=== PATIENT | female | born 1975 | race Caucasian/White ===

== ENCOUNTER → 2022-06-29 | Outpatient (CLI) | payer OTHER, SELFPAY ==
[2022-06-29 10:18] LABS: Hematocrit 41.8 % (37-47); Hemoglobin 13.8 g/dL (12.0-15.0); Mean Corpuscular Hgb 30.9 pg (27.0-32.0); Mean Corpuscular Volume 93.5 fL (81-99); Mean Platelet Vol. 11.9 fl (6.2-12.0); Platelet Count 288 K/mm3 (150-450); RBC Distribution Width CV 12.7 % (11.6-14.6); RBC Distribution Width SD 43.5 fl (35.1-43.9); Red Blood Count 4.47 M/mm3 (4.2-5.4); White Blood Count 8.5 K/mm3 (4.4-11.0)
[2022-06-29 11:01] LABS: ALB/GLOB Ratio 1.1 RATIO (0.9-2.4); AST(SGOT) 11 U/L (15-37); Alanine Aminotransfer ALT/SGPT 23 U/L (13-56); Albumin, Serum 3.6 g/dL (3.2-5.0); Alkaline Phosphatase 65 U/L (45-117); Anion Gap 3 (5-15); BUN 13 mg/dL (7-18); BUN/Creat Ratio 16.2 RATIO (10-20); Calcium,Total 8.6 mg/dL (8.5-10.1); Chloride 109 mmol/L (98-107); Cholesterol 177 mg/dL (200); EST Glomerular Filtration Rate 82 mL/min (>60); Est Glom Filt Rate - Afr Amer 100 mL/min (>60); Globulin 3.4 g/dL (2.2-4.2); Glucose 99 mg/dL (74-106); High Density Lipoprotein 51 mg/dL; Potassium 3.8 mmol/L (3.5-5.1); Sodium Level 138 mmol/L (136-145); Thyroid Stim Hormone (TSH) 2.24 uIU/mL (0.358-3.74); Triglycerides 78 mg/dL; Very Low Density Lipoprotein 16 mg/dL (5-40)
== END | disposition home or self-care (01) ==
LOC: MTLAB 07:11
PROVIDERS: PCP Nurse Practitioner Primary Care; Referring Provider Nurse Practitioner Primary Care; Visit Provider Nurse Practitioner Primary Care
DX: Z00.00 Encounter for general adult medical examination without abnormal findings (principal)
CPT/HCPCS: 36415; 80053; 80061; 84443; 85027

== ENCOUNTER → 2022-09-24 | Outpatient (CLI) | payer OTHER, SELFPAY ==
--- NOTE | 2022-09-21 | BRBX_PTH ---
PATIENT: RAGINI STAUFFER LOC: [facility] U#:[id number] AGE/SX: 46/F ROOM: RE09/24/[address]: Dr. 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 See comment. AM:jesica 09/27/2022 COMMENT Immunohistochemistry ([id number]) supports the above diagnosis. Case has been reviewed in consultation with Dr. Hooker who concurs with the above diagnosis. IDC:SJ MICROSCOPIC DESCRIPTION Slides are reviewed. GROSS DESCRIPTION Received in fixative is one container labeled with the patient's name and designated left breast tissue. The specimen consists of two cores of light andres tissue each measuring 1.5 cm in length and 0.1 cm in diameter. The specimen is totally submitted in one cassette. / AM 09/24/2022 TC:0 CPT: 23439 ADDENDUM ADDENDUM ADDENDUM ADDENDUM ADDENDUM ADDENDUM ADDENDUM ADDENDUM 11/17/2022 10:00 ADDENDUM 11/17/2022 10:00 ADDENDUM 11/17/2022 10:00 ADDENDUM 11/17/2022 10:00 ADDENDUM 11/17/2022 10:00 An order for Oncotype testing was received from Dr. Jenkins. This necessitated case review, block and slide selection by pathologist at [facility]. Breast Cancer Recurrence Score = 6 Results of the complete Oncotype testing ([employer] report) are viewable in EMR under: Reports - Pathology - Lab Pathology Report, Scanned.
--- NOTE | 2022-09-21 | IMM_PTH ---
PATIENT: RAGINI STUAFFER LOC: [facility] U#:[id number] AGE/SX: 46/F ROOM: RE09/24/[address]: Dr. Elver Byers MD : 1975 BED: DIS: 09/24/2022 SPEC #: [id number] RECD: 09/27/22 13:51 STATUS: ANNA MARIE REQ #: [id number] MARIANA: 09/21/22 00:[address]: Elver Byers DEPT: IMMUNOHISTOCHEMISTRY RECD BY: Alejandra Abdullahi ENTERED: 09/27/22 13:52 SP TYPE: IMMUNO OTHR DR: Jacquie Forrester, MAHI Tissues: Left breast, NOS Procedures: CALPONIN-1 (add) CK5-6 (add) CK8 (add) RENDON-2 (add) E-CAD (add) HER2 TEDDY (add) KI-67 (add) P53 (add) MI (add) P40 (add) ER (initial) PHYSICIAN & [address] [address] SPECIMEN INFORMATION: Tissue Source: Left breast tissue Clinical Info: Left breast biopsy Specimen Number: [id number] CPT code: 84683, 53635 x7, 96945 x3 METHODOLOGY: Deparaffinized sections of prefer/formalin-fixed tissue or PAP/DQ stained slides are incubated with monoclonal/polyclonal antibodies/oligonucleotide probes. Localization is made via biotin free immunoperoxidase method. Appropriate controls are performed and reacted as expected. Results on target cell population are indicated in the following table: RESULTS: ANTIBODY / CLONE RESULT P53 (DO-7) positive, 2% dim Ki-67 (30-9) positive, 5% CK8 (29frhfU36) positive CK5-6 (D5 & 1684) negative Calponin-1 (CW471H) negative P40 (BC28) negative E-Cad (ECH-6) positive RENDON-2 (SP21) positive MORPHOMETRIC ANALYSIS ER (clone 6F11) >95%, strong intensity MI (clone 16/1E2) >95%, strong intensity Her-2Neu (clone CB11) 0 The prognostic test for HER2 is performed on formalin-fixed paraffin embedded tissue. A 3+ (positive) staining pattern is defined as intense, homogeneous, complete, circumferential membranous staining in >10% of contiguous tumor cells. A similar weak (2+) staining pattern is interpreted as equivocal. OK follow-up testing is recommended for all equivocal cases. Positivity/negativity for ER/MI is reported if > or < 1% of the tumor cells are immuno- reactive, respectively. The ASCO/CAP criteria is used for scoring. Reference: Journal of Clinical Oncology, 2013; 31:7309-4709 & 2010; 16:8867-8301. Duration of fixation: 127.5 Hrs; Sample Adequate: Yes. These assays have not been validated on decalcified tissues. Results should be interpreted with caution given the likelihood of false negativity on decalcified specimens. These tests were developed and their performance characteristics determined by [facility]. They may not have been cleared or approved by the U.S. Food and Drug Administration. The FDA has determined that such clearance or approval is not necessary. The above immunohistochemical/dualISH markers are ordered and reviewed by the Pathologist. INTERPRETATION: Left breast, biopsy: Invasive ductal carcinoma, nuclear grade 1/3 Positive for estrogen receptors (favorable prognostic indicator). Positive for progesterone receptors (favorable prognostic indicator). Negative for overexpression of TIJ9qeg. AM:jesica 09/28/2022
--- NOTE | 2022-09-24 10:57 | BI_ITS ---
MAMMOGRAPHY - UNILATERAL DIAGNOSTIC: LEFT BREAST REASON FOR EXAM: Female, 46 years old. Postbiopsy and clip placement. PERTINENT HISTORY: Left breast biopsy. TECHNIQUE: Digital unilateral breast denis (3D mammographic acquisition) in the CC and MLO projections. 2-D mediolateral oblique (MLO) and craniocaudad (CC) views of both breasts were obtained. CAD: Full Field Digital Mammography with Computer Added Detection was performed. COMPARISON: None. FINDINGS: Breast Composition: The breasts are heterogeneously dense, which may obscure small masses. The tissue clip marker is seen in the upper mid medial aspect of the left breast. No other significant abnormalities are identified. BI/DIAG MAMM W/CAD, UNILAT IMPRESSION: Clip is seen within the upper mid medial aspect of the left breast. ASSESSMENT CATEGORY: BIRADS Category 2: Benign. A letter regarding these results will be sent to the patient by the facility within 30 days. Approximately 10% of breast cancers are not detected by mammography. A normal mammogram should not delay biopsy of a clinically suspicious abnormality. Electronically Signed: Reginald Underwood MD at 11:45 EDT ,
== END | disposition home or self-care (01) ==
PROVIDERS: PCP Nurse Practitioner Primary Care; Referring Provider Surgery; Visit Provider Surgery
DX: C50.912 Malignant neoplasm of unspecified site of left female breast (principal); R92.8 Other abnormal and inconclusive findings on diagnostic imaging of breast
CPT/HCPCS: 77065; 88305; 88341; 88342

== ENCOUNTER 2022-10-06 07:32 | Day surgery (SDC) | payer OTHER, SELFPAY ==
--- NOTE | 2022-10-04 09:19 | EKG12_ITS ---
Test Reason : PRE OP Blood Pressure : / mmHG Vent. Rate : 057 BPM Atrial Rate : 057 BPM P-R Int : 132 ms QRS Dur : 084 ms QT Int : 388 ms P-R-T Axes : 069 047 058 degrees QTc Int : 377 ms Sinus bradycardia Otherwise normal ECG Confirmed by PHILLIP HOLBROOK, OLU ([id number]), editor farm journal ROBY NICHOLSON ([id number]) on 10/05/2022 7:10:26 AM Referred By: Elver Byers Confirmed By:OLU FISHER MD
--- NOTE | 2022-10-04 09:25 | RAD_ITS ---
INDICATION: PREOP -- LEFT BREAST CANCER EXAMINATION/TECHNIQUE: X-RAY - XR Chest 2 Views COMPARISON: FINDINGS: LINES/DEVICES: None. LUNGS: No consolidation, edema or effusion. No pneumothorax. MEDIASTINUM AND CARDIOVASCULAR STRUCTURES: Cardiac silhouette not enlarged. Central airways and mediastinal contour are unremarkable. BONES AND SOFT TISSUES: Unremarkable. RAD/Chest PA and Lateral IMPRESSION: No radiographic evidence of acute cardiopulmonary disease. Electronically Signed: Pedro Mack, at 10:41 EDT ,
[2022-10-04 10:10] LABS: Hematocrit 43.7 % (37-47); Hemoglobin 14.4 g/dL (12.0-15.0); Mean Corpuscular Hgb 31.3 pg (27.0-32.0); Mean Platelet Vol. 11.9 fl (6.2-12.0); Platelet Count 252 K/mm3 (150-450); RBC Distribution Width CV 13.2 % (11.6-14.6); RBC Distribution Width SD 45.6 fl (35.1-43.9); White Blood Count 9.6 K/mm3 (4.4-11.0)
[2022-10-04 10:54] LABS: ALB/GLOB Ratio 0.9 RATIO (0.9-2.4); AST(SGOT) 11 U/L (15-37); Alanine Aminotransfer ALT/SGPT 16 U/L (13-56); Albumin, Serum 3.5 g/dL (3.2-5.0); Alkaline Phosphatase 67 U/L (45-117); Anion Gap 3 (5-15); BUN 9 mg/dL (7-18); BUN/Creat Ratio 11.2 RATIO (10-20); Chloride 110 mmol/L (98-107); EST Glomerular Filtration Rate 82 mL/min (>60); Est Glom Filt Rate - Afr Amer 99 mL/min (>60); Globulin 3.7 g/dL (2.2-4.2); Glucose 97 mg/dL (74-106); Protein, Total 7.2 g/dL (6.4-8.2); Sodium Level 139 mmol/L (136-145)
--- NOTE | 2022-10-06 | AXNB_PTH ---
PATIENT: RAGINI STAUFFER LOC: [facility] U#:[id number] AGE/SX: 46/F ROOM: RE10/06/[address]: Dr. Elver Byers MD : 1975 BED: DIS: 10/06/2022 SPEC #: [id number] RECD: 10/06/22 12:00 STATUS: ANNA MARIE VIVIEN #: [id number] MARIANA: 10/06/22 00:[address]: Elver Byers DEPT: SURGICAL PATHOLOGY RECD BY: Alejandra Abdullahi ENTERED: 10/06/22 13:22 SP TYPE: AX NODE BX OTHR DR: Jacquie Forrester NP Tissues: A - Axillary lymph node, NOS B - Left breast, NOS Procedures: Frozen Section (charge) Surgery Specimen Level V HEADER OPERATION: Left breast stereotactic wire loc with blue dye and radiotracer PRE-OP DIAGNOSIS: Abnormal left breast mammogram TISSUE SUBMITTED: A - [place] lymph nodes, frozen section, B - Left breast mass, wire - anterior, short stitch - superior, long stitch - lateral FROZEN SECTION DIAGNOSIS A. [place] lymph node, biopsy: Seven out of seven lymph nodes, negative for metastatic carcinoma. SJ:jesica 10/06/2022 MICROSCOPIC DIAGNOSIS A. Left axillary sentinel lymph nodes, biopsy: Seven out of seven lymph nodes negative for carcinoma. See comment. B. Left breast mass, lumpectomy: Invasive ductal carcinoma. See synoptic report below. AM:jesica 10/11/2022 COMMENT A. Immunohistochemistry ([id number]) supports the above diagnosis. B. INVASIVE BREAST CANCER SUMMARY: Procedure - excision with wire guidance Specimen: Type - partial breast Size - 7.0 x 5.5 x 2.0 cm Laterality - left breast Tumor: Site - not specified Size - 0.5 x 0.5 x 0.5 cm Histologic type - invasive ductal carcinoma. Focality - single focus of carcinoma. Histologic Grade (Fran grade): Glandular/tubular differentiation - score 1 Nuclear pleomorphism - score 2 Mitotic count - score 1 Overall grade - 1 (score of 4) Ductal carcinoma in situ: Present Estimated quantification (% of tumor volume) - 10% Number of blocks - 2 of 10 blocks Architectural pattern - cribriform Nuclear grade - grade 1/3 Necrosis - not present Lobular carcinoma in situ (LCIS) - not present Tumor extension: Skin - no skin present. Nipple - no nipple present. Skeletal muscle - no skeletal muscle present. Margins: Distance of invasive carcinoma from closest margin (anterior margin) - 10.0 mm Lymph nodes: Number of sentinel lymph nodes examined - 7 Total number of lymph nodes examined (sentinel and nonsentinel) - 7 No evidence of macrometastases, micrometastases or isolated tumor cells. Treatment effect - unknown Lymphvascular invasion - not identified Microcalcifications: present in neoplastic and non-neoplastic tissue. Additional pathologic findings - non proliferative fibrocystic change, adenosis, focal intraductal hyperplasia, focal lobular involution and banal microcalcifications. Ancillary studies - previously performed on section of tumor ([id number] / [id number]). ER - positive (>95%, strong intensity) KS - positive (>95%, strong intensity) Her2 sarah - negative (0) PATHOLOGIC STAGE: pT1a N0 Mx The above summary is in compliance with [employer] [place] (CAP) Cancer Protocols Checklist and [place] Joint Committee on Cancer (AJCC), Staging Manual, 8th Ed. Case has been reviewed in consultation with Dr. Hooker who concurs with the above diagnosis. IDC:SJ MICROSCOPIC DESCRIPTION Slides are reviewed. GROSS DESCRIPTION A - Received fresh for frozen section diagnosis labeled with the patient's name is a specimen designated sentinel lymph node. The specimen consists of a piece of adipose tissue containing nodule measuring 5.0 x 4.0 x 1.5 cm. Nodules consistent with lymph nodes measure 0.5 to 3.0 cm in greatest dimension. The lymph nodes are submitted entirely for frozen section diagnosis in seven cassettes as follows: 1??one bisected lymph node, 2 - two lymph nodes, 3 - two lymph nodes, 4 - one bisected lymph node, 5?&?6 - one bisected lymph node (largest lymph node). / SJ:jesica 10/06/2022 B - Received fresh for OR consultation labeled with the patient's name is a specimen designated left breast mass. The specimen consists of a lumpectomy specimen with wire guidance and orientation measuring 7.0 x 5.5 x 2.0 cm and weighing 48 gm. The specimen is differentially inked as follows: anterior - yellow, posterior - black, superior - blue, inferior - green, medial - red and lateral - orange. Serial sections reveal a spiculated white lesion measuring 0.5 cm in diameter and located 1.0 cm from its closest (anterior) margin of resection. The proximity of the lesion from closest margin is conveyed to the surgeon intraoperatively. The uninvolved breast parenchyma is mostly yellow-andres with occasional white streaks. No other mass lesion is identified. [employer] sections are submitted as follows: 1 & 2 - perpendicular margins, 3 & 4 - mass, bisected and totally submitted, 5-10 - c s s representative sections of uninvolved breast parenchyma. Note, sections will be submitted after additional fixation. / AM:jesica 10/07/2022 TC:0 CPT: 17492 x2, 35853, 41781
--- NOTE | 2022-10-06 | IMM_PTH ---
PATIENT: RAGINI STAUFFER LOC: [facility] U#:[id number] AGE/SX: 46/F ROOM: RE10/06/[address]: Dr. Elver Byers MD : 1975 BED: DIS: 10/06/2022 SPEC #: [id number] RECD: 10/11/22 13:29 STATUS: ANNA MARIE REQ #: [id number] MARIANA: 10/06/22 00:[address]: Elver Byers DEPT: IMMUNOHISTOCHEMISTRY RECD BY: Alejandra Abdullahi ENTERED: 10/11/22 13:30 SP TYPE: IMMUNO OTHR DR: Jacquie Forrester NP Tissues: A - Axillary lymph node, NOS Procedures: CK8 (add) Pankeratin (initial) Pankeratin (add) PHYSICIAN & INSTITUTION [place] [id number] SPECIMEN INFORMATION: Tissue Source: A - [place] lymph nodes Clinical Info: Abnormal left breast mammogram Specimen Number: [id number] CPT code: 10484, 45990 x11 METHODOLOGY: Deparaffinized sections of prefer/formalin-fixed tissue or PAP/DQ stained slides are incubated with monoclonal/polyclonal antibodies/oligonucleotide probes. Localization is made via biotin free immunoperoxidase method. Appropriate controls are performed and reacted as expected. Results on target cell population are indicated in the following table: RESULTS: ANTIBODY / CLONE RESULT Block A1 CK8 ([id number]) negative AE1-3 (AE1/AE3/PCK26) negative Block A2 CK8 (05hshtU45) negative AE1-3 (AE1/AE3/PCK26) negative Block A3 CK8 (42kowtB11) negative AE1-3 (AE1/AE3/PCK26) negative Block A4 CK8 (10teepZ12) negative AE1-3 (AE1/AE3/PCK26) negative Block A5 CK8 (21oqtjQ41) negative AE1-3 (AE1/AE3/PCK26) negative Block A6 CK8 (64bywjQ19) negative AE1-3 (AE1/AE3/PCK26) negative These tests were developed and their performance characteristics determined by [facility]. They may not have been cleared or approved by the U.S. Food and Drug Administration. The FDA has determined that such clearance or approval is not necessary. The above immunohistochemical/dualISH markers are ordered and reviewed by the Pathologist. INTERPRETATION: A. Left axillary sentinel lymph nodes, biopsy: Seven out of seven lymph nodes negative for carcinoma. AM:jesica 10/12/2022
--- NOTE | 2022-10-06 07:44 | NM_ITS ---
PROCEDURE: NUCLEAR MEDICINE Injection [place] Node - LEFT breast(s). REASON FOR EXAM: Female, 46 years old. Left breast cancer. TECHNIQUE: Downey node localization using radionuclide methods of the LEFT breast(s) was performed following subcutaneous administration of 1.1 mCi of of sulfur colloid Tc-99m. COMPARISON STUDIES : Comparison is made with prior mammogram dated September 24, 2022. FINDINGS: 1.1 mCi of technetium sulfur colloid was injected subcutaneously in 4 equal aliquots in the periareolar region. NM/Lymph Node Injection Only IMPRESSION: 1.1 mCi of technetium labeled sulfur colloid was injected subcutaneously in 4 equal aliquots in the periareolar region for sentinel node imaging. Electronically Signed: Reginald Underwood MD at 8:55 EDT ,
[2022-10-06 07:56] LABS: Internal QC Validated? YES +Cl - CLEAR BKGD; Pregnancy, Urine Negative Negative
[2022-10-06 08:07] VITALS: BP 117/73; PULSE 66; RESP 16; TEMP 36.7; O2SAT 100; BMI 25.4
[2022-10-06] MEDS: Lactated Ringers 1,000 ML 15 ML IV (08:17)
--- NOTE | 2022-10-06 08:59 | PCM.HP.BLA ---
History and Physical Date of Admission: 10/06/22 Allergies No Known Allergies Allergy (Verified 09/29/22 11:08) Medications No Known/Unobtainable [No Known Home Medications] 03/20/13 [History Confirmed 09/29/22] [facility] Medical History Abnormal mammogram of left breast Social History Smoking Status: Never smoker HPI HPI HPI: 46-year-old female returns status post ultrasound-guided needle core biopsy upper inner left breast that I performed for her on September 21, 2022. She returns now to discuss pathology. 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 I have no clinical evidence of metastatic disease. Based upon preoperative imaging this item is somewhere between 7 and 16 mm in size. She presents with her today for a consultative appointment. Left breast, core biopsy: Invasive ductal carcinoma with the follow characteristics: Nuclear grade ? 1/3 Maximal length ? 6 millimeters Rare microcalcification RESULTS: ANTIBODY / CLONE RESULT P53 (DO-7) positive, 2% dim Ki-67 (30-9) positive, 5% CK8 ([id number]) positive CK5-6 (D5 & 1684) negative Calponin-1 (KF818S) negative P40 (BC28) negative E-Cad (ECH-6) positive RENDON-2 (SP21) positive MORPHOMETRIC ANALYSIS ER (clone 6F11) >95%, strong intensity OR (clone 16/1E2) >95%, strong intensity Her-2Neu (clone CB11) 0 My previous notes reflect the following Visit Reasons: L BREAST BIRADS 4/5 Chief Complaint: FNA Allergies No Known Allergies Allergy (Verified 09/24/22 10:55) Medications No Known/Unobtainable [No Known Home Medications] 03/20/13 [History Confirmed 09/24/22] [facility] Medical History (Updated 09/24/22 @ 11:[address] Elver Byers MD) Abnormal mammogram of left breast Social History Smoking Status: Never smoker HPI HPI HPI: 46-year-old female was referred by Zefeirno Llanes for surgical consultation regarding abnormal left breast imaging and a written compromise surgical consult recommendations will return to him. At [facility] on September 20, 2022 the patient had left breast ultrasonography. This was performed because mammograms suggested architectural distortion left breast 11 o'clock position. On ultrasound a 7 mm irregular spiculated hypoechoic mass left breast 11 o'clock position +5 cm was identified. Left axillary lymph nodes were felt to be normal. BI-RADS Category 4. Biopsy recommended. On the mammogram the area of architectural distortion left breast 11 o'clock position was felt to be approximately 1.6 cm in diameter. I have reviewed the mammogram and ultrasound images and concur. 46-year-old female. G6, P1 85. Medical age 14. First of child born when she was 27. She did breast-feed briefly. No previous breast biopsies. Not on any estrogen replacement therapy. No family history of breast cancer. No nipple discharge or bleeding. On self breast examination she is not able to detect any masses. Only pertinent medical history is asthma but she has not required treatment for years. ROS General General: No weight change, appetite, fatigue, colon cancer, breast cancer or weakness HEENT HEENT: No difficulty swallowing, eye injury, eye surgery, swollen glands or hoarseness Endo Endocrine: No thyroid disease, diabetes mellitus, thyroid cancer, Hair loss, heat intolerance or cold intolerance Skin Skin: No rash or changing moles Breast Breast: No left breast lump, right breast lump, nipple discharge, breast pain, abnormal mammogram, abnormal US or breast enlargement Musc Musculoskeletal: Yes arthritis; No back problems, rheumatoid arthritis, gout or joint pain Cardio Cardiovascular: No murmur, pacemaker, heart disease, atrial fibrillation, high blood pressure, heart attack, heart stent, palpitations, shortness of breat with exertion or chest pain Psych Psychiatric: No depression, anxiety or hearing voices Resp Respiratory: No shortness of breath, No sleep apnea, No cough, No COPD, Yes asthma, No emphysema and No wheezing Gastro Gastrointestinal: No abdominal pain, No nausea or vomiting, No diarrhea, No constipation, No blood in stool, No acid reflux, No hemorrhoids, No ulcers, No gallbladder problem and No black,tarry stools Jordan Hematologic: No blood thinners, No blood disorders, No bleeding, No anemia and No blood clots Neuro Neurologic: No system reviewed and no additional complaints, except as documented, No as per HPI, No abnormal gait, No abnormal hearing, No abnormal movements, No abnormal speech, No behavioral changes, No burning sensations, No confusion, No convulsions, No disequilibrium, No dizziness, No localized weakness, No frequent falls, No headache(s), No lack of coordination, No loss of vision, No memory loss, No numbness, No other visual disturbances, No radicular pain, No restless legs, No sensory deficit, No syncope, No tingling, No tremor(s), No weakness and No other Exam Const General: cooperative, healthy appearing, comfortable and no acute distress [facility] Head: normal to inspection Chest Other: Bilateral breasts: No focal masses. No nipple discharge. No axillary clavicular adenopathy Left breast: Fibrous fullness upper inner left breast but no distinct mass Resp Effort & Inspection: normal respiratory effort Auscultation: clear to auscultation bilaterally Cardio Rate: regular rate Rhythm: regular rhythm Office Procedures Biopsy Provider Documentation Ultrasound-guided needle core biopsy upper inner left breast 11:00 +5 cm Timeout informed consent was obtained. Patient was taken the procedure room her was in attendance. Left breast was prepped with Betadine. Ultrasound was extensively used to identify what I felt matched the preoperative imaging obtained from [facility]. Under ultrasound guidance images were obtained. 1% lidocaine mixed 50-50 with 0.5% Marcaine was used as a local anesthetic. A total of 8 cc was used. A small stab incision was created. A 14-gauge Monopty needle was advanced to prefire depth. Pre and post fire films were obtained. 3 cores were obtained. A marking clip was left in position. Pressure was held for hemostasis. She seemed to tolerate the procedure well. The specimens were immediately transferred to formalin for analysis. Steri-Strip Telfa OpSite dressing applied followed by ice pack. Elver Byers M.D., F.A.C.S. Biopsy Breast Biopsy: [id number] US Guidance Procedure Time Out Time Out Informed consent given: Yes Consent signed: Yes Time out checklist: patient, procedure, site marked/identified, positioning of patient, supplies available, allergies confirmed and team agrees on procedure Time out staff in room: Yes Time out verified: Yes Time out date: 09/24/22 Time out time: 10:40 Assessment and Plan Assessment and Plan (1) Abnormal mammogram of left breast: Status: Acute Orders: Orders DIAG MAMM W/CAD, UNILAT Today R92.8 - Other abnormal and inconclusive findings on diagnostic imaging of breast Plan Imaging concerns upper inner left breast on mammogram suggesting 1.6 cm and on ultrasound a 7 mm item. Ultrasound imaging was challenging however I felt that I had identified the area of concern. The patient tolerated the ultrasound-guided needle core biopsy well. We will obtain post biopsy left unilateral mammograms to confirm clip placement. She has had an opportunity to ask and have questions answered. We will have her return to the office next week to review the biopsy site and pathology. I appreciate the opportunity of assisting with her surgical care. I have personally reviewed the patient's left mammogram postbiopsy images and believe that the marking clip appears to be in the clear location of concern identified on images provided from [facility]. Copy: KAYLAH YapC and Zeferino Llanes NP-C Elver Byers M.D., F.A.C.S. ROS General General: No weight change, appetite, fatigue, colon cancer, breast cancer or weakness HEENT HEENT: No difficulty swallowing, eye injury, eye surgery, swollen glands or hoarseness Endo Endocrine: No thyroid disease, diabetes mellitus, thyroid cancer, Hair loss, heat intolerance or cold intolerance Skin Skin: No rash or changing moles Breast Breast: No left breast lump, right breast lump, nipple discharge, breast pain, abnormal mammogram, abnormal US or breast enlargement Musc Musculoskeletal: Yes arthritis; No back problems, rheumatoid arthritis, gout or joint pain Cardio Cardiovascular: No murmur, pacemaker, heart disease, atrial fibrillation, high blood pressure, heart attack, heart stent, palpitations, shortness of breat with exertion or chest pain Psych Psychiatric: No depression, anxiety or hearing voices Resp Respiratory: No shortness of breath, No sleep apnea, No cough, No COPD, Yes asthma, No emphysema and No wheezing Gastro Gastrointestinal: No abdominal pain, No nausea or vomiting, No diarrhea, No constipation, No blood in stool, No acid reflux, No hemorrhoids, No ulcers, No gallbladder problem and No black,tarry stools Jordan Hematologic: No blood thinners, No blood disorders, No bleeding, No anemia and No blood clots Neuro Neurologic: No system reviewed and no additional complaints, except as documented, No as per HPI, No abnormal gait, No abnormal hearing, No abnormal movements, No abnormal speech, No behavioral changes, No burning sensations, No confusion, No convulsions, No disequilibrium, No dizziness, No localized weakness, No frequent falls, No headache(s), No lack of coordination, No loss of vision, No memory loss, No numbness, No other visual disturbances, No radicular pain, No restless legs, No sensory deficit, No syncope, No tingling, No tremor(s), No weakness and No other Assessment and Plan Assessment and Plan (1) Breast cancer: Status: Acute Qualifiers: Breast location: upper inner quadrant of breast Estrogen receptor status: positive Laterality: left Patient sex: female Qualified Code(s): C50.212 - Malignant neoplasm of upper-inner quadrant of left female breast; Z17.0 - Estrogen receptor positive status [ER+] Plan: Early stage invasive ductal carcinoma upper inner left breast ER/OR positive HER2 negative. I propose for her hematology oncology consultation. Pending that I believe that she would be a good candidate for upper inner quadrant left breast conservation surgery. I have proposed for her stereotactic wire localization with blue dye and nuclear tracer left axillary sentinel lymph node biopsy with subsequent wire localized left breast lumpectomy and follow-up radiotherapy. She is aware of the technique, benefit, risk, alternatives. She has had an opportunity ask and have questions answered. We will tentatively look for an operative date. I certainly appreciate the ongoing consultative assistance. Copy:Jacquie Forrester NP, RESERVATIONS SALES AGENT-C Elver Byers M.D., F.A.C.S The patient has been seen by Dr. John Jenkins hematology oncology and he is reviewed her situation. He concurs with proceeding with breast conservation surgery. Patient's had an opportunity to ask and have questions answered. She presents and we will proceed as noted. Elver Byers M.D., F.A.C.S.
--- NOTE | 2022-10-06 09:43 | BI_ITS ---
SURGICAL BREAST SPECIMEN RADIOGRAPH CLINICAL: Document presence of tissue clip marker in biopsy specimen. FINDINGS: Specimen shows presence of tissue clip marker. Electronically Signed: Reginald Underwood MD at 12:31 EDT , BI/Breast Biopsy Specimen IMPRESSION: undefined
--- NOTE | 2022-10-06 10:24 | OP.PCM_ITS ---
Problems Associated Problem List Diagnoses (1) Breast cancer, left: Report of Operation Date of Procedure: 10/06/22 Pre-Operative Diagnosis: Upper inner quadrant left breast invasive ductal carcinoma Post-Operative Diagnosis: Same Surgery/Procedure Performed:: Stereotactic wire localization upper inner left breast with subsequent blue dye and nuclear tracer left axillary sentinel lymph node biopsy and wire localized upper inner left breast lumpectomy. Description of Surgical Findings:: Timeout and informed consent was obtained. 46-year-old female was taken to the stereotactic room placed prone on the table the left breast was placed in a cranial caudal view the marking clip in question was rapidly identified stereotactic images obtained. Digital information was obtained on a single target site. The breast was prepped with Betadine. 1% lidocaine was used as a local anesthetic. 1 cc was used. The needle was advanced to depth placed 14 mm. The wire was displaced. On fast view demonstrated good localization. Sterile dressings were applied. She was subsequently taken the operating for planned definitive resection. The patient was subsequent taken to the operating room. She was placed upon the table normal general anesthesia. Ancef 2 g were given intravenously. Timeout informed consent obtained. The left arm was placed with soft roll to right angles to the table. Left breast and axilla sterilely prepped and draped. Oblique incision made in the left axilla partially guided by the neoprobe sharp dissection carried down through the left subcutaneous tissues. Hemostasis attained electrocautery and 3-0 Vicryl ligatures and hemoclips the lymphatic fluid tracking was identified in this tract to a moderately large blue lymph node while dissecting this free there were additional small lymph nodes all conglomerate together. The smaller lymph nodes were active on the neoprobe but did not have blue dye. I removed these conglomerate of lymph nodes as a con tinuum. Used the neoprobe there was some more inferior tissue which I dissected free and secured that with 3-0 Vicryl ligature. That tissue upon removal did not appear to have any lymph node tissue and was neoprobe negative. By visualization and palpation I found no additional hot or blue lymph node tissue. A Ray-Sherrell was left in place. Specimens were sent for frozen section. A curvilinear incision was made in the upper inner aspect of the left breast at the site of the wire localization circumferential dissection was performed with electrocautery lumpectomy was performed. Wire exited anteriorly a short suture superiorly and a long suture laterally. 4 small hemoclips were used to mika the biopsy site. The specimen sent for mammography. Pathology reported 7 lymph nodes negative. Pathology reported 1 cm clear anterior margin on the lesion. Both wounds were closed with deep layers of interrupted 3-0 Vicryl and then skin edges proximal and subsequent 4 Monocryl. Both wounds were anesthetized with 0.5% Marcaine. A total of 30 cc used. Sponge and instrument and needle counts were reported to the surgeon to be correct. Steri-Strips Telfa OpSite bulky dry dressings applied. Specimen left upper inner lumpectomy and left axillary sentinel lymph nodes. Drains none. Blood loss 5 cc. The patient was taken to the recovery room in satisfactory addition without apparent complication Synoptic Portion: Element Response Options Operation performed with curative intent. Yes Tracer(s) used to identify sentinel nodes in the upfront surgery (non-neoad juvant) setting (select all that apply). Blue dye and radioactive tracer Tracer(s) used to identify sentinel nodes in the neoadjuvant setting (select all that apply). Not applicable All nodes (colored or non-colored) present at the end of a dye-filled lymphatic channel were removed. Yes All significantly radioactive nodes were removed. Yes All palpably suspicious nodes were removed. Yes Biopsy-proven positive nodes marked with clips prior to chemotherapy were identified and removed. Not applicable Surgeon: Elver Byers Type of Anesthesia: General and Local Anesthesiologist: Eugenia Johnson
--- NOTE | 2022-10-06 10:29 | EX.PCM.DISCH ---
Discharge Instructions Procedure Breast Surgery Diet Discharge Diet: No restrictions Activity Discharge Activity: May Not Drive (for 2-3 days or while taking narcotic pain meds.) May shower in (days): 1 Lifting Restrictions: 10 pounds for 1 week. Dressing / Incision Call your doctor if your incision/area has: Continuous Slow Oozing and Sudden Increased Bleeding Call your doctor if you observe: Fever of 101 or Higher Suture Line Care: Avoid Pulling/Pushing and Avoid Pinching/Bending Remove Dressing in: 1 day Additional Dressing/Incision Instructions:: Remove bulky dressing tomorrow. May leave any opsite dressing for 3-4 days. Keep dressing in place until your follow-up appointment. Follow Up Care Please Follow Up With: Elver Byers MD When: Please contact the office at [phone] for office appointment follow-up on October 13, 2022 Test Results: Test results from this visit will be discussed in further detail at your follow-up appointment, if applicable. Discharge Plan Admission Primary Reason for Your Visit: Upper inner left breast cancer Attending Provider: Elver Byers Primary Care Provider: Jacquie Forrester NP Discharge Orders/Prescriptions Prescriptions: New hydrocodone-acetaminophen 5-325 mg tablet 1 tab PO Q6H PRN (Reason: pain) 2 Days Qty: 6 0RF Referrals / Follow Up: Jacquie Forrester NP, PROPERTY FIELD INSPECTOR-C [Primary Care Provider] - Disposition Disposition (needs filled in before D/C Order can be placed): Home, Self Care
[2022-10-06] MEDS: Cefazolin 2 GM in 0.9% Normal Saline 100 ML IV (10:43)
[2022-10-06] MEDS: Isosulfan Blue 1% 5 ML Vial (11:07)
[2022-10-06] MEDS: Bupivacaine Mpf 0.5% 30 ML VIAL (12:28)
[2022-10-06 12:46] VITALS: BP 114/64; BP 117/73; PULSE 64; RESP 16; TEMP 36.7; O2SAT 99
[2022-10-06 13:00] VITALS: BP 114/77; BP 117/73; PULSE 73; RESP 16; O2SAT 97
[2022-10-06 13:15] VITALS: BP 113/73; BP 117/73; PULSE 66; RESP 16; O2SAT 99
[2022-10-06 13:35] VITALS: BP 112/63; BP 117/73; PULSE 59; RESP 16; TEMP 36.6; O2SAT 98
[2022-10-06] MEDS: HYDROcodone Bitartrate/Apap 5/325 Tablet PO (14:11)
[2022-10-06 14:56] VITALS: BP 117/73; BP 123/68; PULSE 64; RESP 17; TEMP 37.2; O2SAT 99
== END 2022-10-06 15:08 | disposition home or self-care (01) ==
LOC: SDC 07:33 → AC 07:34
PROVIDERS: Anesthesiology; PCP Nurse Practitioner Primary Care; Referring Provider Surgery; Visit Provider Surgery
PROC: (CPT 19301; principal; 2022-10-06 10:45)
DX: C50.212 Malignant neoplasm of upper-inner quadrant of left female breast (principal); Z17.0 Estrogen receptor positive status [ER+]; M19.90 Unspecified osteoarthritis, unspecified site; J45.909 Unspecified asthma, uncomplicated
CPT/HCPCS: 19301; 38525; 19283; 00404; 19281; 36415; 38792; 71046; 76098; 80053; 81025; 85027; 88305; 88307; 88331; 88341; 88342; 93005; A4648; A9541; J7120; J2405; J3490; Q9968

== ENCOUNTER 2022-10-20 08:48 | Outpatient (CLI) | payer OTHER, SELFPAY ==
--- NOTE | 2022-10-20 08:56 | BD_ITS ---
STUDY: DUAL ENERGY X-RAY ABSORPTIOMETRY / DXA REASON FOR EXAM: Female, 46 years old. POSSIBLY STARTING TAMOXIFEN TECHNIQUE: Bone Mineral Density (BMD) measurements of lumbar spine and bilateral hips were obtained. COMPARISON: None. FINDINGS: Lumbar Spine (L1-L4): g/cm2 (1.199) / T-score (1.3) / Z-score (1.8) Findings are suggestive of normal bone density with a low fracture risk. Left Femur Total: g/cm2 (1.002) / T-score (0.5) / Z-score (0.8) Left Femoral Neck: g/cm2 (0.831) / T-score (-0.2) / Z-score (0.3) Right Femur Total: g/cm2 (0.972) / T-score (0.2) / Z-score (0.6) Right Femoral Neck: g/cm2 (0.835) / T-score (-0.1) / Z-score (0.3) BD/Dexa Bone Density Study IMPRESSION: The patient is considered normal as outlined below according to World Justin Organization (WHO) criteria with a low fracture risk. Reference Information: The T-score is the number of standard deviations above or below the standard which is normal for young adults at their peak bone mineral density. The World Health Organization (WHO) interprets the T-scores as follows: Above -1 Normal bone density Between -1 and -2.5 Osteopenia Equal to / or below -2.5 Osteoporosis As a practical clinical guideline, osteopenia may be graded as follows: Mild -1 through -1.5 Moderate -1.6 through -2.0 Severe -2.1 through -2.4 The Z-score is the number of standard deviations above or below age-matched controls. A Z-score of less than -1.5 would be considered abnormal. References: 1. NIH Osteoporosis and Related Bone Diseases www osteo.org 2. International Society for Clinical Densitometry www iscd.org 3. National Osteoporosis Foundation www nof.org Electronically Signed: Reginald Underwood MD at 9:01 EDT ,
== END 2022-10-20 23:59 | disposition home or self-care (01) ==
PROVIDERS: PCP Nurse Practitioner Primary Care; Referring Provider Internal Medicine Medical Oncology; Visit Provider Internal Medicine Medical Oncology
DX: Z13.820 Encounter for screening for osteoporosis (principal); C50.912 Malignant neoplasm of unspecified site of left female breast
CPT/HCPCS: 77080

== ENCOUNTER → 2023-02-25 | Outpatient (CLI) | payer OTHER, SELFPAY ==
[2023-03-04 12:08] LABS: HPV APTIMA, High Risk Negative (Negative)
== END | disposition home or self-care (01) ==
LOC: LABSPEC 16:50
PROVIDERS: PCP Nurse Practitioner Primary Care; Referring Provider Obstetrics & Gynecology; Visit Provider Obstetrics & Gynecology
DX: Z12.4 Encounter for screening for malignant neoplasm of cervix (principal)
CPT/HCPCS: 87624; 88175; G0145

== ENCOUNTER → 2023-02-28 | Outpatient (CLI) | payer OTHER, SELFPAY ==
--- NOTE | 2023-02-28 08:54 | US_ITS ---
STUDY: ULTRASOUND BREAST - RIGHT REASON FOR EXAM: Female, 47 years old. Right breast lump. TECHNIQUE: Axial and longitudinal images of the RIGHT breast were performed with a high resolution ultrasound transducer. # OF IMAGES: 29 COMPARISON: Comparison is made with prior mammogram done earlier in the day. FINDINGS: RIGHT Breast: The upper outer quadrant of the right breast was examined with ultrasound. There is evidence of probable glandular tissue. Mild ductal dilatation. US/Breast Limited Unilateral IMPRESSION: Mildly dilated ducts in the upper outer quadrant of the right breast. ASSESSMENT CATEGORY: BIRADS Category 2: Benign. A letter regarding these results will be sent to the patient by the facility within 30 days. Electronically Signed: Reginald Underwood MD at 10:41 EST ,
--- NOTE | 2023-02-28 08:54 | BI_ITS ---
MAMMOGRAPHY - BILATERAL DIAGNOSTIC REASON FOR EXAM: Female, 47 years old. Palpable lump in the upper-outer aspect of the right breast. PERTINENT HISTORY: Personal history of breast cancer. Prior left lumpectomy with radiation therapy. TECHNIQUE: Digital bilateral breast denis (3D mammographic acquisition) in the CC and MLO projections. 2-D mediolateral oblique (MLO) and craniocaudad (CC) views of both breasts were obtained. CAD: Full Field Digital Mammography with Computer Added Detection was performed. COMPARISON: Comparison is made with prior mammogram dated September 24, 2022 and October 06, 2022. Comparison is also made with prior outside examination is September 06, 2022. FINDINGS: Breast Composition: The breasts are heterogeneously dense, which may obscure small masses. There are no dominant masses or suspicious calcifications. The patient is status post lumpectomy in the deep upper slightly medial aspect of the left breast with resultant postoperative deformity. Surgical clips are seen in the left axillary region. No other significant abnormalities are identified. BI/DIAG MAMM W/CAD, BILAT IMPRESSION: Status post left lumpectomy with postoperative changes at the operative site as described. With the patient''s history of a palpable lump in the upper-outer quadrant of the right breast, targeted ultrasound correlation is recommended. ASSESSMENT CATEGORY: BIRADS Category 0: Incomplete. Need additional imaging evaluation. A letter regarding these results will be sent to the patient by the facility within 30 days. Approximately 10% of breast cancers are not detected by mammography. A normal mammogram should not delay biopsy of a clinically suspicious abnormality. Electronically Signed: Reginald Underwood MD at 10:12 [facility] [[email or web address]] ,
== END | disposition home or self-care (01) ==
LOC: OPBI 08:53
PROVIDERS: PCP Nurse Practitioner Primary Care; Referring Provider Obstetrics & Gynecology; Visit Provider Obstetrics & Gynecology
DX: N63.10 Unspecified lump in the right breast, unspecified quadrant (principal); Z85.3 Personal history of malignant neoplasm of breast
CPT/HCPCS: 76642; 77062; 77066; G0279

== ENCOUNTER 2023-03-06 15:57 | Emergency (ER) | payer OTHER, SELFPAY ==
[2023-03-06 15:59] VITALS: BP 124/77; PULSE 60; RESP 16; TEMP 36.6; O2SAT 98; BMI 23.8
--- NOTE | 2023-03-06 16:05 | EX.ED.GENINJ ---
HPI History of Present Illness Chief Complaint: Laceration PFSH PFS Medical History Abnormal mammogram of left breast Arthritis Asthma Bruises easily Cancer Dietary lactose intolerance Heartburn during Hypertension Migraine Non-smoker Wears glasses Home Medications multivitamin 1 tab PO DAILY 01/25/23 [History Last Taken Unknown] Allergy/AdvReac Type Severity Reaction Status Date / Time nalbuphine [From Nubain] Allergy Severe NUMBNESS Verified 03/06/23 15:59 Family History Mother Colon cancer Surgical History History of lumpectomy (~09/2022) Hx of breast biopsy Hx of colonoscopy Hx of dilation and curettage Social History (Updated 02/25/23 @ 09:19 by Keya Mcelroy) Smoking Status: Never smoker alcohol intake: never substance use type: does not use caffeine: No what type of physical activity do you participate in: none seatbelt use: always do you feel safe at home: Yes additional social history: -Stefan EXAM Physical Exam Const Vital Signs: 03/06/23 15:59 Temperature 97.9 F Temperature Source Temporal Pulse Rate 60 Respiratory Rate 16 Blood Pressure 124/77 H Blood Pressure Mean 92 Pulse Ox 98 Oxygen Delivery Method Room Air [facility] MDM Narrative Medical decision making narrative: HISTORY OF PRESENT ILLNESS: 47-year-old female presents with laceration to right pinky finger. REVIEW OF SYSTEMS: Pertinent positives: Laceration Pertinent negatives: Loss of sensation PHYSICAL EXAM: Nursing triage notes reviewed, Vital signs reviewed Constitutional: please see mdm HENT: MMM Eyes: Pupils equal round and reactive to light, Extraocular muscles intact Neck: No stridor, no JVD, full neck ROM Lungs: Clear to auscultation, No wheezing or rales. No increased work of breathing, no conversational dyspnea, no accessory muscle use, no nasal flaring. No respiratory distress noted Heart: Regular rate and rhythm, No murmurs, No rubs and No gallops, 2+ distal pulses (radial, femoral, posterior tibial) in all extremities Abdomen: Soft, there is no tenderness, rigidity, rebound or guarding, no obvious peritoneal signs, no palpable pulsatile abdominal masses, no auscultated abdominal bruit : No CVAT Extremities: No edema, intact Neuro: intact 5/5 strength with ok sign (median), intact finger abduction (ulnar) intact wrist extension (radial n). Intact sensation in the radial, ulnar, and median nerve distributions. Skin: Small approximately 0.5 cm linear laceration noted to the distal tip of the right fifth digit MEDICAL DECISION MAKING: Chief Complaint: Finger laceration MDM Narrative: The patient was hemodynamically stable, afebrile, nontoxic-appearing. Exam without foreign bodies, no tendon involvement. The patient suffered lacerations to the right distal fifth digit On exam there was no evidence of foreign bodies. There was no evidence of neurovascular injury. Patient had a normal distal vascular exam, and had intact ROM and sensation. There was also no evidence of tendon injury, with normal distal full range of motion, flexion, extension, abduction, abduction. There is no evidence of local joint space involvement at this time. Wound care applied (irrigation and/or local cleansing solution). Laceration repair was then performed please see procedure note. The patient was given signs and symptoms warnings for infection, such as increasing pain, redness, swelling, associated heat, pus or fever. Patient was given instructions for timely follow-up for removal. Patient agreed with the plan of care Procedure: Laceration repair. The procedure was performed by myself. Indication: Wound repair Risks and benefits: risks, benefits and alternatives were discussed Consent: Consent was obtained. Wound Details:0.5 cm linear laceration noted to the distal tip of the Fifth digit on the palmar surface. Foreign bodies noted, no tenderness involvement. Anesthesia: Digital block with 1% lidocaine Wound prep: Patient was prepped and draped in the usual sterile fashion. Tetanus: [Up to date Irrigation Solution: Saline Wound Preparation: Irrigated with tap water at home. Clinical chlorhexidine here. The wound was explored to its base in a bloodless field. Procedure Description: Placed 1, 5-0 Chromic Gut absorbable sutures with close approximation Patient tolerated the procedure well with no immediate complications The patient and/or family, caregivers express understanding. The patient and/or family, caregivers agrees with the plan. Shared decision making: I will have a discussion with the patient and or visitors regarding risk/benefits of further testing or admission. They will be made aware of of the risk/benefits inherent in this decision they will be given the opportunity to voice understanding. Total critical care time today provided was at least 0 minutes. This excludes separately billable procedures. Critical care time (if documented) is secondary to the patient having high probability of clinically significant/life threatening deterioration in the patient's condition which required my urgent intervention. Impression: 1. Finger laceration Dispo: discharge Discharge Plan Triage Chief Complaint: Laceration ED Provider: Rock Sheehan Dx/Rx/DC Orders Prescriptions: No Action multivitamin Tablet 1 tab PO DAILY Primary Care Provider: Jacquie Forrester NP Referrals: Jacquie Forrester NP, [facility] [Primary Care Provider] -
== END 2023-03-06 17:10 | disposition home or self-care (01) ==
LOC: ED 16:52
PROVIDERS: Emergency Provider Emergency Medicine; PCP Nurse Practitioner Primary Care; Visit Provider Emergency Medicine
DX: S61.216A Laceration without foreign body of right little finger without damage to nail, initial encounter (principal); I10 Essential (primary) hypertension; X58.XXXA Exposure to other specified factors, initial encounter
CPT/HCPCS: 12001; 99283

== ENCOUNTER → 2023-04-04 | Outpatient (CLI) | payer OTHER, SELFPAY | END | disposition home or self-care (01) | LOC: LABSPEC 12:26 | PROVIDERS: PCP Nurse Practitioner Primary Care | DX: Z48.817 Encounter for surgical aftercare following surgery on the skin and subcutaneous tissue (principal) | CPT/HCPCS: 87070; 87077; 87186; 87205 ==

== ENCOUNTER → 2023-07-27 | Outpatient (CLI) | payer OTHER, SELFPAY ==
[2023-07-27 17:19] LABS: Cholesterol 195 mg/dL (200); High Density Lipoprotein 63 mg/dL; Triglycerides 209 mg/dL; Very Low Density Lipoprotein 42 mg/dL (5-40)
[2023-08-01 20:09] LABS: Beef <0.10 kU/L (Class 0); Chocolate <0.10 kU/L (Class 0); Codfish <0.10 kU/L (Class 0); Corn <0.10 kU/L (Class 0); Egg, Whole <0.10 kU/L (Class 0); Milk (Cow) <0.10 kU/L (Class 0); Mussels <0.10 kU/L (Class 0); Peanut <0.10 kU/L (Class 0); Pork <0.10 kU/L (Class 0); Salmon <0.10 kU/L (Class 0); Shrimp <0.10 kU/L (Class 0); Soybean <0.10 kU/L (Class 0); Tuna <0.10 kU/L (Class 0); Wheat <0.10 kU/L (Class 0)
== END | disposition home or self-care (01) ==
LOC: BIMLAB 15:31
PROVIDERS: PCP Internal Medicine; Visit Provider Internal Medicine
DX: Z00.00 Encounter for general adult medical examination without abnormal findings (principal); Z13.6 Encounter for screening for cardiovascular disorders; T78.40XA Allergy, unspecified, initial encounter; X58.XXXA Exposure to other specified factors, initial encounter
CPT/HCPCS: 36415; 80061; 86003; 86005

== ENCOUNTER → 2024-03-02 | Outpatient (CLI) | payer OTHER, SELFPAY ==
--- NOTE | 2024-03-02 07:31 | BI_ITS ---
MAMMOGRAPHY - BILATERAL SCREENING REASON FOR EXAM: Female, 48 years old. Routine annual screening examination. PERTINENT HISTORY: Personal history of breast cancer. Prior left lumpectomy with radiation therapy. TECHNIQUE: Digital bilateral breast earnest (3D mammographic acquisition) in the CC and MLO projections. 2-D mediolateral oblique (MLO) and craniocaudad (CC) views of both breasts were obtained. CAD: Full Field Digital Mammography with Computer Added Detection was performed. COMPARISON: Comparison is made with prior study dated February 28, 2023 and October 06, 2022. FINDINGS: Breast Composition: The breasts are heterogeneously dense, which may obscure small masses. There are no dominant masses or suspicious calcifications. Once again, the patient is status post lumpectomy in the deep upper medial aspect of the left breast with resultant postoperative deformity. Surgical clips are also seen in the left axilla. No other significant abnormalities are identified. There has been no significant change since the prior study. BI/SCRN MAMM (CAD)W/EARNEST BILAT IMPRESSION: Stable bilateral screening mammogram. Yearly follow-up mammogram recommended. (A) ASSESSMENT CATEGORY: BIRADS Category 2: Benign. A letter regarding these results will be sent to the patient by the facility within 30 days. Approximately 10% of breast cancers are not detected by mammography. A normal mammogram should not delay biopsy of a clinically suspicious abnormality. [id number] Electronically Signed: Reginald Underwood MD at 8:44 EST ,
== END | disposition home or self-care (01) ==
LOC: OPBI 07:31
PROVIDERS: PCP Internal Medicine; Referring Provider Student in an Organized Health Care Education/Training Program; Visit Provider Student in an Organized Health Care Education/Training Program
DX: Z12.31 Encounter for screening mammogram for malignant neoplasm of breast (principal)
CPT/HCPCS: 77063; 77067

== ENCOUNTER → 2024-08-10 | Outpatient (CLI) | payer OTHER, SELFPAY ==
[2024-08-10 13:08] LABS: Cholesterol 172 mg/dL (<=200); High Density Lipoprotein 60 mg/dL; Low Density Lipoprotein Calc. 98 mg/dL; Triglycerides 69 mg/dL; Very Low Density Lipoprotein 14 mg/dL (5-40); cholesterol:hdl ratio screen 2.88
== END | disposition home or self-care (01) ==
LOC: BIMLAB 07:58
PROVIDERS: PCP Internal Medicine; Referring Provider Internal Medicine; Visit Provider Internal Medicine
DX: E78.2 Mixed hyperlipidemia (principal)
CPT/HCPCS: 36415; 80061

== ENCOUNTER → 2024-11-02 | Outpatient (CLI) | payer OTHER, SELFPAY ==
[2024-11-07 08:09] LABS: HPV APTIMA, High Risk Negative (Negative)
== END | disposition home or self-care (01) ==
LOC: LABSPEC 16:05
PROVIDERS: PCP Internal Medicine; Visit Provider Obstetrics & Gynecology
DX: Z12.4 Encounter for screening for malignant neoplasm of cervix (principal)
CPT/HCPCS: 87624; 88175; G0145

== ENCOUNTER → 2025-03-04 | Outpatient (CLI) | payer OTHER, SELFPAY ==
--- NOTE | 2025-03-04 07:15 | BI_ITS ---
EXAM: SCRN MAMM (CAD)W/EARNEST BILAT DATE: 03/04/2025 CLINICAL HISTORY: F, Age 49 y/o , FOLLOW UP FOR TREATED BREAST CANCER. History of left breast cancer. She has had a lumpectomy with radiation therapy. TECHNIQUE: Procedure Code: [id number] Modality: MG Procedure: SCRN MAMM (CAD)W/EARNEST BILAT COMPARISON: Prior exam(s) dated 03/02/2024, 02/28/2023. FINDINGS: TISSUE DENSITY: The breasts are heterogeneously dense, which may obscure small masses. Bilateral Breast Mammographic Findings: Architectural distortion, increased density and surgical clips are seen in the superior medial aspect of the left breast at the post lumpectomy site. This area appears stable. Surgical clips are seen in the axillary region. There is no mammographic abnormality in the left breast to suggest new or recurrent malignancy. Benign round calcifications are seen in the right breast. Stable nodular masslike densities are seen in the right breast. No suspicious masses, suspicious clustered microcalcifications, architectural distortion or secondary signs of malignancy is identified in the right breast. BI/SCRN MAMM (CAD)W/EARNEST BILAT IMPRESSION: Benign screening mammogram OVERALL FINAL ASSESSMENT BI-RADS 2: BENIGN RECOMMENDATION: Routine annual follow-up in 1 Year Additional Recommendation none A letter with findings and recommendations will be mailed to the patient. Reading Location: [id number]
--- OUTSIDE RECORDS SUMMARY | 2025-03-04 07:20 | XMS RPT_ITS | CCD ---
Author Organization [facility] Care Team Providers Care Commissioning Editor Name Role Phone Kady Munoz Primary Care Provider [phone] KADY MUNOZ Primary Care Unavailable GUANAKITO, PATITO Attending Unavailable KADY MUNOZ Primary Care Unavailable GUANAKITO, PATITO Referring Unavailable KADY MUNOZ Primary Care Unavailable GUANAKITO, PATITO Referring Unavailable KADY MUNOZ Primary Care Unavailable SHERI JIMÉNEZ - BRITNEY, MERISSA Kumar Primary Care Phys ician ASHLEY JIMÉNEZ-HOME HOUSEKEEPER, ANGÉLICA Attending Danilo WADE APRN - BRITNEY, MERISSA Kumar Primary Care U navailable ASHLEY JIMÉNEZ-HOME HOUSEKEEPER, ANGÉLICA Attending Danilo WADE APRN - BRITNEY, MERISSA Kumar Primary Care U navailable SHERI HENDERSONN - HOME HOUSEKEEPER, MERISSA Kumar Attending U navailable SHERI JIMÉNEZ - BRITNEY, MERISSA Kumar Primary Care U navailable Ashley VENEER STACKER, VENEER STACKER-C Angélica Primary Care Provider Ashley VENEER STACKER, VENEER STACKER-C Angélica Referring Provider [phone] Dr. Kady Byers Attending Provider [phone] Dr. Kady Byers Referring Provider Dr. Addison Larson Attending Provider Dr. John Jenkins Attending Provider Dr. Kady Byers Other Provider [phone] Ashley CHAMPAGNE, VENEER STACKER-C Angélica Primary Care Provider Ashley VENEER STACKER, VENEER STACKER-C Angélica Referring Provider [phone] Dr. Raymundo Tan Attending Provider Dr. Kady Byers Attending Provider Dr. John Jenkins Attending Provider Dr. Raymundo Tan Referring Provider Tye VENEER STACKER, VENEER STACKER-C Armida Attending Provider Dr. Julianna Hsu Attending Provider [phone] Fabio HERNADEZ, MARICARMEN Cesar Attending Provider Ashley VENEER STACKER, VENEER STACKER-C Angélica Primary Care Provider Dr. Raymundo Tan Attending Provider Dr. Raymundo Tan Referring Provider Ashley VENEER STACKER, VENEER STACKER-C Angélica Referring Provider [phone] Dr. John Jenkins Attending Provider Dr. Chelsi Elkins MD Primary Care Provider [phone] Brittni HOLBROOK, Dr. Gagnon Referring Provider Dr. Raymundo Tan DO Attending Provider Ezio Gardner Attending Provider Ashley VENEER STACKER-C, Angélica Referring Provider [phone] Chelsi Elkins MD Attending Provider Dr. Chelsi lEkins MD Primary Care Provider [phone] Dr. Chelsi Elkins MD Referring Provider Dr. Raymundo Tan DO Attending Provider Dr. Julianna Hsu DO Attending Provider Dr. Chelsi Elkins MD Primary Care Provider [phone] Dr. Chelsi Elkins MD Attending Provider Dr. Chelsi Elkins MD Referring Provider Angélica Ramirez Referring Unavailable Brittni, Chelsi Primary Care Unavailable Embarrass, Chelsi Attending Unavailable Embarrass, Chelsi Referring Unavailable Embarrass, Chelsi Primary Care Unavailable Ezio Gardner Attending Unavailable Brittni, Chelsi Referring Unavailable Julianna Hsu Attending Unavailabl e Embarrass, Chelsi Primary Care Unavailable Embarrass, Chelsi Primary Care Unavailable Raymundo Tan Attending Unavailable Embarrass, Chelsi Referring Unavailable John Jenkins Attending Unavailable Embarrass, Chelsi Primary Care Unavailable Brittni, Chelsi Referring Unavailable Brittni, Chelsi Primary Care Unavailable Raymundo Tan Attending Unavailable Raymundo Tan Referring Unavailable Embarrass, Chelsi Referring Unavailable Brittni, Chelsi Primary Care Unavailable Brittni, Chelsi Attending Unavailable Angélica Ramirez Primary Care Unavailable John Jenkins Referring Unavailable Raymundo Tan Attending Unavailable Embarrass, Chelsi Primary Care Unavailable Julianna Hsu Attending Unavailabl e Embarrass, Chelsi Primary Care Unavailable Raymundo Tan Attending Unavailable Brittni, Chelsi Referring Unavailable Brittni, Chelsi Primary Care Unavailable Raymundo Tan Attending Unavailable Allergies Allergy Classification Reported Allergen(s) Allergy Type Date of Onset Reaction(s) Facility (3 sources) Seasonal allergy; Translations: [SEASONAL ALLERGIES] Propensity to adverse reactions 3 Intolerance [facility] Work Phone: (12 sources) Nalbuphine; Translations: [nalbuphine] Drug Allergy 3 Paralysis (finding) [facility] Comment on above: PARALYSIS (1 source) Nalbuphine Drug Allergy 5 [facility] Repository Medications Current Medications Medication Drug Class(es) Dates Sig (Normalized) Sig (Original) Ashwagandha Extract 500 mg capsule (2 sources) Start: 11-02-2024 Ashwagandha Extract 500 mg capsule Active mg PO November 02, 2024 12:00am cephalexin 500 mg oral capsule (1 source) Cephalosporin Antibacterial Start: 09-07-2022 End: 09-17-2022 cephalexin 500 mg oral capsule Dose : 500 mg = 1 cap(s), Oral, q12h, X 10 day(s), # 20 cap(s), 0 Refill(s), 09/17/22 8:21:00 EDT, Pharmacy: [facility]/pharmacy #[id number], UTI (urinary tract infection), 179, cm, 09/07/22 7:33:00 EDT, Height, 83.9 Start Date: 09/07/22 Stop Date: 09/17/22 Status: Ordered fluticasone propionate 0.05 mg/actuat metered dose nasal spray (3 sources) Corticosteroid Start: 06-28-2022 Flonase 50 mcg/inh nasal spray qDay, 0 Refill(s) Start Date: 06/28/22 Status: Ordered loratadine 10 mg oral tablet (3 sources) Start: 11-01-2019 loratadine 10 mg oral tablet Dose : 10 mg = 1 tab(s), Oral, qDay, # 30 tab(s), 0 Refill(s) Start Date: 11/01/19 Status: Ordered Multivitamin preparation (7 sources) Start: 01-25-2023 take 1 tablet by mouth once daily Multivitamin Active 1 TABLET PO DAILY January 25, 2023 12:00am Start: 06-28-2022 take 1 tablet by abdirahman th once daily Multivitamin Dose = 1 tab(s), Oral, Daily, 0 Refill(s) Start Date: 06/28/22 Status: Ordered Multivitamin tablet (4 sources) Start: 01-25-2023 Multivitamin t ablet Active 1 {tbl} PO DAILY January 25, 2023 1:00am Probiotic (3 sources) Start: 06-28-2022 Probiotic take s Revly probiotic, 0 Refill(s) Start Date: 06/28/22 Status: Ordered Completed/Discontinued Medications Medication Drug Class(es) Dates Sig (Normalized) Sig (Original) acetaminophen 325 mg / HYDROcodone bitartrate 5 mg oral tablet (9 sources) Opioid Agonist Start: 10-06-2022 End: 01-25-2023 Hydrocodone-Acetami nophen 5-325 mg tablet Discontinued 1 {tbl} PO EVERY 6 HOURS as needed for pain 6 2 0 October 06, 2022 January 25, 2023 4:56pm Malignant neoplasm of left breast Malignant neoplasm of unspecified site of left female breast Start: 10-06-2022 End: 01-25-2023 take 1 tablet by mouth every six hours Hydrocodone-Acetaminophen Discontinued 1 TABLET PO EVERY 6 HOURS 6 2 October 06, 2022 January 25, 2023 3:56pm amoxicillin 875 mg / clavulanate 125 mg oral tablet (4 sources) Penicillin-class Antibacterial Start: 07-06-2024 End: 07-16-2024 Amoxicillin-Pot Clavulanate 875-125 mg tablet Discontinued 1 {tbl} PO Q12H 20 10 July 06, 2024 12:00am July 15, 2024 12:00am July 16, 2024 12:08am Acute sinusitis, unspecified benzonatate 200 mg oral capsule (8 sources) Non-narcotic Antitussive Start: 03-02-2023 End: 03-06-2023 take 1 capsule by mouth three times daily as needed for cough Benzonatate 200 mg capsule Discontinued 200 mg PO THREE TIMES A DAY as needed for cough 14 March 02, 2023 1:00am March 06, 2023 5:12pm betamethasone 0.0005 mg/mg topical ointment (4 sources) Corticosteroid Start: 07-27-2023 End: 06-25-2024 Betamethasone Dipropionate 0.05 % ointment Discontinued 1 NMA TOPICAL TWICE A DAY 15 July 27, 2023 12:00am June 25, 2024 3:33pm dexamethasone 6 mg oral tablet (8 sources) Corticosteroid Start: 03-02-2023 End: 03-06-2023 take 1 tablet by mouth once daily Dexamethasone 6 mg tablet Discontinued 6 mg PO DAILY 5 March 02, 2023 1:00am March 06, 2023 5:12pm Ipratropium [place] 21 mcg (0.03 %) spray,non-aerosol (4 sources) Start: 07-06-2024 End: 11-02-2024 Ipratropium [place] 21 mcg (0.03 %) spray,non-aerosol Discontinued 2 NMA INTRANASAL 2 to 3 times per day as needed for postnasal drainage 30 July 06, 2024 12:00am November 02, 2024 2:42pm administer into each nostril Start: 07-06-2024 Ipratropium [place] 21 mcg (0.03 %) spray,non-aerosol Active 2 NMA INTRANASAL 2 to 3 times per day as needed for postnasal drainage July 06, 2024 12:00am administer into each nostril Start: 07-06-2024 Ipratropium Br [place] 21 mcg (0.03 %) spray,non-aerosol Active 2 NMA INTRANASAL 2 to 3 times per day as needed for postnasal drainage July 06, 2024 12:00am administer into each nostril methylPREDNISolone 4 mg oral tablet (8 sources) Corticosteroid Start: 07-06-2024 End: 07-12-2024 take 1 tablet by mouth once Methylprednisolone (Medrol (Mt)) 4 mg tablets,dose pack Discontinued 4 mg PO per package directions 21 6 July 06, 2024 12:00am July 11, 2024 12:00am July 12, 2024 12:10am Start: 12-06-2023 End: 01-16-2024 take 1 tablet by mouth once Methylprednisolone (Medrol (Mt)) 4 mg tablets,dose pack Discontinued 0 PO per package directions December 06, 2023 12:00am January 16, 2024 5:11pm PO PER PKG DIR valACYclovir 1000 mg oral tablet (4 sources) Herpesvirus Nucleoside Analog DNA Polymerase Inhibitor, Herpes Simplex Virus Nucleoside Analog DNA Polymerase Inhibitor, Herpes Zoster Virus Nucleoside Analog DNA Polymerase Inhibitor Start: 05-10-2023 End: 05-31-2023 Valacyclovir 1 gram tablet Discontinued 2000 mg PO TWICE A DAY 4 May 10, 2023 1:00am May 31, 2023 3:32pm Problems Active Problems Problem Classification Problem Date Documented Date Episodic/Chronic Allergic reactions (4 sources) Allergic disorder of skin; Translations: [Allergic contact dermatitis, unspecified cause] 07-09-2024 Episodic Cancer of breast (20 sources) Malignant tumor of breast ; Translations: [Malignant neoplasm of unspecified site of unspecified female breast] Onset: 01-14-2025 09-29-2022 Chronic Comment on above: L breast invasive du ctal carcinoma, S/P L Lumpectomy and axillary dissection on 10/06/2021.Tumor size 5mm, no axillary lymph nodes. Grade 1.Prognostic stage IA(pT1a pN0 M0). ER/ID positive, Her2 negative.Comes for follow up. Oncotype DX recurrence score 6.Finished adjuvant Radiation.On observation.Comes for follow up.No clinical evidence of disease. Cancer of breast (1 source) Personal history of malignant neoplasm of breast; Translations: [Personal history of malignant neoplasm of breast] Onset: 01-14-2025 Episodic Coagulation and hemorrhagic disorders (20 sources) Factor V Leiden mutation; Translations: [Activated protein C resistance] Onset: 01-14-2025 01-25-2023 Chronic Comment on above: APC positive, Factor V Leiden Positive. Disorders of lipid metabolism (4 sources) Mixed hyperlipidemia; Translations: [Mixed hyperlipidemia] Onset: 08-14-2024 07-09-2024 Chronic Genitourinary symptoms and ill-defined conditions (2 sources) Unspecified symptoms and signs involving the genitourinary system; Translations: [Unspecified symptoms and signs involving the genitourinary system] Onset: 09-07-2022 Episodic Immunizations and screening for infectious disease (3 sources) Immunization due; Translations: [Encounter for immunization] 07-09-2024 Episodic Other screening for suspected conditions (not mental disorders or infectious disease) (17 sources) Mammography abnormal; Translations: [Other abnormal and inconclusive findings on diagnostic imaging of breast] Onset: 05-26-2021 Episodic Other skin disorders (1 source) Disorder of hand; Translations: [Disorder of the skin and subcutaneous tissue, unspecified] Episodic Residual codes; unclassified (1 source) Estrogen receptor positive status [ER+]; Translations: [Estrogen receptor positive status [ER+]] Onset: 01-14-2025 Episodic Screening and history of mental health and substance abuse codes (3 sources) Patient encounter status; Translations: [Encounter for screening for depression] 07-09-2024 Episodic Unclassified (3 sources) Exposure to 2019 novel coronavirus 11-01-2019 Unclassified (3 sources) Patient encounter status 06-28-2022 Urinary tract infections (2 sources) Urinary tract infectious disease 09-07-2022 Episodic Viral infection (7 sources) Verruca plantaris; Translations: [Herpetic alessio] 06-28-2022 Episodic Past or Other Problems Problem Classification Problem Date Documented Da te Episodic/Chronic Other upper respiratory infections (11 sources) Acute sinusitis; Translations: [Acute sinusitis, unspecified] Onset: 07-06-2024 07-09-2024 Episodic Results Test Name Value Interpretation Reference Range Facility CA 15-3on 01-16-2025 CA 15-3 16.6 U/mL Normal 0.0-25.0 [facility] Comment on above: Result Comment: [employer] Electrochemiluminescence Immunoassay (ECLIA) Values obtained with different assay methods or kits cannot be used interchangeably. Results cannot be interpreted as absolute evidence of the presence or absence of malignant disease. Performed at: [address] [id number] [employer] Consultant: Ministerio Steele PhD, Phone: [phone] Performed By: #### L 3100.5030, L3100.5040, L3100.2300, L3100.5000 #### [facility] [address] [place], [place], [id number] (424) CA 27.29on 01-16-2025 CA 27.29 16.5 U/mL Normal 0.0-38.6 [facility] Comment on above: Result Comment: [employer] Immunochemiluminometric Methodology (ICMA) Values obtained with different assay methods or kits cannot be used interchangeably. Results cannot be interpreted as absolute evidence of the presence or absence of malignant disease. Performed By: #### L 3100.5030, L3100.5040, L3100.2300, L3100.5000 #### [facility] [address] [place], [place], [id number] Cancer Antigen 125on 025 CA 125 11.8 U/mL Normal 0.0-38.1 [facility] Comment on above: Result Comment: [employer] Electrochemiluminescence Immunoassay (ECLIA) Values obtained with different assay methods or kits cannot be used interchangeably. Results cannot be interpreted as absolute evidence of the presence or absence of malignant disease. Performed By: #### L 3100.5030, L3100.5040, L3100.2300, L3100.5000 #### [facility] [address] [place], [place], [id number] Carcinoembryonic Antigenon 1 03-18-2024 CEA < 0.6 Normal 0.0-4.7 [facility] Comment on above: Result Comment: Nons mokers <3.9 Smokers <5.6 [employer] Electrochemiluminescence Immunoassay (ECLIA) Values obtained with different assay methods or kits cannot be used interchangeably. Results cannot be interpreted as absolute evidence of the presence or absence of malignant disease. Performed By: #### L 3100.5030, L3100.5040, L3100.2300, L3100.5000 #### [facility] [address] [place], [address] CBC W/Diff, Automatedon 11-0 3-2025 Absolute Lymph 2.31 X10 3/uL Normal 0.83-4.51 [facility] Comment on above: Performed By: #### L 504.2610, L500.4050, L100.0100 #### [facility] [address] [place], [address] Absolute Neut 5.2 X10 3/uL Normal 2.0-7.7 [facility] Comment on above: Performed By: #### L 504.2610, L500.4050, L100.0100 #### [facility] [address] [place], [address] Basophils/100 WBC (Bld) 0.6 % Normal 0-1 [facility] Comment on above: Performed By: #### L 504.2610, L500.4050, L100.0100 #### [facility] [address] [place], [address] Eosinophils/100 WBC (Bld) 2.3 % Normal 0-5 [facility] Comment on above: Performed By: #### L 504.2610, L500.4050, L100.0100 #### [facility] [address] [place], [address] Erythrocyte distribution width (RBC) [Ratio] 12.6 % Normal 11.6-14.6 [facility] Comment on above: Performed By: #### L 504.2610, L500.4050, L100.0100 #### [facility] [address] [place], [address] Hematocrit (Bld) [Volume fraction] 41.9 % Normal 37-47 [facility] Comment on above: Performed By: #### L 504.2610, L500.4050, L100.0100 #### [facility] [address] [place], [address] Hemoglobin (Bld) [Mass/Vol] 14.2 g/dL Normal 12.0-15.0 [facility] Comment on above: Performed By: #### L 504.2610, L500.4050, L100.0100 #### [facility] [address] [place], [address] IG% 0.400 Normal 0.0-0.9 [facility] Comment on above: Result Comment: IG% - Immature Granulocytes (promyelocytes, myelocytes and metamyelocytes) > 1% indicates that a LEFT SHIFT is Present. Performed By: #### L 504.2610, L500.4050, L100.0100 #### [facility] [address] [place], [address] Lymphocytes/100 WBC (Bld) 28.1 % Normal 19-41 [facility] Comment on above: Performed By: #### L 504.2610, L500.4050, L100.0100 #### [facility] [address] [place], [address] MCH (RBC) [Entitic mass] 31.6 pg Normal 27.0-32.0 [facility] Comment on above: Performed By: #### L 504.2610, L500.4050, L100.0100 #### [facility] [address] [place], [address] MCHC (RBC) [Mass/Vol] 33.9 g/dL Normal 32-36 [facility] Comment on above: Performed By: #### L 504.2610, L500.4050, L100.0100 #### [facility] [address] [place], [address] MCV (RBC) [Entitic vol] 93.3 fL Normal 81-99 [facility] Comment on above: Performed By: #### L 504.2610, L500.4050, L100.0100 #### [facility] [address] [place], [address] Monocytes/100 WBC (Bld) 5.7 % Normal 0-10 [facility] Comment on above: Performed By: #### L 504.2610, L500.4050, L100.0100 #### [facility] [address] [place], [address] Neutrophils/100 WBC (Bld) 62.9 % Normal 47-70 [facility] Comment on above: Performed By: #### L 504.2610, L500.4050, L100.0100 #### [facility] [address] [place], [address] Nucleated RBC (Bld) [#/Vol] 0 10*3/uL Normal 0-5 [facility] Comment on above: Performed By: #### L 504.2610, L500.4050, L100.0100 #### [facility] [address] [place], [address] Platelet mean volume (Bld) [Entitic vol] 11.4 fL Normal 6.2-12.0 [facility] Comment on above: Performed By: #### L 504.2610, L500.4050, L100.0100 #### [facility] [address] [place], [address] Platelets (Bld) [#/Vol] 267 10*3/uL Normal 150-450 [facility] Comment on above: Performed By: #### L 504.2610, L500.4050, L100.0100 #### [facility] [address] [place], [address] RBC (Bld) [#/Vol] 4.49 10*6/uL Normal 4.2-5.4 [facility] Comment on above: Performed By: #### L 504.2610, L500.4050, L100.0100 #### [facility] [address] [place], [address] RDW SD 43.7 fl Normal 35.1-43.9 [facility] Comment on above: Performed By: #### L 504.2610, L500.4050, L100.0100 #### [facility] [address] [place], [address] WBC (Bld) [#/Vol] 8.2 10*3/uL Normal 4.4-11.0 [facility] Comment on above: Performed By: #### L 504.2610, L500.4050, L100.0100 #### [facility] [address] [place], [address] Comprehensive Metabolic Prof [facility] 01-14-2025 Albumin [Mass/Vol] 4.3 g/dL Normal 3.5-5.0 [facility] Comment on above: Performed By: #### L 504.2610, L500.4050, L100.0100 ####[facility] [address] [place], [address] Albumin/Globulin [Mass ratio] 1.7 {ratio} Normal 0.9-2.4 [facility] Comment on above: Performed By: #### L 504.2610, L500.4050, L100.0100 ####[facility] [address] [place], [address] ALK PHOS 70 U/L Normal 35-104 [facility] Comment on above: Performed By: #### L 504.2610, L500.4050, L100.0100 ####[facility] [address] [place], [address] ALT [Catalytic activity/Vol] 22 U/L Normal <=34 [facility] Comment on above: Performed By: #### L 504.2610, L500.4050, L100.0100 ####[facility] [address] [place], [address] AST [Catalytic activity/Vol] 21 U/L Normal <=31 [facility] Comment on above: Performed By: #### L 504.2610, L500.4050, L100.0100 ####[facility] [address] [place], [address] Bilirubin [Mass/Vol] 0.35 mg/dL Normal 0.00-1.30 [facility] Comment on above: Performed By: #### L 504.2610, L500.4050, L100.0100 ####[facility] [address] [place], [address] BUN/CRE 13.0 RATIO Normal 10-20 [facility] Comment on above: Performed By: #### L 504.2610, L500.4050, L100.0100 ####[facility] [address] [place], [address] Calcium [Mass/Vol] 9.3 mg/dL Normal 7.6-11.0 [facility] Comment on above: Performed By: #### L 504.2610, L500.4050, L100.0100 ####[facility] [address] [place], [address] Chloride [Moles/Vol] 102 mmol/L Normal 98-108 [facility] Comment on above: Performed By: #### L 504.2610, L500.4050, L100.0100 ####[facility] [address] [place], [address] CO2 [Moles/Vol] 25.7 mmol/L Normal 21.0-32.0 [facility] Comment on above: Performed By: #### L 504.2610, L500.4050, L100.0100 ####[facility] [address] [place], [address] Creatinine [Mass/Vol] 0.76 mg/dL Normal 0.70-1.20 [facility] Comment on above: Performed By: #### L 504.2610, L500.4050, L100.0100 ####[facility] [address] [place], [address] ECRCL 109.50 ml/min Normal 50-250 [facility] Comment on above: Performed By: #### L 504.2610, L500.4050, L100.0100 ####[facility] [address] [place], [address] GAP 9 Normal 5-15 [facility] Comment on above: Performed By: #### L 504.2610, L500.4050, L100.0100 ####[facility] [address] [place], [address] GFR/1.73 sq M.predicted among non-blacks MDRD (S/P/Bld) [Vol rate/Area] 97 mL/min/{1.73_m2} Normal >60 [facility] Comment on above: Result Comment: mL/m in/1.73m2 CKD-EPI Creatinine Equation (2020) Performed By: #### L 504.2610, L500.4050, L100.0100 ####[facility] [address] [place], [address] Globulin (S) [Mass/Vol] 2.5 g/dL Normal 2.2-4.2 [facility] Comment on above: Performed By: #### L 504.2610, L500.4050, L100.0100 ####[facility] [address] [place], [address] Glucose [Mass/Vol] 133 mg/dL High 70-99 [facility] Comment on above: Performed By: #### L 504.2610, L500.4050, L100.0100 ####[facility] [address] [place], [address] Potassium [Moles/Vol] 3.9 mmol/L Normal 3.3-5.1 [facility] Comment on above: Performed By: #### L 504.2610, L500.4050, L100.0100 ####[facility] [address] [place], [address] Sodium [Moles/Vol] 137 mmol/L Normal 133-145 [facility] Comment on above: Performed By: #### L 504.2610, L500.4050, L100.0100 ####[facility] [address] [place], [address] T PROT 6.8 g/dL Normal 5.9-8.4 [facility] Comment on above: Performed By: #### L 504.2610, L500.4050, L100.0100 ####[facility] [address] [place], [address] Urea nitrogen [Mass/Vol] 10 mg/dL Normal 4-19 [facility] Comment on above: Performed By: #### L 504.2610, L500.4050, L100.0100 ####[facility] [address] [place], [address] LDHon 01-14-2025 LDH 135 U/L Normal 84-246 [facility] Comment on above: Order Comment: 1 Performed By: #### L 504.2610, L500.4050, L100.0100 ####[facility] [id number] [place], [address] Oncology Visit Reporton Oncology Visit Report [facility] [address] [place] [address] OFFICE VISIT Date of Service: 01/14/25 1342 MR#: [id number] Acct: [id number] Name: QUETA STAUFFER Rep #: [id number] : 1975 From: John Jenkins MD Age/Sex: 49/F [place] [facility] Status: Signed HPI Subjective Date of Service 01/14/25 Chief Complaint F/u for L breast cancer. History of Present Illness 49y.o.woman had abnormal screening mammogram on 09/20/2022 with 1.6cm L Breast lesion. US on the same day showed 7mm UI quadrant nodule. She has a history of positive Factor V Leiden about 15yrs ago. She was referred to Dr. Byers, had US guided biopsy of the L breast nodule on 09/24/2022. Pathology showed Invasive ductal carcinoma, ER >95%, ID>95%, Her2 negative, Ki67 5%. She met Dr. Byers who has suggested Lumpectomy and sentinel node dissection. She went on to have L lumpectomy and axillary dissection on 10/06/2022. Pathology showed IDC, tumor size 5mm, grade 1, margins negative, LN 7/7 negative. Oncotype DX recurrence score was 6. Factor V Leiden was positive. Completed adjuvant Radiation therapy from 12/06/2022 to 12/27/2022. She is on observation, comes for follow up. Feels well. [facility] Medical History Allergic dermatitis COVID COVID toes Herpetic alessio Wears glasses Cancer Arthritis Bruises easily Migraine Dietary lactose intolerance Heartburn during Asthma Non-smoker Hypertension Abnormal mammogram of left breast Surgical History History of lumpectomy ( 09/2022) Hx of breast biopsy Hx of colonoscopy Hx of dilation and curettage Family History Mother Colon cancer, Onset Age: 70 Afib Heart disease Hypertension Hyperlipidemia Father Lewy body dementia Diabetes Hypertension Social History adopted: No household members: spouse current occupational status: employed 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 pets and animals: Yes Smoking Status: Never smoker Electronic Cigarette Use: not used alcohol intake: current alcohol intake frequency: holidays/special occasions only substance use type: does not use diet: gluten free, lactose free and other caffeine: No what type of physical activity do you participate in: walking frequency: 1-2 times per week seatbelt use: always do you feel safe at home: Yes additional social history: -Stefan Intake Vital Signs 11/02/24 14:38 01/14/25 13:42 01/14/25 13:44 Height 5 ft 11 in 5 ft 11 in 5 ft 11 in Weight: 85.36 kg BMI 26.2 BP 118/84 H Blood Pressure Location Rt brachial Position Sitting Respiration 18 Pulse 66 Pulse Source Monitor Temp 98.4 F Temperature Source Temporal Artery Pulse Oximetry (%) 98 Oxygen Delivery Method room air Intake Accompanied by: Self Is patient in pain?: No Allergies nalbuphine (From Nubain) Allergy (Severe, Verified 01/14/25 13:42) NUMBNESS Medications ???Medication ???Instructions ???Recorded ???Confirmed ???Type multivitamin 1 tab PO DAILY 01/25/23 01/14/25 H istory ashwagandha extract 500 mg capsule mg PO 11/02/24 01/14/25 History Central Venous Access Central Venous Access: No Exam Physical Exam Narrative ECOG 0 Const alert, oriented x3 and no apparent distress Eyes no scleral icterus Neck supple Resp normal respiratory effort and clear to auscultation bilaterally Cardio regular rate, regular rhythm, S1 normal heart sound, S2 normal heart sound and no murmurs Psych mental status grossly normal Attitude: calm and engaged Coding Level of Care Code Off vis,est,level 4 Diagnoses Malignant neoplasm of upper-inner quadrant of left breast in female, estrogen receptor positive C50.212; Z17.0 Breast location: upper inner quadrant of breast Estrogen receptor status: positive Patient sex: female Factor V Leiden mutation D68.51 Assessment and Plan Assessment and Plan (1) Breast cancer, left: Status: Acute Qualifiers: Breast location: upper inner quadrant of breast Estrogen receptor status: positive Patient sex: female Qualified Code(s): C50.212 - Malignant neoplasm of upper-inner quadrant of left female breast; Z17.0 - Estrogen receptor positive status [ER+] Comment: L breast invasive ductal carcinoma, S/P L Lumpectomy and axillary dissection on 10/06/2021. Tumor size 5mm, no axillary lymph nodes. Grade 1. Prognostic stage IA(pT1a pN0 M0). ER/ID positive, Her2 negative. Oncotype DX recurrence score 6. Finished adjuvant Radiation. On observation. Comes for follow up. Labs reviewed, within normal limits. No clinical ulisses (more content not included)... Normal [facility] PAP IG HPV APTIMA 16/18,45on 11-07-2024 ADEQ Comment Normal . [facility] Comment on above: Order Comment: Speci men Comment: [id number] Specimen Comment: No. of containers..01 ThinPrep Vial Result Comment: Sati sfactory for evaluation. No endocervical component is identified. Performed By: #### L 7400.0280 #### [facility] [address] [place], [address] COMM . Normal . [facility] Comment on above: Order Comment: Speci men Comment: [id number] Specimen Comment: No. of containers..01 ThinPrep Vial Performed By: #### L 7400.0280 #### [facility] [address] [place], [place], [id number] COMMENT Comment Normal . [facility] Comment on above: Order Comment: Speci men Comment: [id number] Specimen Comment: No. of containers..01 ThinPrep Vial Result Comment: This liquid based ThinPrep(R) pap test was screened with the use of an image guided system. Performed By: #### L 7400.0280 #### [facility] [address] [place] [id number] DIAG Comment Normal . [facility] Comment on above: Order Comment: Speci men Comment: [id number] Specimen Comment: No. of containers..01 ThinPrep Vial Result Comment: NEGA TIVE FOR INTRAEPITHELIAL LESION OR MALIGNANCY. Performed By: #### L 7400.0280 #### [facility] [address] [place], [place], [id number] HPV APTIMA, HR Negative Normal Negative [facility] Comment on above: Order Comment: Speci men Comment: [id number] Specimen Comment: No. of containers..01 ThinPrep Vial Result Comment: This nucleic acid amplification test detects fourteen high- risk HPV types (16,18,31,33,35,39,45,51,52,56,58,59,66,68) without differentiation. Performed By: #### L 7400.0280 #### [facility] [address] [place], [place], [id number] HPV Lu Rfx Comment Normal . [facility] Comment on above: Order Comment: Speci men Comment: [id number] Specimen Comment: No. of containers..01 ThinPrep Vial Result Comment: Crit erhetal not met, HPV Genotype not performed. Performed at: - [address] [id number] [employer] Consultant: Carmen Glass MD, Phone: [phone] Performed at: = - [facility] [address] [id number] [employer] Consultant: Carmen Glass MD, Phone: [phone] Performed By: #### L 7400.0280 #### [facility] [address] [place], [place], [id number] PAPSMR Comment Normal . [facility] Comment on above: Order Comment: Speci men Comment: [id number] Specimen Comment: No. of containers..01 ThinPrep Vial Result Comment: The Pap smear is a screening test designed to aid in the detection of premalignant and malignant conditions of the uterine cervix. It is not a diagnostic procedure and should not be used as the sole means of detecting cervical cancer. Both false-positive and false-negative reports do occur. Performed By: #### L 7400.0280 #### [facility] [address] [place], [place], [id number] PERFORM Comment Normal . [facility] Comment on above: Order Comment: Speci men Comment: [id number] Specimen Comment: No. of containers..01 ThinPrep Vial Result Comment: Julio Cesar Oleary, Simulation Analyst (ASCP) Performed By: #### L 7400.0280 #### [facility] [address] [place], [place], [id number] Cervical or vaginal specimen microscopic examination by liquid based cytology (reportOrdered By: Julianna Lewis on 11-02-2024 Cytology report Cyto stain.thin prep Doc (Cvx/Vag) Comment . [facility] Comment on above: Criteria not met, HP V Genotype not performed.Performed at: [facility] [address] [id number] Director: Carmen Glass MD, Phone: [phone] at: =[facility] [id number] Director: Carmen Glass MD, Phone: [phone] Cervical or vagninal specime n microscopic examination by cytology stain (reported asOrdered By: Julianna Lewis on 11-02-2024 Cytology report Cyto stain Doc (Cvx/Vag) Comment . [facility] Comment on above: The Pap smear is a s creening test designed to aid in thedetection of premalignant and malignant conditions of theuterine cervix. It is not a diagnostic procedure andshould not be used as the sole means of detecting cervicalcancer. Both false-positive and false-negative reports dooccur. Detection in cervical specim en of any of human papilloma virus (HPV) 16, 18, 31, 33,Ordered By: Julianna Lewis on 11-02-2024 HPV 16+18+31+33+35+39+45+ 51+52+56+58+59+66+68 DNA Probe+sig amp Ql (Cvx) Negative Negative [facility] Comment on above: This nucleic acid am plification test detects fourteen high- risk HPV types (16,18,31,33,35,39,45,51,52,56,58,59,66,68)without differentiation. Laboratory - CytologyOrdered By: Julianna Lewis on 11-02-2024 Simulation Analyst Cyto stain Nom (Cvx/Vag) [ID] Comment . [facility] Comment on above: Olinda Wagoner ologist (ASCP) Laboratory - Miscellaneous t estsOrdered By: Julianna Lewis on 11-02-2024 Service comment (Unsp spec) [Interp] . . [facility] No Panel InformationOrdered By: Julianna Lewis on 11-02-2024 Pap Smear Specimen Adequacy Comment . [facility] Comment on above: Satisfactory for gisel luation. No endocervical component is identified. Fire Safety Manager Office Visit Reporton 11-02-2024 Fire Safety Manager Office Visit Report [facility] [address], [address] [place] [address] OFFICE VISIT Date of Service: 11/02/24 MR#: [id number] Acct: [id number] Name: QUETA STAUFFER Rep #: [id number] : 1975 Provider: Dr. 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) Roll Skinner Required: No Is patient in pain?: No Allergies nalbuphine (From Nubain) Allergy (Severe, Verified 11/02/24 14:38) NUMBNESS Medications ???Medication ???Instructions ???Recorded ???Confirmed ???Type multivitamin 1 tab PO DAILY 01/25/23 11/02/24 H istory abram extract 500 mg capsule mg PO 11/02/24 11/02/24 History Post menopausal: No Patient : No : No [facility] Medical History Allergic dermatitis COVID COVID toes Herpetic alessio Wears glasses Cancer Arthritis Bruises easily Migraine Dietary lactose intolerance Heartburn during Asthma Non-smoker Hypertension Abnormal mammogram of left breast Surgical History History of lumpectomy ( 09/2022) Hx of breast biopsy Hx of colonoscopy Hx of dilation and curettage Family History Mother Colon cancer, Onset Age: 70 Afib Heart disease Hypertension Hyperlipidemia Father Lewy body dementia Diabetes Hypertension Social History (Updated 11/02/24 @ 14:43 by Keya Mcelroy) adopted: No household members: spouse current occupational status: employed 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 pets and animals: Yes Smoking Status: Never smoker Electronic Cigarette Use: not used alcohol intake: current alcohol intake frequency: holidays/special occasions only substance use type: does not use diet: gluten free, lactose free and other caffeine: No what type of physical activity do you participate in: walking frequency: 1-2 times per week seatbelt use: always do you feel safe at home: Yes additional social history: -Stefan History 6 Elective abortions Hx Para 1 Spontaneous abortions Hx # Term Pregnancies Ectopic pregnancies Hx # Pregnancies Multiple births # of living children Past Pregnancies Del. Date Name GA/Weeks Outcome Route Bth Weight Gen Labor Lgth Anesthesia Del Locatn Provider FOB Unknown Jordan (dec at 16) Delivery Date: Last Updated by: Keya Mcelroy was killed in car accident HPI Encounter for routine gynecological examination Details: The patient is a 48-year-old female presenting with a routine gynecological examination and management of perimenopausal symptoms. She reports experiencing perimenopausal symptoms, including hot flashes and irregular menstrual cycles, which have been ongoing for an unspecified duration. The hot flashes are described as starting with dizziness followed by a sudden feeling of heat, and they occur both during the day and at night, affecting her sleep quality. The patient has a history of breast cancer, for which she is not taking tamoxifen due to Factor V Leiden mutation, which increases her risk of blood clots. She has experienced five miscarriages, which led to the diagnosis of Factor V Leiden mutation. The patient reports weight fluctuations over the past year, with a pattern of losing and gaining weight, maintaining a weight loss of approximately 20 pounds from her highest weight. She attributes her weight management to dietary habits, avoiding dairy, sugar, and wheat, and notes a family history of weight gain at her age. A previous Pap smear showed atypical cells, and a repeat Pap smear is planned for today. Her next mammogram is scheduled for February, and she is under regular follow-up with Dr. Tan every six months. her mother in August last year of colon cancer. Attestation: Documentation on this patient encounter was supported using ambient scribe technology/ voice AI technology. The patient consented to recording for the purpose of documenting the encounter. Provider reviewed content of the generated note prior to signature. Last PAP: 2022- ascus History of abnormal PAP: yes, ascus pap last year Last mammogram: february. follows with Dr. Tan q 6 months History of abnormal mammogram: y (more content not included)... Normal [facility] Radiation Oncology Visiton 0 10-29-2024 Radiation Oncology Visit [facility] [address] [place] [address]. [place] [address] OFFICE VISIT Date of Service: 10/29/24830 MR#: [id number] Acct: [id number] Name: QUETA STAUFFER Rep #: [id number] : 1975 From: Raymundo Tan DO Age/Sex: 48/F [place] [facility] Status: Signed Intake Vital Signs 06/25/24 15:31 07/09/24 08:04 10/29/24 08:36 Height 5 ft 11 in 5 ft 11 in 5 ft 11 in Weight: 186 lb 184 lb BMI 25.9 25.7 BP 134/76 H 114/76 Blood Pressure Location Rt brachial Rt brachial Position Sitting Sitting Respiration 18 16 Pulse 83 64 Pulse Source Monitor Monitor Temp 98.2 F 98.5 F Temperature Source Temporal Artery Pulse Oximetry (%) 99 98 Oxygen Delivery Method room air room air Intake Visit Reasons: 4 MONTH BREAST Is patient in pain?: No Allergies nalbuphine (From Nubain) Allergy (Severe, Verified 10/29/24 08:35) NUMBNESS Medications ???Medication ???Instructions ???Recorded ???Confirmed ???Type multivitamin 1 tab PO DAILY 01/25/23 10/29/24 H istory ipratropium bromide 21 mcg (0.03 2 spray intranasal BID-TID PRN 10/29/24 Rx %) nasal spray postnasal drainage #30 mL PFSH PFSH Medical History Allergic dermatitis COVID COVID toes Herpetic alessio Wears glasses Cancer Arthritis Bruises easily Migraine Dietary lactose intolerance Heartburn during Asthma Non-smoker Hypertension Abnormal mammogram of left breast Home Medications ???Medication ???Instructions ???Recorded ???Last Taken ???Type multivitamin 1 tab PO DAILY 01/25/23 Unknown Hi story ipratropium bromide 21 mcg (0.03 2 spray intranasal BID-TID PRN Unknown Rx %) nasal spray postnasal drainage #30 mL Allergy/AdvReac Type Severity Reaction Status Date / Time nalbuphine (From Nubain) Allergy Severe NUMBNESS Verified 10/29/24 08:35 Family History Mother Colon cancer, Onset Age: 70 Afib Heart disease Hypertension Hyperlipidemia Father Lewy body dementia Diabetes Hypertension Surgical History History of lumpectomy ( 09/2022) Hx of breast biopsy Hx of colonoscopy Hx of dilation and curettage Social History adopted: No household members: spouse current occupational status: employed 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 pets and animals: Yes Smoking Status: Never smoker Electronic Cigarette Use: not used alcohol intake: current alcohol intake frequency: holidays/special occasions only substance use type: does not use diet: gluten free, lactose free and other caffeine: No what type of physical activity do you participate in: none frequency: 3-4 times per week seatbelt use: always do you feel safe at home: Yes additional social history: -Stefan Diagnosis: Queta Stauffer is a 48-year-old female diagnosed with pathologic stage IA (pT1a pN0 (sn) Mx) grade 1 invasive ductal carcinoma (ER > 95%, ID > 95%, HER2 0+ IHC) of the left medial breast status post left breast diagnostic mammogram/ultrasound (09/20/2022), left breast biopsy (09/25/2019), left breast lumpectomy and sentinel lymph node biopsy (10/06/2022), and evaluation by medical oncology (11/02/2022). From 12/06/2022 ??? 12/27/2022 she completed adjuvant radiation to the left breast. History of Present Illness: 09/20/2022: Patient completed left breast diagnostic mammogram.??? This demonstrated a 1.6 Demeter architectural distortion in the left breast at the 11 o'clock position middle depth which is confirmed on spot compression and tomosynthesis views, recommend ultrasound.??? BI-RADS Category 0 09/20/2022: Left breast ultrasound and left axillary ultrasound were performed.??? There is a 7 mm irregular spiculated hypoechoic mass in the left breast at the 11 o'clock position middle depth about 5 cm from the nipple which correlates to the mammographic finding.??? No lymph nodes are noted in the left axilla.??? BI-RADS Category 4 09/24/2022: Patient completed biopsy of the left breast lesion.??? Pathology demonstrated grade 1 invasive ductal carcinoma (ER > 95%, ID > 95%, HER2 0+ IHC) 09/24/2022: Patient completed left breast unilateral diagnostic mammogram which demonstrates that the clip is seen within the upper mid medial aspect of the left breast. 10/06/2022: Patient completed upper inner quadrant left breast lumpectomy and sentinel lymph node biopsy.??? Pathology demonstrated grade 1 invasive ductal carcinoma measuring 0.5 x 0.5 x 0.5 cm, there is associated grade 1 DCIS involving 2/10 blocks, margins are negative with the closest margin being 1 cm, lymph-va (more content not included)... Normal [facility] Calculated very low density lipoprotein (VLDL) cholesterol measurementOrdered By: Chelsi Elkins on 08-10-2024 Calculated very low density lipoprotein (VLDL) cholesterol measurement 14 mg/dL 5-40 [facility] LDL calc ser/plasOrdered By: Chelsi Elkins on 08-10-2024 Cholesterol in LDL [Mass/Vol] 98 mg/dL [facility] Comment on above: Wjzibfdreo=965-987 m g/dL & Higher Tprd=189 mg/dL or greater Lipid Profileon 08-10-2024 CHOL:HDL 2.88 Normal [facility] Comment on above: Performed By: #### L 500.4100 #### [facility] [address] [place], [address] (938) Cholesterol [Mass/Vol] 172 mg/dL Normal <=200 [facility] Comment on above: Result Comment: Chol esterol level, Desirable <200 mg/dL Borderline high cholesterol 200-239 mg/dL High cholesterol >=240 mg/dL Recommendations of the NCEP Adult Treatment Panel for the following risk-cutoff thresholds for the [place] population. Performed By: #### L 500.4100 #### [facility] [address] [facility] [place], [address] (172) Cholesterol in HDL [Mass/Vol] 60 mg/dL Normal [facility] Comment on above: Result Comment: Katarina onal Cholesterol Education Program (NCEP) guidelines: <40 mg/dL: Low HDL-cholesterol (major risk factor for CHD) >= 60 mg/dL: High HDL-cholesterol (negative risk factor for CHD) HDL-cholesterol is affected by a number of factors, e.g. smoking, exercise, hormones, sex and age. Performed By: #### L 500.4100 #### [facility] [address] [facility] [place], [address] (205) Cholesterol in LDL [Mass/Vol] 98 mg/dL Normal [facility] Comment on above: Result Comment: Bord nogptz=263-887 mg/dL Higher Zkhh=986 mg/dL or greater Performed By: #### L 500.4100 #### [facility] [address] [place], [place], [id number] Cholesterol in VLDL [Mass/Vol] 14 mg/dL Normal 5-40 [facility] Comment on above: Performed By: #### L 500.4100 #### [facility] [address] [place], [place], [id number] Triglyceride [Mass/Vol] 69 mg/dL Normal [facility] Comment on above: Result Comment: The drugs N-Acetylcysteine and Metamizole may falsely depress this assay. Normal range: <150 mg/dL Borderline High: 150-199 mg/dL High: 200-499 mg/dL Very High: >500 mg/dL Performed By: #### L 500.4100 #### [facility] [address] [place], [place], [id number] Screening total cholesterol/ high density lipoprotein (HDL) cholesterol ratioOrdered By: Chelsi Elkins on 08-10-2024 Cholesterol.total/Cho lesterol in HDL [Mass ratio] 2.88 {ratio} [facility] Serum or plasma cholesterol in HDL measurement (mass/volume)Ordered By: Chelsi Elkins on 08-10-2024 Cholesterol in HDL [Mass/Vol] 60 mg/dL >40 [facility] Comment on above: National Cholesterol Education Program (NCEP) guidelines:<40 mg/dL: Low HDL-cholesterol (major risk factor for CHD)>= 60 mg/dL: High HDL-cholesterol (negative risk factor for CHD)HDL-cholesterol is affected by a number of factors, e.g. smoking, exercise, hormones, sex and age. Serum or plasma cholesterol measurement (mass/volume)Ordered By: Chelsi Elkins on 08-10-2024 Cholesterol [Mass/Vol] 172 mg/dL <201 [facility] Comment on above: Cholesterol level, D esirable <200 mg/dLBorderline high cholesterol 200-239 mg/dLHigh cholesterol >=240 mg/dLRecommendations of the NCEP Adult Treatment Panel for the following risk-cutoff thresholds for the [place] population. Triglycerides measurementOrd ered By: Chelsi Elkins on 08-10-2024 Triglyceride [Mass/Vol] 69 mg/dL <199 [facility] Comment on above: The drugs N-Acetylcy steine and Metamizole may falsely depress this assay. Normal range: <150 mg/dLBorderline High: 150-199 mg/dLHigh: 200-499 mg/dLVery High: >500 mg/dL Urgent Care Visit Reporton 0 07-06-2024 Urgent Care Visit Report [facility] [address], [address] [place] [address] OFFICE VISIT Date of Service: 07/06/24 MR#: [id number] Acct: [id number] Name: QUETA STAUFFER Rep #: [id number] : 1975 Provider: MARICARMEN Basurto Age/Sex: 48/F [place] [facility] Status: Signed Intake Vital Signs 06/25/24 15:31 07/06/24 16:17 Height 5 ft 11 in Weight: 185 lb 2 oz BMI 25.8 BP 131/85 H 112/70 Blood Pressure Location Rt brachial Rt brachial Position Sitting Sitting Respiration 16 14 Pulse 68 71 Pulse Source Monitor NIBP Temp 97.5 F L 98.3 F Temp Source Oral Pulse Oximetry (%) 98 96 Oxygen Delivery Method room air room air Intake Visit Reasons: COUGH, CONGESTION Chief Complaint: cough, congestion Roll Skinner Required: No Allergies nalbuphine (From Nubain) Allergy (Severe, Verified 07/06/24 16:17) NUMBNESS Is last menstrual period known: No Post menopausal: No Patient : No Have you fallen in the past year?: No Nurse's Note: cough, congestion x 5 days. hx allergies but meds not working. denies all other s/s. states I feel great other than this [facility] Medical History Allergic dermatitis COVID COVID toes Herpetic alessio Wears glasses Cancer Arthritis Bruises easily Migraine Dietary lactose intolerance Heartburn during Asthma Non-smoker Hypertension Abnormal mammogram of left breast Surgical History History of lumpectomy ( 09/2022) Hx of breast biopsy Hx of colonoscopy Hx of dilation and curettage Family History Mother Colon cancer, Onset Age: 70 Afib Heart disease Hypertension Hyperlipidemia Father Lewy body dementia Diabetes Hypertension Social History adopted: No household members: spouse current occupational status: employed 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 pets and animals: Yes Smoking Status: Never smoker Electronic Cigarette Use: not used alcohol intake: current alcohol intake frequency: holidays/special occasions only substance use type: does not use diet: gluten free, lactose free and other caffeine: No what type of physical activity do you participate in: none frequency: 3-4 times per week seatbelt use: always do you feel safe at home: Yes additional social history: -Stefan HPI HPI Chief Complaint: cough, congestion Details: QUETA STAUFFER, is a 48 F who presents to the office today for complaint of cough, congestion and sinus pressure worsening over the past 4 to 5 days. Patient does state that she is concerned for possible sinus infection and is concerned as she is flying out of the state next week. She denies fever, chills, sweats. No cough, shortness of breath or difficulty breathing. No loss of taste or smell. No other associated symptoms or alleviating/aggravating factors. ROS Const Constitutional: No other (As above) Exam Const General: cooperative and healthy appearing [facility] Head: normal to inspection Ears: hearing grossly normal bilaterally, TM's normal bilaterally and EAC's normal Nose: nasal discharge purulent Face and sinus: sinus tenderness frontal and maxillary Mouth: oral mucosae normal Throat: abnormal tonsil bilaterally erythema and hypertrophy 1+ and postnasal drainage Resp Effort Inspection: normal respiratory effort Auscultation: Bilateral: Clear to Auscultation Cardio Palpation: normal PMI Rate: regular rate Rhythm: regular rhythm Neuro General: patient alert and CN's II-XI intact bilaterally Psych Appearance: grossly normal Mental Status: mental status grossly normal Coding Level of Care Code Off vis,new,level 3 Diagnoses Acute sinusitis J01.90 Assessment and Plan Assessment and Plan (1) Acute sinusitis: Status: Acute Medications: New amoxicillin-pot clavulanate 875-125 mg 1 TAB PO Q12H 20 tabs 0RF 10 days J01.90 - Acute sinusitis, unspecified methylprednisolone (Medrol (Mt)) 4 mg PO PER PKG DIR 21 tabs 0RF 6 days ipratropium bromide administer into each nostril 2 sprays intranasal BID-TID PRN 30 mL 0RF postnasal drainage Plan Augmentin, Medrol Dosepak and Atrovent as prescribed today. Encouraged to get plenty of rest, drink lots of clear liquids, and use Tylenol or Ibuprofen (unless contraindicated) for fever and comfort. Patient also educated on other symptomatic management techniques. To be seen in 7-10 days if no improvement; sooner if worsening of symptoms. Patient advised of potential red flags and when appropriate to report to the ED. Patient verbalized understanding and agreement with all the above. Clinical Quality Rosa (more content not included)... Normal [facility] Internal Medicine Office Vis iton 07-05-2024 Internal Medicine Office Visit [facility] [place], [place] [address] OFFICE VISIT Date of Service: 07/09/24 MR#: [id number] Acct: [id number] Name: QUETA STAUFFER Rep #: [id number] : 1975 Provider: Dr. Chelsi field MD Age/Sex: 48/F [place] [facility] Status: Signed Intake Vital Signs 07/05/23 07:55 06/25/24 15:31 07/09/24 08:04 Height 5 ft 11 in 5 ft 11 in 5 ft 11 in Weight: 186 lb BMI 25.9 BP 134/76 H Blood Pressure Location Rt brachial Position Sitting Respiration 18 Pulse 83 Pulse Source Monitor Temp 98.2 F Temp Source Temporal Pulse Oximetry (%) 99 Oxygen Delivery Method room air Intake Visit Reasons: 1 Y FU Chief Complaint: 1 Y FU Is patient in pain?: No Allergies nalbuphine (From Nubain) Allergy (Severe, Verified 07/09/24 08:05) NUMBNESS Medications ???Medication ???Instructions ???Recorded ???Confirmed ???Type multivitamin 1 tab PO DAILY 01/25/23 07/09/24 H istory amoxicillin 875 mg-potassium 1 tab PO Q12H 10 days #20 tabs 07/09/24 Rx clavulanate 125 mg tablet ipratropium bromide 21 mcg (0.03 2 spray intranasal BID-TID PRN 07/09/24 Rx %) nasal spray postnasal drainage #30 mL methylprednisolone 4 mg tablets in 4 mg PO PER PKG DIR 6 days #21 t abs 07/06/24 07/09/24 Rx a dose pack (Medrol (Mt)) Have you fallen in the past year?: No Nurse's Note: pt reports she [facility] last week for allergies that turned into an infection states that she is currently on antibiotics and steroids. states that she is feeling improved from last week. [facility] Medical History (Updated 07/09/24 @ 09:[address] Chelsi Elkins MD) Allergic dermatitis COVID COVID toes Herpetic alessio Wears glasses Cancer Arthritis Bruises easily Migraine Dietary lactose intolerance Heartburn during Asthma Non-smoker Hypertension Abnormal mammogram of left breast Surgical History History of lumpectomy ( 09/2022) Hx of breast biopsy Hx of colonoscopy Hx of dilation and curettage Family History Mother Colon cancer, Onset Age: 70 Afib Heart disease Hypertension Hyperlipidemia Father Lewy body dementia Diabetes Hypertension Social History (Updated 07/09/24 @ 08:[address] 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 1. Little interest or pleasure in doing things: not at all 2. Feeling down, depressed, or hopeless: several days 3. Trouble falling or staying asleep, or sleeping too much: not at all 4. Feeling tired or having little energy: not at all 5. Poor appetite or overeating: several days 6. Feeling bad about yourself - or that you are a failure or have let yourself and your family down: not at all 7. Trouble concentrating on things, such as reading the newspaper or watching television: not at all 8. Moving or speaking so slowly that other people could have noticed? - Or the opposite - being so fidgety or restless that you have been moving around a lot more than usual: several days 9. Thoughts that you would be better off or of hurting yourself in some way: not at all Total score: 3 If you checked off any problems, how difficult have these problems made it for you to do your work, take care of things at home, or get along with other people?: not difficult at all Source: Developed by Drs. Kady Schneider, Awa Randle, Chaparro Calvo and colleagues, with an educational miguel from [employer]. HPI HPI Chief Complaint: 1 Y FU Details: QUETA STAUFFER, is a 48 F who presents to the office today for an annual visit. She is due for some routine blood work and is up to date on her screening. She is due for a pneumonia vaccine. She doesn't smoke and doesn't take any prescription medications. She reports she is eating healthy and staying active. The patient has a history of left sided breast cancer s/p lumpectomy (September 2022) and radiation. She was diagnosed last summer. She follows closely with radiation oncology and oncology. She reports that every (more content not included)... Normal [facility] Radiation Oncology Visiton 0 06-25-2024 Radiation Oncology Visit [facility] [place] [address] [place] [address] OFFICE VISIT Date of Service: 06/25/24 1529 MR#: [id number] Acct: [id number] Name: QUETA STAUFFER Rep #: [id number] : 1975 From: Raymundo Tan DO Age/Sex: 48/F [place] [facility] Status: Signed Intake Vital Signs 01/23/24 15:36 06/25/24 15:31 Height 5 ft 11 in 5 ft 11 in Weight: 185 lb 2 oz BMI 25.8 BP 131/85 H Blood Pressure Location Rt brachial Position Sitting Respiration 16 Pulse 68 Pulse Source Monitor Temp 97.5 F L Temperature Source Temporal Artery Pulse Oximetry (%) 98 Oxygen Delivery Method room air Intake Visit Reasons: 6 month follow up breast Is patient in pain?: No Allergies nalbuphine (From Nubain) Allergy (Severe, Verified 06/25/24 15:32) NUMBNESS Medications ???Medication ???Instructions ???Recorded ???Confirmed ???Type multivitamin 1 tab PO DAILY 01/25/23 06/25/24 H istory PFSH PFSH Medical History Allergic dermatitis COVID COVID toes Herpetic alessio Wears glasses Cancer Arthritis Bruises easily Migraine Dietary lactose intolerance Heartburn during Asthma Non-smoker Hypertension Abnormal mammogram of left breast Home Medications ???Medication ???Instructions ???Recorded ???Last Taken ???Type multivitamin 1 tab PO DAILY 01/25/23 Unknown Hi story Allergy/AdvReac Type Severity Reaction Status Date / Time nalbuphine (From Nubain) Allergy Severe NUMBNESS Verified 06/25/24 15:32 Family History Mother Colon cancer, Onset Age: 70 Afib Heart disease Hypertension Hyperlipidemia Father Lewy body dementia Diabetes Hypertension Surgical History History of lumpectomy ( 09/2022) Hx of breast biopsy Hx of colonoscopy Hx of dilation and curettage Social History adopted: No household members: spouse current occupational status: employed 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 pets and animals: Yes Smoking Status: Never smoker Electronic Cigarette Use: not used alcohol intake: current alcohol intake frequency: holidays/special occasions only substance use type: does not use diet: gluten free, lactose free and other caffeine: No what type of physical activity do you participate in: none frequency: 3-4 times per week seatbelt use: always do you feel safe at home: Yes additional social history: -Stefan Diagnosis: Queta Stauffer is a 48-year-old female diagnosed with pathologic stage IA (pT1a pN0 (sn) Mx) grade 1 invasive ductal carcinoma (ER > 95%, ID > 95%, HER2 0+ IHC) of the left medial breast status post left breast diagnostic mammogram/ultrasound (09/20/2022), left breast biopsy (09/25/2019), left breast lumpectomy and sentinel lymph node biopsy (10/06/2022), and evaluation by medical oncology (11/02/2022). From 12/06/2022 ??? 12/27/2022 she completed adjuvant radiation to the left breast. History of Present Illness: 09/20/2022: Patient completed left breast diagnostic mammogram.??? This demonstrated a 1.6 Demeter architectural distortion in the left breast at the 11 o'clock position middle depth which is confirmed on spot compression and tomosynthesis views, recommend ultrasound.??? BI-RADS Category 0 09/20/2022: Left breast ultrasound and left axillary ultrasound were performed.??? There is a 7 mm irregular spiculated hypoechoic mass in the left breast at the 11 o'clock position middle depth about 5 cm from the nipple which correlates to the mammographic finding.??? No lymph nodes are noted in the left axilla.??? BI-RADS Category 4 09/24/2022: Patient completed biopsy of the left breast lesion.??? Pathology demonstrated grade 1 invasive ductal carcinoma (ER > 95%, ID > 95%, HER2 0+ IHC) 09/24/2022: Patient completed left breast unilateral diagnostic mammogram which demonstrates that the clip is seen within the upper mid medial aspect of the left breast. 10/06/2022: Patient completed upper inner quadrant left breast lumpectomy and sentinel lymph node biopsy.??? Pathology demonstrated grade 1 invasive ductal carcinoma measuring 0.5 x 0.5 x 0.5 cm, there is associated grade 1 DCIS involving 2/10 blocks, margins are negative with the closest margin being 1 cm, lymph-vascular invasion is not identified, 7 lymph nodes were obtained and none contained metastatic disease. 11/02/2022: Patient was evaluated by medical oncology.??? Oncotype DX score was ordered and found to be 6. From 12/06/2022 ??? 12/27/2022: received adjuvant radiation therapy consisting of 4000 cGy delivered to the left whole breast with a simultaneous boost (more content not included)... Normal [facility] SCRN MAMM (CAD)W/EARNEST BILATo n 03-02-2024 SCRN MAMM (CAD)W/EARNEST BILAT [facility] Imaging Services [address] [place] [address] SCRN MAMM (CAD)W/EARNEST BILAT MR#: [id number] Acct: [id number] Name: QUETA STAUFFER Rep #: [id number] : 1975 F 48 From: Reginald sy MD PCP: Dr. Chelsi Elkins MD Status: [facility] Study: SCRN MAMM (CAD)W/EARNEST BILAT Date of Exam: 02/12 Exam# [id number] Ordering Dr: Raymundo Tan DO [id number] MAMMOGRAPHY - BILATERAL SCREENING REASON FOR EXAM: Female, 48 years old. Routine annual screening examination. PERTINENT HISTORY: Personal history of breast cancer. Prior left lumpectomy with radiation therapy. TECHNIQUE: Digital bilateral breast earnest (3D mammographic acquisition) in the CC and MLO projections. 2-D mediolateral oblique (MLO) and craniocaudad (CC) views of both breasts were obtained. CAD: Full Field Digital Mammography with Computer Added Detection was performed. COMPARISON: Comparison is made with prior study dated February 28, 2023 and October 06, 2022. FINDINGS: Breast Composition: The breasts are heterogeneously dense, which may obscure small masses. There are no dominant masses or suspicious calcifications. Once again, the patient is status post lumpectomy in the deep upper medial aspect of the left breast with resultant postoperative deformity. Surgical clips are also seen in the left axilla. No other significant abnormalities are identified. There has been no significant change since the prior study. BI/SCRN MAMM (CAD)W/EARNEST BILAT IMPRESSION: Stable bilateral screening mammogram. Yearly follow-up mammogram recommended. (A) ASSESSMENT CATEGORY: BIRADS Category 2: Benign. A letter regarding these results will be sent to the patient by the facility within 30 days. Approximately 10% of breast cancers are not detected by mammography. A normal mammogram should not delay biopsy of a clinically suspicious abnormality. [id number] Electronically Signed: Reginald Underwood MD at 8:44 EST Reading Location ID and State: [address] [place] [address] , Service support , CC: Dr. Chelsi Elkins MD; Dr. Raymundo Tan DO Obiee Report Developer: Signed Normal [facility] Radiation Oncology Visiton 1 03-24-2023 Radiation Oncology Visit [facility] [address] [place] [address] OFFICE VISIT Date of Service: 01/23/24 1528 MR#: [id number] Acct: [id number] Name: QUETA STAUFFER DIOR Rep #: [id number] : 1975 From: Raymundo Tan DO Age/Sex: 48/F Location: [facility] Status: Signed Intake Vital Signs 05/31/23 15:34 01/16/24 16:07 01/23/24 15:31 01/23/24 15:36 Height 5 ft 11 in 5 ft 11 in 5 ft 11 in 5 ft 11 in Weight: 176 lb BMI 24.5 BP 122/78 H Blood Pressure Location Rt brachial Position Sitting Respiration 18 Pulse 75 Pulse Source Monitor Temp 97.3 F L Temperature Source Temporal Artery Pulse Oximetry (%) 100 Oxygen Delivery Method room air Intake Visit Reasons: 8 MONTH F/U BREAST Chief Complaint: F/u for L breast cancer. Is patient in pain?: No Allergies nalbuphine (From Nubain) Allergy (Severe, Verified 01/23/24 15:31) NUMBNESS Medications ???Medication ???Instructions ???Recorded ???Confirmed ???Type multivitamin 1 tab PO DAILY 01/25/23 01/23/24 History betamethasone dipropionate 0.05 % 1 applic topical BID #15 grams 07/27/23 01/23/24 Rx topical ointment PFSH PFSH Medical History Allergic dermatitis COVID COVID toes Herpetic alessio Wears glasses Cancer Arthritis Bruises easily Migraine Dietary lactose intolerance Heartburn during Asthma Non-smoker Hypertension Abnormal mammogram of left breast Home Medications ???Medication ???Instructions ???Recorded ???Last Taken ???Type multivitamin 1 tab PO DAILY 01/25/23 Unknown History betamethasone dipropionate 0.05 % 1 applic topical BID #15 grams 07/27/23 Unknown Rx topical ointment Allergy/AdvReac Type Severity Reaction Status Date / Time nalbuphine (From Nubain) Allergy Severe NUMBNESS Verified 01/23/24 15:31 Family History Mother Colon cancer, Onset Age: 70 Afib Heart disease Hypertension Hyperlipidemia Father Lewy body dementia Diabetes Hypertension Surgical History History of lumpectomy ( 09/2022) Hx of breast biopsy Hx of colonoscopy Hx of dilation and curettage Social History adopted: No household members: spouse current occupational status: employed 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 pets and animals: Yes Smoking Status: Never smoker Electronic Cigarette Use: not used alcohol intake: current alcohol intake frequency: holidays/special occasions only substance use type: does not use diet: gluten free, lactose free and other caffeine: No what type of physical activity do you participate in: none frequency: 3-4 times per week seatbelt use: always do you feel safe at home: Yes additional social history: -Stefan Diagnosis: Queta Stauffer is a 48-year-old female diagnosed with pathologic stage IA (pT1a pN0 (sn) Mx) grade 1 invasive ductal carcinoma (ER > 95%, ID > 95%, HER2 0+ IHC) of the left medial breast status post left breast diagnostic mammogram/ultrasound (09/20/2022), left breast biopsy (09/25/2019), left breast lumpectomy and sentinel lymph node biopsy (10/06/2022), and evaluation by medical oncology (11/02/2022). From 12/06/2022 ??? 12/27/2022 she completed adjuvant radiation to the left breast. History of Present Illness: 09/20/2022: Patient completed left breast diagnostic mammogram.??? This demonstrated a 1.6 Demeter architectural distortion in the left breast at the 11 o'clock position middle depth which is confirmed on spot compression and tomosynthesis views, recommend ultrasound.??? BI-RADS Category 0 09/20/2022: Left breast ultrasound and left axillary ultrasound were performed.??? There is a 7 mm irregular spiculated hypoechoic mass in the left breast at the 11 o'clock position middle depth about 5 cm from the nipple which correlates to the mammographic finding.??? No lymph nodes are noted in the left axilla.??? BI-RADS Category 4 09/24/2022: Patient completed biopsy of the left breast lesion.??? Pathology demonstrated grade 1 invasive ductal carcinoma (ER > 95%, ID > 95%, HER2 0+ IHC) 09/24/2022: Patient completed left breast unilateral diagnostic mammogram which demonstrates that the clip is seen within the upper mid medial aspect of the left breast. 10/06/2022: Patient completed upper inner quadrant left breast lumpectomy and sentinel lymph node biopsy.??? Pathology demonstrated grade 1 invasive ductal carcinoma measuring 0.5 x 0.5 x 0.5 cm, there is associated grade 1 DCIS involving 2/10 blocks, margins are negative with the closest margin being 1 cm, lymph-vascular invasion is not identified, 7 lymph nodes we (more content not included)... Normal [facility] Bacteria identified Cx Nom ( Wound)on 04-04-2023 Wound Culture Klebsiella aerogenes W [facility] Gram stain for investigation of transfusion reactionon 04-04-2023 Microscopic observation Gram stain Nom (Unsp spec) [facility] Laboratory - Microbiology an d Antimicrobial susceptibilityon 03-02-2023 SARS-CoV-2 (COVID-19) RNA CONI+probe Ql (Unsp spec) Detected [facility] No Panel Informationon 03-02 Influenza Types A,B Rapid (Clinic) Not detected [facility] Cervical or vagninal specime n microscopic examination by cytology stain (reported asOrdered By: Julianna Lewis on 02-25-2023 Cytology report Cyto stain Doc (Cvx/Vag) Comment . [facility] Comment on above: The Pap smear is a s creening test designed to aid in thedetection of premalignant and malignant conditions of theuterine cervix. It is not a diagnostic procedure andshould not be used as the sole means of detecting cervicalcancer. Both false-positive and false-negative reports dooccur. Detection in cervical specim en of any of human papilloma virus (HPV) 16, 18, 31, 33,Ordered By: Julianna Lewis on 02-25-2023 HPV 16+18+31+33+35+39+45+ 51+52+56+58+59+66+68 DNA Probe+sig amp Ql (Cvx) Negative Negative [facility] Comment on above: This nucleic acid am plification test detects fourteen high- risk HPV types (16,18,31,33,35,39,45,51,52,56,58,59,66,68)without differentiation. Laboratory - CytologyOrdered By: Julianna Lewis on 02-25-2023 Simulation Analyst Cyto stain Nom (Cvx/Vag) [ID] Comment . [facility] Comment on above: Olinda Harrison otechnologist (ASCP) Pathologist Cyto stain Nom (Cvx/Vag) [ID] Comment . [facility] Comment on above: Rio Betancourt MD, Pa thologist Recommended follow-up Cyto stain Nom (Cvx/Vag) Comment . [facility] Comment on above: Suggest follow up as clinically appropriate. Laboratory - Miscellaneous t estsOrdered By: Julianna Lewis on 02-25-2023 Service comment (Unsp spec) [Interp] Comment . [facility] Comment on above: This liquid based Th inPrep(R) pap test was screened withthe use of an image guided system. Service comment (Unsp spec) [Interp] . . [facility] Liquid-based cerv Pap + CT/G C by CONI w reflex to high-risk HPV for ASCUSOrdered By: Julianna Lewis on 02-25-2023 Cytology report Cyto stain.thin prep Doc (Cvx/Vag) Comment . [facility] Comment on above: Criteria not met, HP V Genotype not performed.Performed at: [facility] [id number] Director: Carmen Glass MD, Phone: [phone] at: [facility] [id number] [place], [place] [id number] Director: Tan García MD, Phone: [phone] at: =[facility] - [facility] [id number] Director: Carmen Glass MD, Phone: [phone] No Panel InformationOrdered By: Julianna Lewis on 02-25-2023 Pathology report final diagnosis Narrative Comment . [facility] Comment on above: EPITHELIAL CELL ABNO RMALITY.ATYPICAL SQUAMOUS CELLS OF UNDETERMINED SIGNIFICANCE (ASC-US).ENDOMETRIAL CELLS ARE PRESENT IN A WOMAN >= 45 YEARS OF AGE. THE SHEDDINGOF ENDOMETRIAL CELLS IN LIBORIO-POST MENOPAUSAL WOMEN MAY REPRESENT BENIGNENDOMETRIAL LESIONS, HORMONAL ALTERATIONS OR UNCOMMONLY, ENDOMETRIALABNORMALITIES. R87.610 No Panel InformationOrdered By: Raymundo Tan on 02-01-2023 Miscellaneous Test Comment MAILED SPECIMEN [facility] Absolute lymphocyte countOrd ered By: John Jenkins on 11-01-2022 Lymphocytes Auto (Unsp spec) [#/Vol] 2.02 10*3/uL 0.83-4.51 [facility] Basophil percentageOrdered B y: John Jenkins on 11-01-2022 Basophils/100 WBC (Bld) 0.5 % 0-1 [facility] Bilirubin [Mass/Vol] 0.60 mg/dL 0.20-1.00 [facility] Comment on above: For patients on eltr ombopag therapy, use of Dimension [place] TBIL is not recommended. Chloride [Moles/Vol] 111 mmol/L 98-107 [facility] Eosinophils/100 WBC (Bld) 1.6 % 0-5 [facility] Glucose [Mass/Vol] 98 mg/dL 74-106 [facility] [facility] [Catalytic activity/Vol] 147 U/L 84-246 [facility] Neutrophils (Bld) [#/Vol] 5.1 10*3/uL 2.0-7.7 [facility] Neutrophils/100 WBC (Bld) 64.5 % 47-70 [facility] Potassium [Moles/Vol] 3.7 mmol/L 3.5-5.1 [facility] Protein [Mass/Vol] 7.1 g/dL 6.4-8.2 [facility] Sodium [Moles/Vol] 139 mmol/L 136-145 [facility] WBC (Bld) [#/Vol] 8.0 10*3/uL 4.4-11.0 [facility] Blood erythrocytes count (nu mber/volume)Ordered By: John Jenkins on 11-01-2022 RBC (Bld) [#/Vol] 4.41 10*6/uL 4.2-5.4 [facility] Blood hemoglobin measurement (mass/volume)Ordered By: John Jenkins on 11-01-2022 Hemoglobin (Bld) [Mass/Vol] 13.7 g/dL 12.0-15.0 [facility] Blood lymphocytes/100 leukoc ytesOrdered By: John Jenkins on 11-01-2022 Lymphocytes/100 WBC (Bld) 25.3 % 19-41 [facility] Blood monocytes/100 leukocyt esOrdered By: John Jenkins on 11-01-2022 Monocytes/100 WBC (Bld) 7.7 % 0-10 [facility] Blood platelet mean volumeOr dered By: John Jenkins on 11-01-2022 Platelet mean volume (Bld) [Entitic vol] 11.7 fL 6.2-12.0 [facility] Determination of erythrocyte mean corpuscular volume (MCV)Ordered By: John Jenkins on 11-01-2022 MCV (RBC) [Entitic vol] 94.8 fL 81-99 [facility] Hematocrit Auto (Bld) [Volum e fraction]Ordered By: John Jenkins on 11-01-2022 Hematocrit (Bld) [Volume fraction] 41.8 % 37-47 [facility] INR in Blood by Coagulation assayOrdered By: John Jenkins on 11-01-2022 INR Coag (Bld) [Relative time] 1.0 {INR} [facility] Laboratory - Chemistry and C hemistry - challengeOrdered By: John Jenkins on 11-01-2022 ALP [Catalytic activity/Vol] 65 U/L 45-117 [facility] ALT [Catalytic activity/Vol] 19 U/L 13-56 [facility] CO2 [Moles/Vol] 25.0 mmol/L 21.0-32.0 [facility] Globulin (S) [Mass/Vol] 3.4 g/dL 2.2-4.2 [facility] Urea nitrogen/Creatinine [Mass ratio] 17.0 mg/mg 10-20 [facility] Laboratory - CoagulationOrde red By: John Jenkins on 11-01-2022 aPTT Coag (Bld) [Time] 32.1 s 24.1-36.2 [facility] PT Coag (PPP) [Time] 12.9 s 11.7-14.9 [facility] Laboratory - Hematology and Cell countsOrdered By: John Jenkins on 11-01-2022 Erythrocyte distribution width (RBC) [Entitic vol] 45.3 fL 35.1-43.9 [facility] Erythrocyte distribution width (RBC) [Ratio] 13.1 % 11.6-14.6 [facility] Immature granulocytes/100 WBC (Bld) 0.400 % 0.0-0.9 [facility] Comment on above: IG% - Immature Granu locytes (promyelocytes, myelocytes and metamyelocytes) > 1% indicates that a LEFT SHIFT is Present. MCH (RBC) [Entitic mass] 31.1 pg 27.0-32.0 [facility] Nucleated RBC/100 WBC (Bld) [Ratio] 0 % 0-5 [facility] MCHC Auto (RBC) [Mass/Vol]Or dered By: John Jenkins on 11-01-2022 MCHC (RBC) [Mass/Vol] 32.8 g/dL 32-36 [facility] No Panel InformationOrdered By: John Jenkins on 11-01-2022 Activated Protein C Resistance 1.9 ratio 2.2-3.5 [facility] Comment on above: A low activated prot ein C resistance (APCR) is a riskfactor for venous thrombosis and is a screen for the FactorV Leiden mutation. Consider molecular analysis for thismutation. Other causes for abnormal APCR are uncommon andinclude other rare mutations in the Factor V molecule, and certain drug therapies, including thalidomidetherapy, presence of a lupus anticoagulant, increasedFactor VIII levels, and autoantibodies against activatedprotein C.More than 95% of cases of activated protein C resistance(APCR result less than 2.0) are due to the factor V Leidenmutation. However, genetic testing for the factor V Leidenmutation analysis is required to confirm the diagnosis.Performed at: [facility] [id number] Director: Akira Gonzalez MD, Phone: [phone] Miscellaneous Test See comment [facility] Comment on above: TEST RESULTS LIMITST hrombotic Risk Profile IHomocyst(e)ine 8.0 umol/L 0.0-14.5Plasminogen 109 % 70-150Antithrombin Activity 122 % 75-135Direct Xa inhibitor anticoagulants such as rivaroxaban, apixaban and edoxaban will lead to spuriously elevated antithrombin activity levels possibly masking a deficiency.Protein C-Functional 107 % 73-180Protein S, Free 89 % 61-136Consider molecular analysis for this mutation. Other causes forabnormal APCR are uncommon and include other rare mutations in the Factor V molecule, and certain drug therapies, including thalidomide therapy, presence of a lupus anticoagulant, increased Factor VIII levels, and autoantibodies against activated protein C.Factor V Leiden AbnormalResult: c.1601G>A (p.[id number]) - Detected, HeterozygousThis result is associated with a 6- to 8-fold increased risk forvenous thromboembolism. See Additional Clinical Information andComments.Comment Additional Clinical Information:Venous thromboembolism is a multifactorial disease influenced bygenetic, environmental, and circumstantial risk factors. The c.1601G>A (p. [id number]) variant in the F5 gene, commonly referred to as Factor V Leiden, is a genetic risk factor for venous thromboembolism.Heterozygous carriers of this variant have a 6- to 8-fold increased risk for venous thromboembolism. Individuals homozygous for this variant (ie, with a copy of the variant on each chromosome) have an approximately 80-fold increased risk for venous thromboembolism.Individuals who carry both a c.*97G>A variant in the F2 gene andFactor V Leiden have an approximately 20-fold increased risk forvenous thromboembolism. Risks are likely to be even higher in more complex genotype combinations involving the F2 c.*97G>A variant and Factor V Leiden (PMID: 47683567). Additional risk factors include but are not limited to: deficiency of protein C, protein S, or antithrombin III, age, male sex, personal or family history of deep vein thromboembolism, smoking, surgery, prolonged immobilization, malignant neoplasm, tamoxifen treatment, raloxifene treatment, oral contraceptive use, hormone replacement therapy, and .Management of thrombotic risk and thrombotic events should follow established guidelines and fit the clinical circumstance. This result cannot predict the occurrence or recurrence of a thrombotic event.Comment:Genetic counseling is recommended to discuss the potential clinical implications of positive results, as well as recommendations for testing family members.Genetic Coordinators are available for health care providers todiscuss results at [phone]).Test Details:Variant Analyzed: c.1601G>A (p. Fai092Sca), referred to as Factor V LeidenMethods/Limitations:DNA analysis of the F5 gene (NM_000130.5) was performed by PCRamplification followed by restriction enzyme analysis. The diagnostic sensitivity is >99%. Results must be combined with clinical information for the most accurate interpretation. Molecular-based testing is highly accurate, but as in any laboratory test, diagnostic errors may occur. False positive or false negative results may occur for reasons that include genetic variants, blood transfusions, bone marrow transplantation, somatic or tissue-specific mosaicism,mislabeled samples, or erroneous representation of familyrelationships.This test was developed and its performance characteristicsdetermined by [employer]. It has not been cleared or approved by the Food and Drug Administration.References:Elisha S, Yarelis AK, Chencho R, Minda WW, Milind KNIGHT; [facility] Professional Practice and Guidelines Committee. Addendum: [employer] consensus statement on factor V Leiden mutation testing. [employer]. 2020May 16. doi: 10.1038/f81867-168-04643-b. PMID: 51210868.Amber HENSON. Factor V Leiden Thrombophilia. 1998July 25(Updated 2017Mar 17). In: Heber MP, Vida HH, Cinthya RA, et al., editors. Joyce(Dejuan) (Internet). [place] ([place]): [facility]; 3568-7508. Available from:https://www.ncbi.nlm.nih.gov/books/TMT8680/ Loy S, Yarelis AK, Oleg X, Mian B, Kyler EB, Leeanne P, Courtney CS;[facility] Laboratory Parking Meter Servicer Committee. Venous thromboembolism laboratory testing (factor V Leiden and factor II c.*97G>A), 2018 update: a technical standard of the [employer] and [employer] ([facility]). [employer]. 2018 Feb;20(12):8379-6996.doi: 10.1038/q97690-946-2341-k. Epub 2017Dec 16. PMID: 70605935. Reviewed by: 03 Rohini Renae,PhDLupus Anticoagulant Reflex PTT-LA 38.7 sec 0.0-43.5dRVVT 36.4 sec 0.0-47.0Lupus Reflex Interpretation Comment:No lupus anticoagulant was detected.Dilute ProthrombinTime(dPT) 41.4 sec 0.0-47.6dPT Confirm Ratio 1.12 Ratio 0.00-1.34Anticardiolipin Ab,IgG,Qn <9 GPL U/mL 0-14 Negative: <15 Indeterminate: 15 - 20 Low-Med Positive: >20 - 80 High Positive: >80Anticardiolipin Ab,IgM,Qn <9 MPL U/mL 0-12 Negative: <13 Indeterminate: 13 - 20 Low-Med Positive: >20 - 80 High Positive: >80Beta-2 Glycoprotein I Ab, IgG <9 GPI IgG units 0-20Pleas (more content not included)... Estimated GFR (MDRD) Amer 96 mL/min >60 [facility] Comment on above: GFR Calc Estimated GFR (MDRD) Non-Af Amer 80 mL/min >60 [facility] Comment on above: Non- GFR Calc Platelets bldOrdered By: Jimmy Jenkins on 11-01-2022 Platelets (Bld) [#/Vol] 216 10*3/uL 150-450 [facility] Serum or plasma albumin rosa urement (mass/volume)Ordered By: John Jenkins on 11-01-2022 Albumin [Mass/Vol] 3.7 g/dL 3.2-5.0 [facility] Serum or plasma albumin/glob ulin mass ratioOrdered By: John Jenkins on 11-01-2022 Albumin/Globulin [Mass ratio] 1.1 {ratio} 0.9-2.4 [facility] Serum or plasma calcium rosa urement (mass/volume)Ordered By: John Jenkins on 11-01-2022 Calcium [Mass/Vol] 8.9 mg/dL 8.5-10.1 [facility] Serum or plasma creatinine m easurement (mass/volume)Ordered By: John Jenkins on 11-01-2022 Creatinine [Mass/Vol] 0.82 mg/dL 0.55-1.02 [facility] Comment on above: The validity of the calculated GFR & GFRAA in patients over 70 years has not been determined. Clinical correlation is essential. Serum or plasma urea nitroge n measurement (mass/volume)Ordered By: John Jenkins on 11-01-2022 Urea nitrogen [Mass/Vol] 14 mg/dL 7-18 [facility] Thin prep Papanicolaou smear with manual screeningOrdered By: John Jenkins on 11-01-2022 Thin prep Papanicolaou smear with manual screening 9 U/L 15-37 [facility] Thin prep Papanicolaou smear with manual screening 3 5-15 [facility] Laboratory - Chemistry and C hemistry - challengeOrdered By: Octavio Giles on 10-06-2022 HCG ( test) Ql (U) Negative [facility] Comment on above: Very dilute urine sp ecimens, as indicated by a low specificgravity, may not contain patient portal representative levels of hCG. If is still suspected, a first morning urinespecimen should be collected 48 hours later and tested. Basophil percentageOrdered B y: Kady Byers on 10-04-2022 Bilirubin [Mass/Vol] 0.40 mg/dL 0.20-1.00 [facility] Comment on above: For patients on eltr ombopag therapy, use of Dimension [place] TBIL is not recommended. Chloride [Moles/Vol] 110 mmol/L 98-107 [facility] Glucose [Mass/Vol] 97 mg/dL 74-106 [facility] Potassium [Moles/Vol] 4.0 mmol/L 3.5-5.1 [facility] Protein [Mass/Vol] 7.2 g/dL 6.4-8.2 [facility] Sodium [Moles/Vol] 139 mmol/L 136-145 [facility] WBC (Bld) [#/Vol] 9.6 10*3/uL 4.4-11.0 [facility] Blood erythrocytes count (nu mber/volume)Ordered By: Kady Byers on 10-04-2022 RBC (Bld) [#/Vol] 4.60 10*6/uL 4.2-5.4 [facility] Blood hemoglobin measurement (mass/volume)Ordered By: Kady Byers on 10-04-2022 Hemoglobin (Bld) [Mass/Vol] 14.4 g/dL 12.0-15.0 [facility] Blood platelet mean volumeOr dered By: Kady Byers on 10-04-2022 Platelet mean volume (Bld) [Entitic vol] 11.9 fL 6.2-12.0 [facility] Determination of erythrocyte mean corpuscular volume (MCV)Ordered By: Kady Byers on 10-04-2022 MCV (RBC) [Entitic vol] 95.0 fL 81-99 [facility] Hematocrit Auto (Bld) [Volum e fraction]Ordered By: Kady Byers on 10-04-2022 Hematocrit (Bld) [Volume fraction] 43.7 % 37-47 [facility] Laboratory - Chemistry and C hemistry - challengeOrdered By: Kady Byers on 10-04-2022 ALP [Catalytic activity/Vol] 67 U/L 45-117 [facility] ALT [Catalytic activity/Vol] 16 U/L 13-56 [facility] CO2 [Moles/Vol] 26.0 mmol/L 21.0-32.0 [facility] Globulin (S) [Mass/Vol] 3.7 g/dL 2.2-4.2 [facility] Urea nitrogen/Creatinine [Mass ratio] 11.2 mg/mg 10-20 [facility] Laboratory - Hematology and Cell countsOrdered By: Kady Byers on 10-04-2022 Erythrocyte distribution width (RBC) [Entitic vol] 45.6 fL 35.1-43.9 [facility] Erythrocyte distribution width (RBC) [Ratio] 13.2 % 11.6-14.6 [facility] MCH (RBC) [Entitic mass] 31.3 pg 27.0-32.0 [facility] MCHC Auto (RBC) [Mass/Vol]Or dered By: Kady Byers on 10-04-2022 MCHC (RBC) [Mass/Vol] 33.0 g/dL 32-36 [facility] No Panel InformationOrdered By: Kady Byers on 10-04-2022 Estimated GFR (MDRD) Amer 99 mL/min >60 [facility] Comment on above: GFR Calc Estimated GFR (MDRD) Non-Af Amer 82 mL/min >60 [facility] Comment on above: Non- GFR Calc Platelets bldOrdered By: Konstantin Byers on 10-04-2022 Platelets (Bld) [#/Vol] 252 10*3/uL 150-450 [facility] Serum or plasma albumin rosa urement (mass/volume)Ordered By: Kady Byers on 10-04-2022 Albumin [Mass/Vol] 3.5 g/dL 3.2-5.0 [facility] Serum or plasma albumin/glob ulin mass ratioOrdered By: Kady Byers on 10-04-2022 Albumin/Globulin [Mass ratio] 0.9 {ratio} 0.9-2.4 [facility] Serum or plasma calcium rosa urement (mass/volume)Ordered By: Kady Byers on 10-04-2022 Calcium [Mass/Vol] 9.0 mg/dL 8.5-10.1 [facility] Serum or plasma creatinine m easurement (mass/volume)Ordered By: Kady Byers on 10-04-2022 Creatinine [Mass/Vol] 0.80 mg/dL 0.55-1.02 [facility] Comment on above: The validity of the calculated GFR & GFRAA in patients over 70 years has not been determined. Clinical correlation is essential. Serum or plasma urea nitroge n measurement (mass/volume)Ordered By: Kady Byers on 10-04-2022 Urea nitrogen [Mass/Vol] 9 mg/dL 7-18 [facility] Thin prep Papanicolaou smear with manual screeningOrdered By: Kady Byers on 10-04-2022 Thin prep Papanicolaou smear with manual screening 11 U/L 15-37 [facility] Thin prep Papanicolaou smear with manual screening 3 5-15 [facility] MA MAMMOGRAM DIAGNOSTIC LEFT W/TOMOon 09-20-2022 [place] MAMMOGRAM DIAGNOSTIC LEFT W/EARNEST ORIGINAL FROM: ANDREW [address] [address] PROCEDURE FOR: QUETA STAUFFER [address] [place] [address] [place] [address] Home: PID#: [id number] Exam#: [id number] : 1975 Age: 46 TO: ANGÉLICARyan RAMIREZ APRN [facility] [address] [address] Fax: NO FAX EXAMINATION: DIAGNOSTIC DIGITAL LEFT BREAST MAMMOGRAM WITH TOMOSYNTHESIS, 09/20/2022 9:14 am TECHNIQUE: Diagnostic mammography of the left breast was performed with tomosynthesis. 2D standard and 3D tomosynthesis combination imaging performed through the left breast. Computer aided detection was utilized in the interpretation of this exam. Current study was also evaluated with a Computer Aided Detection (CAD) system. COMPARISON: 09/06/2022, 09/09/2021, 05/26/2021, 06/20/2017 HISTORY: ORDERING SYSTEM PROVIDED HISTORY: Reason for Exam: Abnormal mammogram Architectural distortion left breast 11 o'clock FINDINGS: BREAST DENSITY: Heterogeneously dense There is a 1.6 cm architectural distortion in the left breast at 11 o'clock middle depth. This is confirmed on additional spot compression tomosynthesis views. No other significant masses, calcifications, or other findings. IMPRESSION: The 1.6 cm architectural distortion in the left breast at 11 o'clock appears indeterminate. A left breast ultrasound will be performed today and reported separately. BIRADS: MAMMOGRAM BI-RADS: 0: Needs addl evaluation RECALL: immediate RECALL TYPE: Left US LETTER SENT: Abnormal-Needs additional work up BI-RADS 0 Interpreted by: Juan Luis Block MD Preliminary Report By: Juan Luis Block MD Electronically signed By Juan Luis Block MD Dictated Date: 09/20/2022 9:57:31 AM Prelim Date: 09/20/2022 10:03:01 AM Sign Date: 09/20/2022 10:03:01 AM Ordering Provider: MERISSA WADE CLINICAL: ARCHITECTURAL DISTORTION LEFT BREAST. Traffic Chief: MAYNOR LEBLANC RT,RDMS,RVT,RDCS letter sent: Biopsy Recommended BI-RADS 4 and 5 Ultrasound BI-RADS: 4 Suspicious for malignancy Normal [facility] ([place]) US BREAST LEFT LIMITEDon US BREAST LEFT LIMITED ORIGINAL FROM: [place] [address] PROCEDURE FOR: QUETA STAUFFER [address] [place] [address] [place] [address] Home: PID#: [id number] Exam#: [id number] : 1975 Age: 46 TO: ANGÉLICA RAMIREZ APRN [facility] [address] [facility] [address] [place] [address] Fax: NO FAX EXAMINATION: ULTRASOUND OF THE LEFT BREAST AND AXILLA 09/20/2022 10:04 am TECHNIQUE: Color flow and real-time targeted ultrasound of the left breast 11 o'clock and left axilla were performed. COMPARISON: 09/20/2022, 09/06/2022, 09/09/2021, 05/26/2021, 06/20/2017 HISTORY: ORDERING SYSTEM PROVIDED HISTORY: Reason for Exam: abnormal mammo Architectural distortion left breast 11 o'clock FINDINGS: There is a 7 mm irregular spiculated hypoechoic mass in the left breast at 11 o'clock middle depth 5 cm from the nipple. This correlates with the mammographic finding. There is no vascularity present. Normal lymph nodes are seen in the left axilla. IMPRESSION: The 7 mm irregular mass in the left breast at 11 o'clock appears suspicious for malignancy. An ultrasound guided biopsy is recommended. BIRADS: MAMMOGRAM BI-RADS: 4: Suspicious abnormality RECALL: immediate RECALL TYPE: Biopsy followup LETTER SENT: Biopsy Recommended BI-RADS 4 and 5 Interpreted by: Juan Luis Block MD Preliminary Report By: Juan Luis Block MD Electronically signed By Juan Luis Block MD Dictated Date: 09/20/2022 10:23:17 AM Prelim Date: 09/20/2022 11:29:44 AM Sign Date: 09/20/2022 11:29:44 AM Ordering Provider: ANGÉLICA RAMIREZ CLINICAL: ARCHITECTURAL DISTORTION LEFT BREAST. Traffic Chief: MAYNOR LEBLANC RT,RDMS,RVT,RDCS letter sent: Biopsy Recommended BI-RADS 4 and 5 Ultrasound BI-RADS: 4 Suspicious for malignancy Normal [facility] ([place]) [place] MAMMOGRAM SCREENING BILAT ERAL W/TOMOon 09-15-2022 [place] MAMMOGRAM SCREENING BILATERAL W/EARNEST ORIGINAL FROM: [address] [address] PROCEDURE FOR: QUETA STAUFFER [address] [place] [address] [place] [address] Home: PID#: [id number] Exam#: [id number] : 1975 Age: 46 TO: ANGÉLICA RAMIREZ APRN [facility] [address] [place] [id number] Fax: NO FAX EXAMINATION: SCREENING DIGITAL BILATERAL MAMMOGRAM WITH TOMOSYNTHESIS, 09/06/2022 7:56 am TECHNIQUE: Screening mammography of the bilateral breasts was performed with tomosynthesis. 2D standard and 3D tomosynthesis combination imaging performed through both breasts in the MLO and CC projection. Computer aided detection was utilized in the interpretation of this exam. COMPARISON: September 09, 2021, June 26, 2021, June 20, 2017 HISTORY: Breast cancer screening. FINDINGS: BREAST DENSITY: Heterogeneously dense In the left breast at 11 o'clock middle depth, there is a 1 cm area of architectural distortion. There are no other significant masses, calcifications, or other findings. IMPRESSION: Architectural distortion in the left breast at 1 o'clock middle depth. Additional views with spot compression tomosynthesis views in the MLO and CC projections along with a regular ML are recommended. If a mass is confirmed, an ultrasound will be recommended. We will contact the patient to arrange for the exam. BIRADS: MAMMOGRAM BI-RADS: 0: Needs addl evaluation RECALL: immediate RECALL TYPE: Left mammo + US LETTER SENT: Abnormal-Needs additional work up BI-RADS 0 Interpreted by: Carolyn David Preliminary Report By: Carolyn David Electronically signed By Carolyn David Dictated Date: 09/15/2022 1:20:43 PM Prelim Date: 09/15/2022 1:22:28 PM Sign Date: 09/15/2022 1:22:28 PM Ordering Provider: ANGÉLICA RAMIREZ Traffic Chief: GRACE CA RT(R)(M)(CT) [employer] letter sent: Abnormal-Needs additional work up BI-RADS 0 Mammogram BI-RADS: 0 Indeterminate Normal [facility] ([place]) No Panel Informationon 09-07 Culture Urine 50,000 - 100,000 cfu /ml Multiple bacterial morphotypes present. Probable Contamination. Suggest recollection if clinically indicated. [facility] Work Phone: Basophil percentageOrdered B y: MAHI Ramirez on 06-29-2022 Bilirubin [Mass/Vol] 0.50 mg/dL 0.20-1.00 [facility] Comment on above: For patients on eltr ombopag therapy, use of Dimension [place] TBIL is not recommended. Chloride [Moles/Vol] 109 mmol/L 98-107 [facility] Cholesterol [Mass/Vol] 177 mg/dL <200 [facility] Comment on above: <200 mg/dL Desirable 200-240 mg/dL Borderline >240 mg/dL High Risk Glucose [Mass/Vol] 99 mg/dL 74-106 [facility] Potassium [Moles/Vol] 3.8 mmol/L 3.5-5.1 [facility] Protein [Mass/Vol] 7.0 g/dL 6.4-8.2 [facility] Sodium [Moles/Vol] 138 mmol/L 136-145 [facility] Triglyceride [Mass/Vol] 78 mg/dL <199 [facility] Comment on above: The drugs N-Acetylcy steine and Metamizole may falsely depress this assay.Serum Triglycerides Reference Interval Normal <150 mg/dL Borderline high 150 - 199 mg/dL High 200 - 499 mg/dL Very High > or = 500 mg/dL WBC (Bld) [#/Vol] 8.5 10*3/uL 4.4-11.0 [facility] Blood erythrocytes count (nu mber/volume)Ordered By: MAHI Ramirez on 06-29-2022 RBC (Bld) [#/Vol] 4.47 10*6/uL 4.2-5.4 [facility] Blood hemoglobin measurement (mass/volume)Ordered By: MAHI Ramirez on 06-29-2022 Hemoglobin (Bld) [Mass/Vol] 13.8 g/dL 12.0-15.0 [facility] Blood platelet mean volumeOr dered By: MAHI Ramirez on 06-29-2022 Platelet mean volume (Bld) [Entitic vol] 11.9 fL 6.2-12.0 [facility] Determination of erythrocyte mean corpuscular volume (MCV)Ordered By: MAHI Ramirez on 06-29-2022 MCV (RBC) [Entitic vol] 93.5 fL 81-99 [facility] Hematocrit Auto (Bld) [Volum e fraction]Ordered By: MAHI Ramirez on 06-29-2022 Hematocrit (Bld) [Volume fraction] 41.8 % 37-47 [facility] Laboratory - Chemistry and C hemistry - challengeOrdered By: MAHI Ramirez on 06-29-2022 ALP [Catalytic activity/Vol] 65 U/L 45-117 [facility] ALT [Catalytic activity/Vol] 23 U/L 13-56 [facility] CO2 [Moles/Vol] 26.0 mmol/L 21.0-32.0 [facility] Globulin (S) [Mass/Vol] 3.4 g/dL 2.2-4.2 [facility] Urea nitrogen/Creatinine [Mass ratio] 16.2 mg/mg 10-20 [facility] - Hematology and Cell countsOrdered By: MAHI Ramirez on 06-29-2022 Erythrocyte distribution width (RBC) [Entitic vol] 43.5 fL 35.1-43.9 [facility] Erythrocyte distribution width (RBC) [Ratio] 12.7 % 11.6-14.6 [facility] MCH (RBC) [Entitic mass] 30.9 pg 27.0-32.0 [facility] MCHC Auto (RBC) [Mass/Vol]Or dered By: MAHI Ramirez on 06-29-2022 MCHC (RBC) [Mass/Vol] 33.0 g/dL 32-36 [facility] No Panel InformationOrdered By: MAHI Ramirez on 06-29-2022 Estimated GFR (MDRD) Amer 100 mL/min >60 [facility] Comment on above: GFR Calc Estimated GFR (MDRD) Non-Af Amer 82 mL/min >60 [facility] Comment on above: Non- GFR Calc Thyroid Stimulating Hormone (TSH) 2.24 uIU/mL 0.358-3.74 [facility] Platelets bldOrdered By: MAHI Ramirez on 06-29-2022 Platelets (Bld) [#/Vol] 288 10*3/uL 150-450 [facility] Serum or plasma albumin rosa urement (mass/volume)Ordered By: MAHI Ramirez on 06-29-2022 Albumin [Mass/Vol] 3.6 g/dL 3.2-5.0 [facility] Serum or plasma albumin/glob ulin mass ratioOrdered By: MAHI Ramirez on 06-29-2022 Albumin/Globulin [Mass ratio] 1.1 {ratio} 0.9-2.4 [facility] Serum or plasma calcium rosa urement (mass/volume)Ordered By: MAHI Ramirez on 06-29-2022 Calcium [Mass/Vol] 8.6 mg/dL 8.5-10.1 [facility] Serum or plasma cholesterol in HDL measurement (mass/volume)Ordered By: MAHI Ramirez on 06-29-2022 Cholesterol in HDL [Mass/Vol] 51 mg/dL >40 [facility] Comment on above: The drugs N-Acetylcy steine and Metamizole may falsely depress this assay. Reference Range HDL <40 mg/dL Low HDL Cholesterol HDL >or= 60 mg/dL High HDL Cholesterol Serum or plasma cholesterol in VLDL measurement (mass/volume)Ordered By: MAHI Ramirez on 06-29-2022 Cholesterol in VLDL [Mass/Vol] 16 mg/dL 5-40 [facility] Serum or plasma creatinine m easurement (mass/volume)Ordered By: MAHI Ramirez on 06-29-2022 Creatinine [Mass/Vol] 0.80 mg/dL 0.55-1.02 [facility] Comment on above: The validity of the calculated GFR & GFRAA in patients over 70 years has not been determined. Clinical correlation is essential. Serum or plasma low density lipoprotein (LDL) cholesterol measurement (mass/volume)Ordered By: MAHI Ramirez on 06-29-2022 Cholesterol in LDL [Mass/Vol] 110 mg/dL 0-130 [facility] Serum or plasma urea nitroge n measurement (mass/volume)Ordered By: MAHI Ramirez on 06-29-2022 Urea nitrogen [Mass/Vol] 13 mg/dL 7-18 [facility] Thin prep Papanicolaou smear with manual screeningOrdered By: MAHI Ramirez on 06-29-2022 Thin prep Papanicolaou smear with manual screening 11 U/L 15-37 [facility] Thin prep Papanicolaou smear with manual screening 3 5-15 [facility] CNOVon 04-14-2022 CNOV Office Visit ([facility] ) -- QUETA STAUFFER ([id number]) 1975 F Date Time Provider Department 04/14/22 11:45 AM LEONID CH [facility] During your visit today, we recorded the following information about you: Temperature Pulse Respiration Blood pressure 97.8 degrees 73/minute 16/minute 132/82 Weight 92.1 kg Leonid hC MD 04/14/2022 12:32 PM Signed Patient presents with: left index finger pain: X 2 months HPI: Skin Lesion: Location: left index finger pad Duration: noticed while after getting cactus needles in the finger about 2 months ago Pruritis/Pain: tender, sharp pain with pressure Change: NO Drainage/blister/pustule/u lceration: red with callus, no drainage, no fevers/chills/malaise Treatment: epsom soak, peroxide, antibiotic ointment, picked at. Not much treatment recently. MEDICATIONS: No prescriptions on file. ALLERGIES: ALLERGIES Allergen Reactions Seasonal Allergies Intolerance VITALS: BP 132/82 Pulse 73 Temp 36.6 ?C (97.8 ?F) (Tympanic) Resp 16 Wt 92.1 kg (203 lb) LMP 05/10/2021 SpO2 99% BMI 28.31 kg/m? PE: Pleasant, in no acute distress. Left hand dominant. Finger: left index. 2 keratotic calluses (2 and 3mm) distal pad. ASSESSMENT/PLAN: 1. Skin lesion of hand - ICD9: 709.9, ICD10: L98.9 The keratotic surface was paired down using a #15 scalpel revealing slightly translucence spherical cores below. Suspect verruca vulgaris. [place] needle foreign body is still in her differential. No current signs of infection. - CONSULT TO DERMATOLOGY. She may also consider OTC salicylic acid treatment. Leonid Ch MD Allergies As of Date: 04/14/2022 Noted Allergy Reaction SEASONAL ALLERGIES 03/05/2013 5 - Intolerance Date Reviewed: 04/14/2022 Reviewed by: Dariana Jones LPN - Fully Assessed Reason for Visit: left index finger pain [Other] Cmt: X 2 months Primary Visit Diagnosis:Skin lesion of hand [L98.9] Order(s):CONSULT TO DERMATOLOGY [9006] Order #: [id number]: 1 FUTURE Problem List As Of Date: 04/14/2022 (None) Encounter Status:Closed by LEONID CH on 04/14/22 [facility] LAM HUNGon 2021 LAM Bedolla EARNEST ABHILASH * * *Final Report* * * DATE OF EXAM: Sep 09 2021 9:09AM WRW 0627 - LAM Bedolla EARNEST ABHILASH / PROCEDURE REASON: Abnormal mammogram * * * * Physician Interpretation * * * * RESULT: #[id number] - LAM Bedolla EARNEST ABHILASH BILATERAL DIGITAL DIAGNOSTIC MAMMOGRAM TOMOSYNTHESIS WITH CAD: 09/09/2021 HISTORY: Abnormal Mammogram / Bilateral Diagnostic Mammogram;Call Back/Abnormal Mammogram. RESULT: TECHNIQUE: The study was acquired using full field digital technology and interpreted from soft copy. Digital Breast Tomosynthesis (DBT) images were obtained and used to assist in the interpretation of this examination. Current study was also evaluated with a Computer Aided Detection (CAD). Comparison is made to exams dated: 05/26/2021 mammogram - [facility] and 06/20/2017 mammogram - [facility]. The tissue of both breasts is heterogeneously dense. This may lower the sensitivity of mammography. Additional imaging was obtained. Focal area in question in both breasts in prior mammography is not reproduced and presumably represents superimposed breast tissue. No significant masses, calcifications, or other findings are seen in either breast. IMPRESSION: BENIGN FINDING There is no mammographic evidence of malignancy. Return to annual mammogram screening schedule is recommended. Pedro garcia/inder:09/09/2021 09:16:45 Traffic Chief(s): RT Lily(R)(M), [facility] Mammogram BI-RADS: 2 Benign finding Multiple national specialty organizations have released breast cancer screening guidelines for women at average risk for developing breast cancer - guidelines that are based on both evidence and opinion, yet differ on when to start and how often to screen for breast cancer. With representation from Breast Imaging, Internal Medicine, Women's Health, Family Medicine, and Medical/Surgical Oncology, the [facility] has carefully reviewed the data and reached the following consensus: 1) All women should engage in shared decision-making with their providers to decide when to start and how often to screen; 2) All women should have the opportunity to start screening mammography at age 40; 3) For women ages 45-55, we recommend annual screening mammograms; 4) For women ages 55 and over, we support both the transition from an annual to a biennial interval if this aligns more with patient's values and preferences, or continuation with annual screening; 5) All women should discuss with their providers when to stop screening mammograms. Obiee Report Developer: Inder Transcribe Date/Time: Sep 09 2021 8:59A Dictated by: PEDRO PAYNE MD This examination was interpreted and the report reviewed and electronically signed by: PEDRO PAYNE MD on Sep 09 2021 9:16AM EST [id number] [facility] LAM DIAG W EARNEST Martino - [facility] 06-23-2021 CNCO Letter Text Normal [facility] 05-27-2021 CNCO HNO ID: [id number] Author: Mammography Coordinator Service: ? Author Type: Physician Type: Letter Filed: 05/28/2021 11:36 PM Note Text: May 27, 2021 PID: [id number] Queta Stauffer [address] [place] [address] Dr Jodie Dongek, [facility] Dear Ms. Stauffer, Your recent breast imaging exam on 05/26/2021 showed a possible finding that requires additional imaging studies for a complete evaluation. Most such findings are probably benign (not cancer). Your mammogram demonstrates that you have dense breast tissue, which could hide abnormalities. Dense breast tissue, in and of itself, is a relatively common condition. Therefore, this information is not provided to cause undue concern; rather, it is to raise your awareness and promote discussion with your health care provider regarding the presence of dense breast tissue in addition to other risk factors. If you have a healthcare provider who ordered/prescribed your screening mammogram: Please call [phone] or [phone]: [phone] to schedule an appointment for your additional imaging (if you have not already done so). If you DO NOT have a healthcare provider (ie you did not have an order/prescription for your screening mammogram): Please call to schedule an appointment for your additional imaging (if you have not already done so). You must have an order/prescription from your physician when calling to schedule your appointment. If your order/prescription is not electronic, you must bring the hard copy with you on the day of your exam to avoid delays. Your imaging studies and reports are kept on file at [facility] as part of your permanent medical record, and are available for your continuing care. Thank you for allowing us to help in meeting your health care needs. Sincerely, Dr. Cleveland Interpreting Radiologist [place] [facility] (Additional imaging) [facility] 05-27-2021 CNPN Telephone (OBGYWM) -- QUETA STAUFFER ([id number]) 1975 F Date Time Provider Department 05/27/21 PATITO CALABRESE OBGYWM During your visit today, we recorded the following information about you: Allergies As of Date: 05/27/2021 Noted Allergy Reaction SEASONAL ALLERGIES 03/05/2013 5 - Intolerance Date Reviewed: 05/19/2021 Reviewed by: Patito Calabrese APRN.HOME HOUSEKEEPER - Fully Assessed Reason for Visit: Orders [681] Primary Visit Diagnosis:Abnormal mammogram [R92.8] Order(s):[facility] DIAGNOSTIC BILAT [[id number]] Order #: [id number] FUTURE US BREAST LTD RT [[id number]] Order #: [id number] FUTURE US BREAST LTD LT [[id number]] Order #: [id number] FUTURE Problem List As Of Date: 05/27/2021 (None) Encounter Status:Closed by PATITO CALABRESE on 05/27/21 [facility] SCREENINGon 05-26-2021 LAM SCREENING * * *Final Report* * * DATE OF EXAM: May 26 2021 4:36PM JN 0581 - [facility] SCREENING / PROCEDURE REASON: Encounter for screening mammogram for breast cancer * * * * Physician Interpretation * * * * RESULT: #[id number] - LAM SCREENING BILATERAL DIGITAL SCREENING MAMMOGRAM WITH CAD: 05/26/2021 HISTORY: Encounter For Screening Mammogram For Breast Cancer / Screening Mammogram-Patient reports NO symptoms. RESULT: TECHNIQUE: The study was acquired using full field digital technology and interpreted from soft copy. Current study was also evaluated with a Computer Aided Detection (CAD). Comparison is made to exam dated: 06/20/2017 mammogram - [facility]. The tissue of both breasts is heterogeneously dense. This may lower the sensitivity of mammography. There is a possible asymmetry in the right breast upper region seen on the mediolateral oblique view only. There is a possible asymmetry in the left breast upper region seen on the mediolateral oblique view only. No other significant masses or calcifications are seen in either breast. IMPRESSION: INCOMPLETE: NEEDS ADDITIONAL IMAGING EVALUATION The possible asymmetry in the right breast upper region seen on the mediolateral oblique view only is indeterminate. Additional views are recommended. The possible asymmetry in the left breast upper region seen on the mediolateral oblique view only is indeterminate. Additional views are recommended. Lakeshia Cleveland M.D., ch/inder:05/27/2021 14:00:07 Traffic Chief(s): RT Lily(R)(M), [facility] letter sent: Additional Imaging Needed Mammogram BI-RADS: 0 Incomplete: needs additional imaging evaluation If this report indicates you need additional imaging, and it has NOT yet been performed, please call , to schedule. We sincerely thank you for choosing the [facility] for your breast imaging needs. Multiple national specialty organizations have released breast cancer screening guidelines for women at average risk for developing breast cancer - guidelines that are based on both evidence and opinion, yet differ on when to start and how often to screen for breast cancer. With representation from Breast Imaging, Internal Medicine, Women's Health, Family Medicine, and Medical/Surgical Oncology, the [facility] has carefully reviewed the data and reached the following consensus: 1) All women should engage in shared decision-making with their providers to decide when to start and how often to screen; 2) All women should have the opportunity to start screening mammography at age 40; 3) For women ages 45-55, we recommend annual screening mammograms; 4) For women ages 55 and over, we support both the transition from an annual to a biennial interval if this aligns more with patient's values and preferences, or continuation with annual screening; 5) All women should discuss with their providers when to stop screening mammograms. Obiee Report Developer: Inder Transcribe Date/Time: May 26 2021 4:13P Dictated by: LAKESHIA CLEVELAND MD This examination was interpreted and the report reviewed and electronically signed by: LAKESHIA CLEVELAND MD on May 27 2021 2:00PM EST [id number] [facility] CNOVon 05-19-2021 CNOV Office Visit (OBGYWM ) -- QUETA STAUFFER ([id number]) 1975 F Date Time Provider Department 05/19/21 3:30 PM PATITO CALABRESE During your visit today, we recorded the following information about you: Blood pressure Weight Height Last Period 118/78 89.9 kg 1.803 m 05/10/21 Patito Calabrese APRN.HOME HOUSEKEEPER 05/19/2021 3:49 PM Signed Queta is a 45 year old who presents for an annual gynecologic exam without complaints. Menses: cycles every 25-30 days and 5 days of flow. 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 PAST SURGICAL HISTORY Procedure Laterality Date - COLONOSCOPY 2014 - DANDC, DIAG AND/OR THERAPEUTIC 2007 FAMILY HISTORY Problem Relation Age of Onset - Colon Cancer Mother - Hypertension Mother - Hyperlipidemia Mother - other (Other) Mother Mother had a growth removed from breast, was not cancerous. - Hypertension Father - Hyperlipidemia Father - other (Dementia) Father Lewy Body - Hyperlipidemia Brother - Hypertension Brother - Heart Maternal Grandmother Quadruple bipass surgery - Heart Maternal Grandfather - Arthritis Paternal Grandmother SOCIAL HISTORY Social History Tobacco Use - Smoking status: Never Smoker - Smokeless tobacco: Never Used Vaping Use - Vaping Use: Never used Substance Use Topics - Alcohol use: Yes Comment: very rare- 4 glasses of wine a year - Drug use: No REVIEW OF SYSTEMS Abdomen: No abdominal pain, nausea, vomiting, diarrhea, or constipation. No bloating, early satiety, indigestion, or increased flatulence. Bladder: No dysuria, gross hematuria, urinary frequency, urinary urgency, or incontinence. Breast: No breast lumps, nipple d/c, overlying skin changes, redness or skin retraction. Allergies and current medication updated:Yes EXAM: BP 118/78 Ht 5' 11 (1.80m) Wt 198 lb 3.2 oz (89.9kg) LMP 05/10/2021 BMI 27.66 kg/(m2). GENERAL: pleasant, female in no apparent distress HEENT: Normocephalic, atraumatic, mucus membranes moist and no lesions NECK: Supple, full range of motion, no adenopathy and thyroid normal DERMATOLOGY: Normal, without lesions, non-icteric and non-hirsute BREAST: soft, non-tender, symmetric, no dominant mass, normal nipple-areolar complex, no lymphadenopathy and no nipple discharge CHEST: Normal inspiratory effort ABDOMEN: soft, non-tender and no masses PELVIC: external genitalia normal, normal Bartholin's glands, urethra, [place]'s glands, no vulvar lesions, good vaginal support, physiologic discharge present, normal appearing perineal body and perianal region, +multiple red spot on left side of cervix BIMANUAL: uterus normal size, shape and consistency, no adnexal masses, non-tender and no cervical motion tenderness RECTOVAGINAL: deferred. NEURO: alert and oriented x3,exam grossly non-focal EXTREMITIES: normal ASSESSMENT/PLAN: 1) Health maintenance: Pap done with HPV. Mammogram ordered. Nutrition, exercise and routine health maintenance exams reviewed. Calcium/Vitamin D supplementation information provided. 2) Contraception: none. Contraceptive options reviewed and information provided. 3) STD screening: Declined STD check. 4) Follow up one year or sooner as needed KEYANA Rockwell 05/27/2021 8:48 AM Signed Normal pap letter sent Referring Provider: SELF [200] Allergies As of Date: 05/19/2021 Noted Allergy Reaction SEASONAL ALLERGIES 03/05/2013 5 - Intolerance Date Reviewed: 05/19/2021 Reviewed by: Patito Calabrese APRN.CNP - Fully Assessed Reason for Visit: Well Woman [1463] Primary Visit Diagnosis:Encounter for gynecological examination (general) (routine) without abnormal findings [Z01.419] Other Visit Diagnoses:Encounter for screening mammogram for breast cancer [Z12.31] Screening for malignant neoplasm of cervix [Z12.4] Encounter for screening for human papillomavirus (HPV) [Z11.51] Order(s):LAM SCREENING [[id number]] Order #: [id number] FUTURE PAP FLUID CERVICAL SCREENING [[id number]] Order #: [id number]. #:[id number] HPV W/GENOTYPE THIN PREP [[id number]] Reflex Order#: [id number] (Ord#:[id number])Spec. #:[id number] Problem List As Of Date: 05/19/2021 (None) Disposition: Return in 1 year (on 05/19/2022) for Annual Exam. Follow- (more content not included)... [facility] PAP FLUID CERVICAL SCREENING on 05-19-2021 CASE REPORT [facility] Comment on above: Order Comment: Speci men Type: FLUID SAMPLE Ordering Facility: [facility] Address: [address] [place] [address] Result Comment: Gyne cologic Cytology Report Case: [id number] Authorizing Provider: Patito Calabrese APRN.CNP Collected: 05/19/2021 03:51 PM Ordering Location: OB/Gynecology Received: 05/19/2021 05:22 PM First Screen: PABLO Gipson, ASCP Specimen: PAP COCOA BEAN CLEANER SCREENING, CERVICAL SCREENING FLUID Performed By: #### L [id number] #### [facility] CLIA [id number] [address] [place], [place] [address] [place] CLINICAL HISTORY ROUTINE EXAM [facility] Comment on above: Order Comment: Speci men Type: FLUID SAMPLE Ordering Facility: [facility] Address: [address] [place] [address] Performed By: #### L [id number] #### [facility] CLIA [id number] [address] [place] [address] CYTOLOGY INTERPRETATION PAP [facility] Comment on above: Order Comment: Speci men Type: FLUID SAMPLE Ordering Facility: [facility] Address: [address] [place], [place] [id number] Result Comment: Nega tive for Intraepithelial lesion or malignancy. Performed By: #### L [id number] #### [facility] CLIA [id number] [address] [place] [address] FINAL DIAGNOSIS [facility] Comment on above: Order Comment: Speci men Type: FLUID SAMPLE Ordering Facility: [facility] Address: [address] [place], [place] [id number] Result Comment: A - CERVICAL SCREENING FLUID Satisfactory for interpretation Negative for Intraepithelial lesion or malignancy. Performed By: #### L [id number] #### [facility] CLIA [id number] [address] [place], [place] [address] [place] [facility] FINAL PERFORMING LAB [facility] Comment on above: Order Comment: Speci men Type: FLUID SAMPLE Ordering Facility: [facility] Address: [address] [place], [place] [address] Result Comment: Tech nical component, road contractor screening performed at [facility], [address] [place], [place] [id number] CLIA# [id number] Diagnostic interpretation performed at [facility], [address] [place], [place] [id number] CLIA# [id number] Architectural Engineering Teacher: Brandt Felix M.D. Performed By: #### L [id number] #### [facility] CLIA [id number] [address] [place] [address] [place] HPV REQUESTED? Yes, automatic HPV patients over 30 [facility] Comment on above: Order Comment: Speci men Type: FLUID SAMPLE Ordering Facility: [facility] Address: [address] [place] [address] Performed By: #### L [id number] #### [facility] CLIA [id number] [address] [place] [address] [place] LMP 05/10/2021 [facility] Comment on above: Order Comment: Speci men Type: FLUID SAMPLE Ordering Facility: [facility] Address: [address] [place] [address] Performed By: #### L [id number] #### [facility] CLIA [id number] [address] [place] [address] [place] PAP DISCLAIMER COMMENT The Pap Smear is a screening test for cervical cancer. False negative results occur with all screening tests, emphasizing the need for rescreening at recommended intervals, and clinical correlation. [facility] Comment on above: Order Comment: Speci men Type: FLUID SAMPLE Ordering Facility: [facility] Address: [address] [place], [place] [address] Performed By: #### L [id number] #### [facility] CLIA [id number] [address] [place] [address] [place] PAP COCOA BEAN CLEANER COMMENT This specimen has be en analyzed by the ThinPrep Imaging System, an automated imaging and review system, which assists the laboratory in evaluating cells on ThinPrep Pap tests. Following automated imaging, selected cash from every slide are reviewed by a road contractor. [facility] Comment on above: Order Comment: Speci men Type: FLUID SAMPLE Ordering Facility: [facility] Address: [address] [place], [place] [id number] Performed By: #### L [id number] #### [facility] CLIA [id number] [address] [place] [address] [place] [address] [place] Vital Signs Date Time Vital Sign Value Performing Clinician Facility 11-02-2024 14:38-0400 Body height 180.[address] Chelsi Elkins MD Work Phone: [facility] 10-29-2024 08:36-0400 Body height 180.[address] Chelsi Elkins MD Work Phone: [facility] 10-29-2024 08:36-0400 Body mass index (BMI) [Ratio] 25.7 kg/m2 Dr. Chelsi Elkins MD Work Phone: [facility] 10-29-2024 08:36-0400 Body temperature 98.5 [degF] Dr. Chelsi Elkins MD Work Phone: [facility] 10-29-2024 08:36-0400 Body weight 83.[address] Chelsi Elkins MD Work Phone: [facility] 10-29-2024 08:36-0400 Diastolic blood pressure 76 mm[Hg] Dr. Chelsi Elkins MD Work Phone: [facility] 10-29-2024 08:36-0400 Heart rate 64 /min Dr. Chelsi Elkins MD Work Phone: [facility] 10-29-2024 08:36-0400 Respiratory rate 16 /min Dr. Chelsi Elkins MD Work Phone: [facility] 10-29-2024 08:36-0400 SaO2% (BldA) [Mass fraction] 98 % Dr. Chelsi Elkins MD Work Phone: [facility] 10-29-2024 08:36-0400 Systolic blood pressure 114 mm[Hg] Dr. Chelsi Elkins MD Work Phone: [facility] 07-09-2024 08:04-0400 Body height 180.[address] Chelsi Elkins MD Work Phone: [facility] 07-09-2024 08:04-0400 Body mass index (BMI) [Ratio] 25.9 kg/m2 Dr. Chelsi Elkins MD Work Phone: [facility] 07-09-2024 08:04-0400 Body temperature 98.2 [degF] Dr. Chelsi Elkins MD Work Phone: [facility] 07-09-2024 08:04-0400 Body weight 84.[address] Chelsi Elkins MD Work Phone: [facility] 07-09-2024 08:04-0400 Diastolic blood pressure 76 mm[Hg] Dr. Chelsi Elkins MD Work Phone: [facility] 07-09-2024 08:04-0400 Heart rate 83 /min Dr. Chelsi Elkins MD Work Phone: [facility] 07-09-2024 08:04-0400 Respiratory rate 18 /min Dr. Chelsi Elkins MD Work Phone: [facility] 07-09-2024 08:04-0400 SaO2% (BldA) [Mass fraction] 99 % Dr. Chelsi Elkins MD Work Phone: [facility] 07-09-2024 08:04-0400 Systolic blood pressure 134 mm[Hg] Dr. Chelsi Elkins MD Work Phone: [facility] 07-06-2024 16:17-0400 Body temperature 98.3 [degF] Dr. Chelsi Elkins MD Work Phone: [facility] 07-06-2024 16:17-0400 Diastolic blood pressure 70 mm[Hg] Dr. Chelsi Eklins MD Work Phone: [facility] 07-06-2024 16:17-0400 Heart rate 71 /min Dr. Chelsi Elkins MD Work Phone: [facility] 07-06-2024 16:17-0400 Respiratory rate 14 /min Dr. Chelsi Elkins MD Work Phone: [facility] 07-06-2024 16:17-0400 SaO2% (BldA) [Mass fraction] 96 % Dr. Chelsi Elkins MD Work Phone: [facility] 07-06-2024 16:17-0400 Systolic blood pressure 112 mm[Hg] Dr. Chelsi Elkins MD Work Phone: [facility] 06-25-2024 15:31-0400 Body mass index (BMI) [Ratio] 25.8 kg/m2 Dr. Chelsi Elkins MD Work Phone: [facility] 06-25-2024 15:31-0400 Body temperature 97.5 [degF] Dr. Chelsi Elkins MD Work Phone: [facility] 06-25-2024 15:31-0400 Body weight 83.[address] Chelsi Elkins MD Work Phone: [facility] 06-25-2024 15:31-0400 Diastolic blood pressure 85 mm[Hg] Dr. Chelsi Elkins MD Work Phone: [facility] 06-25-2024 15:31-0400 Heart rate 68 /min Dr. Chelsi Elkins MD Work Phone: [facility] 06-25-2024 15:31-0400 Respiratory rate 16 /min Dr. Chelsi Elkins MD Work Phone: [facility] 06-25-2024 15:31-0400 SaO2% (BldA) [Mass fraction] 98 % Dr. Chelsi Elkins MD Work Phone: [facility] 06-25-2024 15:31-0400 Systolic blood pressure 131 mm[Hg] Dr. Chelsi Elkins MD Work Phone: [facility] 03-06-2023 15:59-0500 Body height 180.34 cm [employer] Angélica Seffens [employer] Work Phone: [facility] 03-06-2023 15:59-0500 Body mass index (BMI) [Ratio] 23.8 kg/m2 [employer] Angélica Seffens [employer] Work Phone: [facility] 03-06-2023 15:59-0500 Body temperature 97.9 [degF] [employer] Angélica Seffens [employer] Work Phone: [facility] 03-06-2023 15:59-0500 Body weight 77.56 kg [employer] Angélica Seffens [employer] Work Phone: [facility] 03-06-2023 15:59-0500 Diastolic blood pressure 77 mm[Hg] [employer] Angélica Seffens [employer] Work Phone: [facility] 03-06-2023 15:59-0500 Heart rate 60 /min [employer] Angélica Seffens [employer] Work Phone: [facility] 03-06-2023 15:59-0500 Respiratory rate 16 /min [employer] Angélica Seffens [employer] Work Phone: [facility] 03-06-2023 15:59-0500 SaO2% (BldA) [Mass fraction] 98 % [employer] Angélica Seffens [employer] Work Phone: [facility] 03-06-2023 15:59-0500 Systolic blood pressure 124 mm[Hg] [employer] Angélica Seffens [employer] Work Phone: [facility] 03-02-2023 07:51-0500 Body height 180.34 cm [employer] Angélica Seffens [employer] Work Phone: [facility] 03-02-2023 07:51-0500 Body mass index (BMI) [Ratio] 23.7 kg/m2 [employer] Angélica Seffens [employer] Work Phone: [facility] 03-02-2023 07:51-0500 Body temperature 98.9 [degF] [employer] Angélica Seffens [employer] Work Phone: [facility] 03-02-2023 07:51-0500 Body weight 77.28 kg [employer] Angélica Seffens [employer] Work Phone: [facility] 03-02-2023 07:51-0500 Diastolic blood pressure 88 mm[Hg] [employer] Angélica Seffens [employer] Work Phone: [facility] 03-02-2023 07:51-0500 Heart rate 80 /min [employer] Angélica Seffens [employer] Work Phone: [facility] 03-02-2023 07:51-0500 Respiratory rate 15 /min [employer] Angélica Seffens [employer] Work Phone: [facility] 03-02-2023 07:51-0500 SaO2% (BldA) [Mass fraction] 98 % [employer] Angélica Seffens [employer] Work Phone: [facility] 03-02-2023 07:51-0500 Systolic blood pressure 132 mm[Hg] [employer] Angélica Seffens [employer] Work Phone: [facility] 02-25-2023 09:20-0500 Body mass index (BMI) [Ratio] 23.8 kg/m2 [employer] Angélica Seffens [employer] Work Phone: [facility] 02-25-2023 09:20-0500 Body weight 77.73 kg [employer] Angélica Seffens [employer] Work Phone: [facility] 02-25-2023 09:20-0500 Diastolic blood pressure 85 mm[Hg] [employer] Angélica Seffens [employer] Work Phone: [facility] 02-25-2023 09:20-0500 Systolic blood pressure 130 mm[Hg] [employer] Angélica Seffens [employer] Work Phone: [facility] 01-27-2023 15:20-0500 Body mass index (BMI) [Ratio] 24.1 kg/m2 [employer] Angélica Seffens [employer] Work Phone: [facility] 01-27-2023 15:20-0500 Body temperature 98.5 [degF] [employer] Angélica Seffens [employer] Work Phone: [facility] 01-27-2023 15:20-0500 Body weight 78.58 kg [employer] Angélica Seffens [employer] Work Phone: [facility] 01-27-2023 15:20-0500 Diastolic blood pressure 79 mm[Hg] [employer] Angélica Seffens [employer] Work Phone: [facility] 01-27-2023 15:20-0500 Heart rate 58 /min [employer] Angélica Seffens [employer] Work Phone: [facility] 01-27-2023 15:20-0500 Respiratory rate 16 /min [employer] Angélica Seffens [employer] Work Phone: [facility] 01-27-2023 15:20-0500 SaO2% (BldA) [Mass fraction] 97 % [employer] Angélica Seffens [employer] Work Phone: [facility] 01-27-2023 15:20-0500 Systolic blood pressure 120 mm[Hg] [employer] Angélica Seffens [employer] Work Phone: [facility] 01-27-2023 15:01-0500 Body mass index (BMI) [Ratio] 24.1 kg/m2 [employer] Angélica Seffens [employer] Work Phone: [facility] 01-27-2023 15:01-0500 Body temperature 98.5 [degF] [employer] Angélica Seffens [employer] Work Phone: [facility] 01-27-2023 15:01-0500 Body weight 78.58 kg [employer] Angélica Seffens [employer] Work Phone: [facility] 01-27-2023 15:01-0500 Diastolic blood pressure 79 mm[Hg] [employer] Angélica Seffens [employer] Work Phone: [facility] 01-27-2023 15:01-0500 Heart rate 58 /min [employer] Angélica Seffens [employer] Work Phone: [facility] 01-27-2023 15:01-0500 Respiratory rate 16 /min [employer] Angélica Seffens [employer] Work Phone: [facility] 01-27-2023 15:01-0500 SaO2% (BldA) [Mass fraction] 97 % [employer] Angélica Seffens [employer] Work Phone: [facility] 01-27-2023 15:01-0500 Systolic blood pressure 120 mm[Hg] [employer] Angélica Seffens [employer] Work Phone: [facility] 01-25-2023 15:53-0500 Body mass index (BMI) [Ratio] 23.7 kg/m2 [employer] Angélica Seffens [employer] Work Phone: [facility] 01-25-2023 15:53-0500 Body temperature 98.6 [degF] [employer] Angélica Seffens [employer] Work Phone: [facility] 01-25-2023 15:53-0500 Body weight 77.11 kg [employer] Angélica Seffens [employer] Work Phone: [facility] 01-25-2023 15:53-0500 Diastolic blood pressure 85 mm[Hg] [employer] Angélica Seffens [employer] Work Phone: [facility] 01-25-2023 15:53-0500 Heart rate 58 /min [employer] Angélica Seffens [employer] Work Phone: [facility] 01-25-2023 15:53-0500 Respiratory rate 14 /min [employer] Angélica Seffens [employer] Work Phone: [facility] 01-25-2023 15:53-0500 SaO2% (BldA) [Mass fraction] 100 % [employer] Angélica Seffens [employer] Work Phone: [facility] 01-25-2023 15:53-0500 Systolic blood pressure 127 mm[Hg] [employer] Angélica Seffens [employer] Work Phone: [facility] 12-27-2022 14:49-0400 Body mass index (BMI) [Ratio] 24.3 kg/m2 [employer] Angélica Seffens [employer] Work Phone: [facility] 12-27-2022 14:49-0400 Body temperature 98.3 [degF] [employer] Angélica Seffens [employer] Work Phone: [facility] 12-27-2022 14:49-0400 Body weight 79.06 kg [employer] Angélica Seffens [employer] Work Phone: [facility] 12-27-2022 14:49-0400 Diastolic blood pressure 82 mm[Hg] [employer] Angélica Seffens [employer] Work Phone: [facility] 12-27-2022 14:49-0400 Heart rate 65 /min [employer] Angélica Seffens [employer] Work Phone: [facility] 12-27-2022 14:49-0400 Respiratory rate 16 /min [employer] Angélica Seffens [employer]ER Work Phone: [facility] 12-27-2022 14:49-0400 SaO2% (BldA) [Mass fraction] 97 % [employer] Angélica Seffens [employer]ER Work Phone: [facility] 12-27-2022 14:49-0400 Systolic blood pressure 123 mm[Hg] [employer] Angélica Seffens [employer]ER Work Phone: [facility] 12-21-2022 14:58-0400 Body mass index (BMI) [Ratio] 24 kg/m2 [employer] Angélica Seffens [employer]ER Work Phone: [facility] 12-21-2022 14:58-0400 Body temperature 98.7 [degF] [employer] Angélica Seffens [employer] Work Phone: [facility] 12-21-2022 14:58-0400 Body weight 78.27 kg [employer] Angélica Seffens [employer]ER Work Phone: [facility] 12-21-2022 14:58-0400 Diastolic blood pressure 78 mm[Hg] [employer] Angélica Seffens [employer]ER Work Phone: [facility] 12-21-2022 14:58-0400 Heart rate 62 /min [employer] Angélica Seffens [employer] Work Phone: [facility] 12-21-2022 14:58-0400 Respiratory rate 18 /min [employer] Angélica Seffens [employer]ER Work Phone: [facility] 12-21-2022 14:58-0400 SaO2% (BldA) [Mass fraction] 93 % [employer] Angélica Seffens [employer]ER Work Phone: [facility] 12-21-2022 14:58-0400 Systolic blood pressure 117 mm[Hg] [employer] Angélica Seffens [employer]ER Work Phone: [facility] 12-14-2022 14:48-0400 Body mass index (BMI) [Ratio] 24 kg/m2 [employer] Angélica Seffens [employer]ER Work Phone: [facility] 12-14-2022 14:48-0400 Body temperature 98.2 [degF] [employer] Angélica Seffens [employer]ER Work Phone: [facility] 12-14-2022 14:48-0400 Body weight 78.27 kg [employer] Angélica Seffens [employer]ER Work Phone: [facility] 12-14-2022 14:48-0400 Diastolic blood pressure 81 mm[Hg] [employer] Angélica Seffens [employer]ER Work Phone: [facility] 12-14-2022 14:48-0400 Heart rate 57 /min [employer] Angélica Seffens [employer]ER Work Phone: [facility] 12-14-2022 14:48-0400 Respiratory rate 16 /min [employer] Angélica Seffens [employer] Work Phone: [facility] 12-14-2022 14:48-0400 SaO2% (BldA) [Mass fraction] 99 % [employer] Angélica Seffens [employer]ER Work Phone: [facility] 12-14-2022 14:48-0400 Systolic blood pressure 121 mm[Hg] [employer] Angélica Seffens [employer]ER Work Phone: [facility] 12-07-2022 14:59-0400 Body mass index (BMI) [Ratio] 23.9 kg/m2 [employer] Angélica Seffens [employer] Work Phone: [facility] 12-07-2022 14:59-0400 Body temperature 97.8 [degF] [employer] Angélica Seffens [employer] Work Phone: [facility] 12-07-2022 14:59-0400 Body weight 77.79 kg [employer] Angélica Seffens [employer]ER Work Phone: [facility] 12-07-2022 14:59-0400 Diastolic blood pressure 84 mm[Hg] [employer] Angélica Seffens [employer]ER Work Phone: [facility] 12-07-2022 14:59-0400 Heart rate 55 /min [employer] Angélica Seffens [employer]ER Work Phone: [facility] 12-07-2022 14:59-0400 Respiratory rate 18 /min [employer] Angélica Seffens [employer]ER Work Phone: [facility] 12-07-2022 14:59-0400 SaO2% (BldA) [Mass fraction] 97 % [employer] Angélica Seffens [employer]ER Work Phone: [facility] 12-07-2022 14:59-0400 Systolic blood pressure 127 mm[Hg] [employer] Angélica Seffens [employer]ER Work Phone: [facility] 11-23-2022 16:08-0400 Body mass index (BMI) [Ratio] 24.5 kg/m2 [employer] Angélica Seffens [employer]ER Work Phone: [facility] 11-23-2022 16:08-0400 Body temperature 99 [degF] [employer] Angélica Seffens [employer]ER Work Phone: [facility] 11-23-2022 16:08-0400 Body weight 79.86 kg [employer] Angélica Seffens [employer]ER Work Phone: [facility] 11-23-2022 16:08-0400 Diastolic blood pressure 79 mm[Hg] [employer] Angélica Seffens [employer]ER Work Phone: [facility] 11-23-2022 16:08-0400 Heart rate 59 /min [employer] Angélica Seffens [employer]ER Work Phone: [facility] 11-23-2022 16:08-0400 Respiratory rate 16 /min [employer] Angélica Seffens [employer]ER Work Phone: [facility] 11-23-2022 16:08-0400 SaO2% (BldA) [Mass fraction] 100 % [employer] Angélica Seffens [employer]ER Work Phone: [facility] 11-23-2022 16:08-0400 Systolic blood pressure 121 mm[Hg] [employer] Angélica Seffens [employer]ER Work Phone: [facility] 11-18-2022 09:05-0400 Body mass index (BMI) [Ratio] 24.4 kg/m2 [employer] Angélica Seffens [employer]ER Work Phone: [facility] 11-18-2022 09:05-0400 Body temperature 98.4 [degF] [employer] Angélica Seffens [employer]ER Work Phone: [facility] 11-18-2022 09:05-0400 Body weight 79.37 kg [employer] Angélica Seffens [employer]ER Work Phone: [facility] 11-18-2022 09:05-0400 Diastolic blood pressure 89 mm[Hg] [employer] Angélica Seffens [employer]ER Work Phone: [facility] 11-18-2022 09:05-0400 Heart rate 69 /min [employer] Angélica Seffens [employer]ER Work Phone: [facility] 11-18-2022 09:05-0400 Respiratory rate 16 /min [employer] Angélica Seffens [employer]ER Work Phone: [facility] 11-18-2022 09:05-0400 SaO2% (BldA) [Mass fraction] 99 % [employer] Angélica Seffens [employer]ER Work Phone: [facility] 11-18-2022 09:05-0400 Systolic blood pressure 129 mm[Hg] [employer] Angélica Seffens [employer]ER Work Phone: [facility] 11-01-2022 09:24-0400 Body weight 79.83 kg [employer] Angélica Seffens [employer]ER Work Phone: [facility] 10-06-2022 14:56-0400 Body temperature 98.9 [degF] [employer] Angélica Seffens [employer]ER Work Phone: [facility] 10-06-2022 14:56-0400 Diastolic blood pressure 68 mm[Hg] [employer] Angélica Seffens [employer]ER Work Phone: [facility] 10-06-2022 14:56-0400 Heart rate 64 /min [employer] Angélica Seffens [employer]ER Work Phone: [facility] 10-06-2022 14:56-0400 Respiratory rate 17 /min [employer] Angélica Seffens [employer]ER Work Phone: [facility] 10-06-2022 14:56-0400 SaO2% (BldA) [Mass fraction] 99 % [employer] Angélica Seffens [employer]ER Work Phone: [facility] 10-06-2022 14:56-0400 Systolic blood pressure 123 mm[Hg] [employer] Angélica Seffens [employer]ER Work Phone: [facility] 10-06-2022 08:07-0400 Body height 180.34 cm [employer] Angélica Seffens [employer]ER Work Phone: [facility] 10-06-2022 08:07-0400 Body mass index (BMI) [Ratio] 25.4 kg/m2 [employer] Angélica Seffens [employer]ER Work Phone: [facility] 10-06-2022 08:07-0400 Body weight 83 kg [employer] Angélica Seffens [employer]ER Work Phone: [facility] 10-04-2022 16:02-0400 Body mass index (BMI) [Ratio] 25.7 kg/m2 [employer] Angélica Seffens [employer]ER Work Phone: [facility] 10-04-2022 16:02-0400 Body temperature 98.9 [degF] [employer] Angélica Seffens [employer]ER Work Phone: [facility] 10-04-2022 16:02-0400 Body weight 83.46 kg [employer] Angélica Seffens [employer]ER Work Phone: [facility] 10-04-2022 16:02-0400 Diastolic blood pressure 80 mm[Hg] [employer] Angélica Seffens [employer]ER Work Phone: [facility] 10-04-2022 16:02-0400 Heart rate 67 /min [employer] Angélica Seffens [employer]ER Work Phone: [facility] 10-04-2022 16:02-0400 Respiratory rate 18 /min [employer] Angélica Seffens [employer]ER Work Phone: [facility] 10-04-2022 16:02-0400 SaO2% (BldA) [Mass fraction] 98 % [employer] Anéglica Seffens [employer]ER Work Phone: [facility] 10-04-2022 16:02-0400 Systolic blood pressure 124 mm[Hg] [employer] Angélica Seffens [employer]ER Work Phone: [facility] 09-24-2022 10:53-0400 Body height 180.34 cm [employer] Angélica Seffens [employer]ER Work Phone: [facility] 09-24-2022 10:53-0400 Body mass index (BMI) [Ratio] 25.7 kg/m2 [employer] Angélica Seffens [employer]ER Work Phone: [facility] 09-24-2022 10:53-0400 Body temperature 97.4 [degF] [employer] Angélica Seffens [employer]ER Work Phone: [facility] 09-24-2022 10:53-0400 Body weight 83.51 kg [employer] Angélica Seffens [employer]ER Work Phone: [facility] 09-24-2022 10:53-0400 Diastolic blood pressure 82 mm[Hg] [employer] Angélica Seffens [employer]ER Work Phone: [facility] 09-24-2022 10:53-0400 Heart rate 64 /min [employer] Angélica Seffens [employer]ER Work Phone: [facility] 09-24-2022 10:53-0400 Respiratory rate 17 /min [employer] Angélica Seffens [employer] Work Phone: [facility] 09-24-2022 10:53-0400 Systolic blood pressure 124 mm[Hg] [employer] Angélica Ramirez NP Work Phone: [facility] 04-14-2022 11:38-0500 Body temperature 97.81 [degF] Leondi Ch MD Work Phone: [facility] 04-14-2022 11:38-0500 Body weight 92.08 kg Leonid Ch MD Work Phone: [facility] 04-14-2022 11:38-0500 Diastolic blood pressure 82 mm[Hg] Leonid Ch MD Work Phone: [facility] 04-14-2022 11:38-0500 Heart rate 73 /min Leonid Ch MD Work Phone: [facility] 04-14-2022 11:38-0500 Respiratory rate 16 /min Leonid Ch MD Work Phone: [facility] 04-14-2022 11:38-0500 SaO2% (BldA) [Mass fraction] 99 % Leonid Ch MD Work Phone: [facility] 04-14-2022 11:38-0500 Systolic blood pressure 132 mm[Hg] Leonid Ch MD Work Phone: [facility] Encounters Encounter Date Encounter Type Care Provider Facility Start: 01-14-2025 End: 01-14-2025 ambulatory [facility] Start: 11-02-2024 End: 11-02-[address] Chelsi Elkins MD Work Phone: -Laboratory Specimen Start: 11-02-2024 End: 11-02-[address] Julianna Hsu DO -Laboratory Specimen Work Phone: Start: 11-02-2024 Encounter for gynecological examination (general) (routine) without abnormal findings Julianna Hsu [facility] Start: 11-02-2024 End: 11-02-[address] Julianna [facility]ande Velde [facility] Work Phone: Start: 11-02-2024 End: 11-02-[address] Julianna Hsu [facility] Start: 11-02-2024 End: 11-02-[address] Chelsi Elkins MD Work Phone: [facility] Start: 11-02-2024 End: 11-02-[facility] Start: 10-29-2024 End: 10-29-[address] Raymundo Tan [facility] Work Phone: Start: 10-29-2024 End: 10-29-[address] Chelsi Elkins MD Work Phone: [facility] Start: 08-10-2024 End: 08-10-[address] Chelsi Elkins MD Work Phone: [facility] Work Phone: Start: 08-10-2024 End: 08-10-[address] Chelsi Elkins MD -Laboratory [facility] Start: 08-10-2024 End: 08-10-2024 ambulatory Chelsi Denglay [facility] Start: 07-09-2024 End: 07-09-[address] Chelsi Elkins MD -[facility] Work Phone: Start: 07-09-2024 End: 07-09-2024 ambulatory Angélica Ramirez Facility:[facility] Start: 07-06-2024 End: 07-06-2024 Patient encounter procedure Ezio HERNADEZ -[facility] Work Phone: Start: 07-06-2024 End: 07-06-2024 ambulatory Chelsi Elkins [facility] Start: 06-25-2024 End: 06-25-[address] Raymundo Tan [facility] Work Phone: Start: 06-25-2024 End: 06-25-2024 ambulatory Chelsi Brittni [facility] Start: 03-02-2024 End: 03-02-2024 ambulatory Chelsi Embarrass Facility:[facility] Start: 01-23-2024 End: 01-23-2024 ambulatory Chelsi Embarrass Facility:[facility] Start: 05-31-[address] Chelsi Elkins MD Work Phone: [facility] Start: 04-04-2023 End: 04-04-2023 ambulatory [employer] Angélica Nathalyns [employer] Work Phone: [facility] Work Phone: Start: 04-04-2023 End: 04-04-2023 Patient encounter procedure [employer] Angélica Ashley [employer] Work Phone: [facility]-Laboratory, Specimen Work Phone: Start: 03-06-2023 End: 03-06-2023 Emergency department patient visit [employer] Angélica Ashley [employer] Work Phone: [facility]Emergency Department Work Phone: Start: 03-02-2023 End: 03-02-2023 Patient encounter procedure [employer] Angélica Nathalyns [employer]ER Work Phone: [facility] Work Phone: Start: 02-28-2023 End: 02-28-2023 ambulatory [employer] Angélica Nathalyns [employer] Work Phone: [facility] Work Phone: Start: 02-28-2023 End: 02-28-2023 Patient encounter procedure [employer] Angélica Nathalyns [employer]ER Work Phone: [facility]Out[facility] Work Phone: Start: 02-25-2023 End: 02-25-2023 ambulatory [employer] Angélica Nathalyns [employer] Work Phone: [facility] Work Phone: Start: 02-25-2023 End: 02-25-2023 Patient encounter procedure [employer] Angélica Ramirez [employer] Work Phone: [facility]-Laboratory, Specimen Work Phone: Start: 02-25-2023 End: 02-25-2023 Patient encounter procedure [employer] Angélica Ramirez [employer] Work Phone: [facility] Work Phone: Start: 02-01-2023 Registered Recurring [employer] Gracia marshall Sepietro VENEER STACKER Work Phone: [facility] Start: 01-27-2023 End: 01-27-2023 Patient encounter procedure VENEER STACKER-C Angélica Ramirez VENEER STACKER Work Phone: [facility] Work Phone: Start: 01-25-2023 End: 01-25-2023 Patient encounter procedure VENEER STACKER-C Angélica Ramirez VENEER STACKER Work Phone: [facility] Work Phone: Start: 12-27-2022 End: 12-27-2022 Patient encounter procedure VENEER STACKER-C Angélica Ramirez VENEER STACKER Work Phone: [facility] Work Phone: Start: 12-27-2022 Non-patient / Non-visit VENEER STACKER-C Ricci otilialambert Plascenciapietro VENEER STACKER [facility] Work Phone: Start: 12-21-2022 End: 12-21-2022 Patient encounter procedure VENEER STACKER-C Angélica Andersenns VENEER STACKER [facility] Work Phone: Start: 12-14-2022 End: 12-14-2022 Patient encounter procedure VENEER STACKER-C Angélica Plascencialetins VENEER STACKER Work Phone: [facility] Work Phone: Start: 12-07-2022 End: 12-07-2022 Patient encounter procedure VENEER STACKER-C Angélica Andersenns VENEER STACKER Work Phone: [facility] Work Phone: Start: 12-06-2022 Non-patient / Non-visit VENEER STACKER-C C lena Andersenns VENEER STACKER Work Phone: [facility] Start: 12-03-2022 Non-patient / Non-visit VENEER STACKER-C C lena Andersenns VENEER STACKER Work Phone: [facility] Start: 12-02-2022 Non-patient / Non-visit VENEER STACKER-C C lena Andersenns VENEER STACKER Work Phone: [facility] Start: 11-24-2022 Non-patient / Non-visit VENEER STACKER-C C lena Andersenns VENEER STACKER Work Phone: [facility] Start: 11-23-2022 End: 11-23-2022 Patient encounter procedure VENEER STACKER-C Angélica Ramirez VENEER STACKER [facility] Phone[facility] Work Phone: Start: 11-22-2022 End: 11-22-2022 Patient encounter procedure VENEER STACKER-C Angélica Nathalyns VENEER STACKER Work Phone: [facility] Work Phone: Start: 11-18-2022 End: 11-18-2022 Patient encounter procedure VENEER STACKER-C Angélica Seletins VENEER STACKER Work Phone: [facility] Work Phone: Start: 10-20-2022 End: 10-20-2022 ambulatory VENEER STACKER-C Angélica Nathalyns VENEER STACKER Work Phone: [facility] Work Phone: Start: 10-20-2022 End: 10-20-2022 Patient encounter procedure VENEER STACKER-C Angélicajoanna Ramirez VENEER STACKER Work Phone: [facility] Work Phone: Start: 10-13-2022 End: 10-13-2022 Patient encounter procedure VENEER STACKER-C Angélica Ramirez VENEER STACKER Work Phone: [facility] Work Phone: Start: 10-06-2022 Non-patient / Non-visit VENEER STACKER-C Ricci Ramirez VENEER STACKER Work Phone: [facility] Start: 10-06-2022 End: 10-06-2022 Admission to same day surgery center VENEER STACKER-C Angélica Ramirez VENEER STACKER Work Phone: [facility] Start: 10-04-2022 End: 10-04-2022 Patient encounter procedure VENEER STACKER-C Angélica Ramirez VENEER STACKER Work Phone: [facility] Work Phone: Start: 10-04-2022 End: 10-04-2022 Non-patient / Non-visit VENEER STACKER-C Angélica Ramirez VENEER STACKER Work Phone: [facility] Work Phone: Start: 09-29-2022 End: 09-29-2022 Patient encounter procedure VENEER STACKER-C Angélica Ramirez VENEER STACKER Work Phone: [facility] Work Phone: Start: 09-24-2022 End: 09-24-2022 ambulatory VENEER STACKER-C Angélica Ramirez VENEER STACKER Work Phone: [facility] Work Phone: Start: 09-24-2022 End: 09-24-2022 Patient encounter procedure VENEER STACKER-C Angélica Ramirez VENEER STACKER Work Phone: [facility] Work Phone: Start: 09-24-2022 End: 09-24-2022 Patient encounter procedure VENEER STACKER-C Angélica Ramirez VENEER STACKER Work Phone: [facility] Work Phone: Start: 09-20-2022 End: 09-21-2022 ambulatory MERISSA WADE GAUGER DELIVERY - HOME HOUSEKEEPER Facility:[facility] Start: 09-20-2022 End: 09-20-2022 Patient encounter procedure MERISSA WADE GAUGER DELIVERY - HOME HOUSEKEEPER [facility] Start: 09-07-2022 End: 09-12-2022 ambulatory ANGÉLICA SEFFENS GAUGER DELIVERY-HOME HOUSEKEEPER Facility:[facility] Start: 09-07-2022 End: 09-11-2022 Outreach Lab ANGÉLICA SELETINS GAUGER DELIVERY-HOME HOUSEKEEPER [facility] Start: 09-06-2022 End: 09-07-2022 ambulatory ANGÉLICA SEFFENS GAUGER DELIVERY-HOME HOUSEKEEPER Facility:[facility] Start: 09-06-2022 End: 09-06-2022 Patient encounter procedure ANGÉLICA PLASCENCIAFFENS GAUGER DELIVERY-HOME HOUSEKEEPER [facility] Start: 06-29-2022 End: 06-29-2022 ambulatory [facility] Work Phone: Start: 06-29-2022 End: 06-29-[address] [facility] Start: 04-14-2022 End: 04-14-2022 ambulatory KADY MUNOZ Facility:[facility] Start: 04-14-2022 End: 04-14-2022 Patient encounter procedure Leonid Ch MD Work Phone: [facility] Comment on above: Skin lesion of hand (Primary Dx) Start: 09-09-2021 End: 09-09-2021 ambulatory PATITO CALABRESE Facility:[facility] Start: 09-09-2021 End: 09-09-2021 Subsequent hospital visit by physician Diagnostic Mammo [facility] Comment on above: Abnormal mammogram [ R92.8] Start: 05-26-2021 End: 05-26-2021 ambulatory [facility] Facility:[facility] Start: 05-19-2021 End: 05-19-2021 [facility] Facility:[facility] Procedures Date Procedure Procedure Detail Performing Clinician Start: 11-02-2024 Liquid based cervica l cytology screening Dr. Chelsi Elkins MD Work Phone: Comment on above: NEGATIVE FOR INTRAEP ITHELIAL LESION OR MALIGNANCY. This liquid based Th inPrep(R) pap test was screened withthe use of an image guided system. Start: 04-04-2023 Investigation of tra nsfusion reaction VENEER STACKER-C Angélica Plascenciapietro VENEER STACKER Work Phone: Start: 04-04-2023 Microbial culture, routine VENEER STACKER-C Angélica Plascenciapietro VENEER STACKER Work Phone: Start: 02-28-2023 Bilateral mammography N P-C Angélica Plascenciapietro VENEER STACKER Work Phone: Start: 02-28-2023 Ultrasonography of breast VENEER STACKER-C Angélica Plascenciapietro VENEER STACKER Work Phone: Start: 10-20-2022 Dual energy X-ray absorptiometry VENEER STACKER-C Angélica Adnersenkimberlee VENEER STACKER Work Phone: Start: 10-06-2022 Specimen mammography VENEER STACKER -C Angélica Plascenciapietro VENEER STACKER Work Phone: Start: 10-06-2022 Breast procedure VENEER STACKER-C Ricci paredes Sepietro VENEER STACKER Work Phone: Start: 10-06-2022 Radionuclide sentine l lymph node study VENEER STACKER-Ricci Dhillon Sepietro VENEER STACKER Work Phone: Start: 10-04-2022 Plain chest X-ray VENEER STACKER-C Angélica Plascenciapietro VENEER STACKER Work Phone: Start: 09-24-2022 Mammography VENEER STACKER-C Mariann verdin Ashley VENEER STACKER Work Phone: Start: 09-09-2021 End: 09-09-2021 Digital breast tomosynthesis bilateral Patito Calabrese GAUGER DELIVERY.HOME HOUSEKEEPER Work Phone: Start: 03-14-2007 Dilation and curettage ANGÉLICA RAMIREZ GAUGER DELIVERY-HOME HOUSEKEEPER Plan of Treatment Date Care Activity Detail Author Start: 05-19-2026 HPV TESTING HPV TESTING [facility] Start: 05-19-2026 PAP TESTING PAP TESTING [facility] Start: 03-06-2023 [facility] Start: 03-06-2023 Simple repair scalp/neck/ax/genit/trunk 2.5cm/< RPR S/N/AX/GEN/TRNK 2.5CM/< [facility] Start: 02-25-2023 Liquid based cervical cytology screening [facility] Start: 01-27-2023 Patient referral [facility] Work Phone: Start: 10-06-2022 Anesthesia radical/modified radical breast ANESTH SURGERY OF BREAST [facility] Start: 10-06-2022 Bx/exc lymph node open deep axillary node BIOPSY/REMOVAL LYMPH NODES [facility] Start: 10-06-2022 Mastectomy partial PARTIAL MASTECTOMY [facility] Start: 10-06-2022 Perq breast loc device placemt [facility]st [facility] PERQ DEV BREAST 1ST [facility] Start: 10-06-2022 Patient discharge [facility] Start: 09-29-2022 Patient referral [facility] Work Phone: Start: 09-09-2022 Mammography MAMMOGRAM [facility] Start: 03-14-2022 DEPRESSION ASSESSMENT DEPRESSION ASSESSMENT [facility] Start: 2021 COLOGUARD (FIT-DNA) COLOGUARD (FIT-DNA) [facility] Start: 2021 Colonoscopy COLONOSCOPY [facility] Start: 2021 COLORECTAL CANCER SCREENING COLORECTAL CANCER SCREENING [facility] Start: [address] COLONOGRAPHY [facility] Start: 2021 DIABETES SCREEN DIABETES SCREEN [facility] Start: 2021 FECAL OCCULT BLOOD FECAL OCCULT BLOOD [facility] Start: 2021 LIPID SCREEN LIPID SCREEN [facility] Start: 2021 SIGMOIDOSCOPY SIGMOIDOSCOPY [facility] Start: 11-12-2021 Influenza vaccination [facility] Start: 09-25-2020 COVID-19 VACCINE (2 - Booster for Juanita series) COVID-19 VACCINE (2 - Booster for Juanita series) [facility] Start: 12-29-1995 Urine microalbumin profile DTAP,TDAP,TD (1 - Tdap) [facility] Start: 1994 HEPATITIS C SCREENING HEPATITIS C SCREENING [facility] Start: 1994 HIV SCREENING HIV SCREENING [facility] Start: 1988 Adult depression screening assessment DEPRESSION SCREENING [facility] Start: 1976 HEPATITIS B (1 of 3 - 3-dose series) HEPATITIS B (1 of 3 - 3-dose series) [facility] CBC W Auto Different ial panel - Blood [facility] CBC W Auto Different ial panel - Blood [facility] Estradiol (E2) [Mass/volume] in Serum or Plasma [facility] Lactate dehydrogenas e measurement [facility] Lactate dehydrogenas e measurement [facility] MG Breast - bilatera l Screening [facility] Path report.final Dx Spec [facility] Patient Education ED Laceration Extremity [facility] Work Phone: Patient referral [facility] Work Phone: [facility] Immunizations Immunization Date Immunization Notes Care Provider Fa cility 07-12-2022 tetanus toxoid, redu jl diphtheria toxoid, and acellular pertussis vaccine, adsorbed; Translations: [Boostrix (Tdap)] ANGÉLICA RAMIREZ GAUGER DELIVERY-HOME HOUSEKEEPER [facility] [place] 07-31-2020 SARS-CoV-2 (COVID-19 ) Ad26 vaccine, recombinant ANGÉLICA RAMIREZ GAUGER DELIVERY-HOME HOUSEKEEPER [facility] Comment on above: Result Comment: 2022: [id number] 03-14-2011 tetanus and diphther ia toxoids, adsorbed, preservative free, for adult use (2 Lf of tetanus toxoid and 2 Lf of diphtheria toxoid) Dr. Chelsi Elkins MD Work Phone: [facility] 03-14-2011 tetanus and diphther ia toxoids, adsorbed, preservative free, for adult use (5 Lf of tetanus toxoid and 2 Lf of diphtheria toxoid) ANGÉLICA RAMIREZ GAUGER DELIVERY-HOME HOUSEKEEPER [facility] [place] 02-09-1999 TD(adult) unspecifie d formulation Dr. Chelsi Elkins MD Work Phone: [facility] Payers Date Payer Category Payer Self-pay 2022 Private Health Insurance [id number] 2021 Private Health Insurance BETTYE HANDLEY OAP [id number] 2021-Present [phone] [facility] [id number] [place] [address] Open Access [id number] 2021 Private Health Insurance [id number] 1975 Unknown [id number] 27 1975 Unknown [id number] 27 1976 Unknown [id number] 27 Unknown [id number] Unknown [facility] *DO NOT USE* [id number] Unknown [id number] 62 Unknown [id number] 62 Unknown [id number] [id number] 62 Unknown [id number] [id number] 62 Unknown [id number] [id number] 62 Unknown [id number] [id number] 62 Unknown [id number] [id number] 62 Unknown [id number] [id number] 62 Unknown [id number] [id number] 62 Unknown [id number] 62 Unknown [id number] 62 Social History Date Type Detail Facility Start: 03-05-2013 End: 11-02-2024 Tobacco smoking status NHIS Never smoked tobacco [facility] Work Phone: Start: 03-05-2013 End: 04-14-2022 Tobacco use and exposure Smokeless tobacco non-user [facility] Work Phone: Start: 05-19-2021 End: 04-14-2022 Alcohol intake Current drinker of alcohol (finding) [facility] Start: 06-03-2017 History SDOH Alcohol Comment very rare- 4 glasses of wine a year [facility] Start: 1975 Sex Assigned At Female [facility] Start: 08-30-2021 End: 09-09-2021 Exposure to SARS-CoV-2 (event) Not sure [facility] Start: 03-20-2013 End: 03-06-2023 Tobacco smoking status TXIS Unknown if ever smoked [facility] NEGATED: Highlighted row [facility] Medical Equipment Procedure Code Equipment Code Equipment Origin al Text Equipment Identifier Dates Ligation clip, metallic [id number] FDA Start: 10-06-2022 Ligation clip, metallic [id number] FDA Start: 10-06-2022 Goals Date Patient Goal Desired Activity /State Mental Status Date Assessment Result Facility 10-06-2022 Cognitive function Level Of Cons ciousness Appropriate;Follows Commands;Drowsy [facility] Work Phone: Clinical Notes 05-19-2021 to 11-02-2024 Note Date & Type Note Facility 11-02-2024 Progress note [facility] 11-02-2024 Progress note Note Date/Time November 02, 2024 3:34pm [facility] [address], [address] [place] [address] OFFICE VISIT Date of Service: 11/02/24 MR#: [id number] Acct: [id number] Name: XIOMYQUETA DIOR Rep # : [id number] : 1975 Provider: Dr. 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 Is patient in pain?: No Allergies nalbuphine (From Nubain) Allergy (Severe, Verified 11/02/24 14:38) NUMBNESS Medications ?Medication ?Instructions ?Recorded ?Confirmed ?Type multivitamin 1 tab PO DAILY 01/25/2310/13 History ashwagandha extract 500 mg capsule mg PO 11/02/2410/13 History Post menopausal: No Patient : No : [facility] History Allergic dermatitis COVID COVID toes Herpetic alessio Wears glasses Cancer Arthritis Bruises easily Migraine Dietary lactose intolerance Heartburn during Asthma Non-smoker Hypertension Abnormal mammogram of left breast Surgical History History of lumpectomy (~09/2022) Hx of breast biopsy Hx of colonoscopy Hx of dilation and curettage Family History Mother Colon cancer, Onset Age: 70 Afib Heart disease Hypertension Hyperlipidemia Father Lewy body dementia Diabetes Hypertension Social History (Updated 11/02/24 @ 14:43 by Keya Mcelroy) adopted: No household members: spouse current occupational status: employed 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 pets and animals: Yes Smoking Status: Never smoker Electronic Cigarette Use: not used alcohol intake: current alcohol intake frequency: holidays/special occasions only substance use type: does not use diet: gluten free, lactose free and other caffeine: No what type of physical activity do you participate in: walking frequency: 1-2 times per week seatbelt use: always do you feel safe at home: Yes additional social history: -Stefan History 6 Elective abortions Hx Para 1 Spontaneous abortions Hx # Term Pregnancies Ectopic pregnancies Hx # Pregnancies Multiple births # of living children Past Pregnancies Del. Date Name GA/Weeks Outcome Route Bth Weight Gen Labor Lgth Anesthesia Del Locatn Provider FOB Unknown Jordan (dec at 16) Delivery Date: Last Updated by: Keya To Navi was killed in car accident HPI Encounter for routine gynecological examination Details: The patient is a 48-year-old female presenting with a routine gynecological examination and management of perimenopausal symptoms. She reports experiencing perimenopausal symptoms, including hot flashes and irregular menstrual cycles, which have been ongoing for an unspecified duration. The hot flashes are described as starting with dizziness followed by a sudden feeling of heat, and they occur both during the day and at night, affecting her sleep quality. The patient has a history of breast cancer, for which she is not taking tamoxifen due to Factor V Leiden mutation, which increases her risk of blood clots. She has experienced five miscarriages, which led to the diagnosis of Factor V Leiden mutation. The patient reports weight fluctuations over the past year, with a pattern of losing and gaining weight, maintaining a weight loss of approximately 20 pounds from her highest weight. She attributes her weight management to dietary habits,avoiding dairy, sugar, and wheat, and notes a family history of weight gain at her age. A previous Pap smear showed atypical cells, and a repeat Pap smear is planned for today. Her next mammogram is scheduled for February, and she is under regular follow-up with Dr. Tan every six months. her mother in August last year of colon cancer. Attestation: Documentation on this patient encounter was supported using ambient scribe technology/ voice AI technology. The patient consented to recording for the purpose of documenting the encounter. Provider reviewed content of the generatednote prior to signature. Last PAP: 2022- ascus History of abnormal PAP: yes, ascus pap last year Last mammogram: february. follows with Dr. Tan q 6 months History of abnormal mammogram: yes, h/o breast cancer Colon cancer screening: up to date Other preventative health care screenings:folowed by pcp Coding Level of Care Code Off vis,est,prev 40-64yrs Diagnoses Encounter for routine gynecological examination Z01.419 Assessment and Plan Assessment and Plan (1) Encounter for routine gynecological examination: Plan: Assessment and Plan 48-year-old female with a history of breast cancer presenting with a routine gynecological examination and management of perimenopausal symptoms. The patientexperiences perimenopausal symptoms, including hot flashes and irregular menstrual cycles, which affect her sleep quality. Her history of breast cancer precludes the use of tamoxifen due to Factor V Leiden mutation, which poses a risk for thromboembolic events. Weight management remains a concern, with fluctuations noted over the past year,although she maintains a weight loss of approximately 20 pounds from her highestweight. Dietary habits, including the avoidance of dairy, sugar, and wheat, contribute to her weight management strategy. Preventative care includes a repeat Pap smear today due to previous atypical cells and a scheduled mammogram in February. 1. Perimenopausal Symptoms The patient experiences perimenopausal symptoms, including hot flashes and irregular menstrual cycles, which affect her sleep quality. Non-hormonal optionsfor managing hot flashes were discussed, including gabapentin and clonidine, which are safe for breast cancer survivors. 2. History Of Breast Cancer The patient has a history of breast cancer and is not taking tamoxifen due to Factor V Leiden mutation, which increases her risk of thromboembolic events. Regular follow-up with Dr. Tan is maintained every six months for ongoing monitoring. 3. Factor V Leiden Mutation The patient has Factor V Leiden mutation, which poses a risk for thromboembolic events, and she has experienced five miscarriages related to this condition. No history of blood clots has been reported, and she is not on anticoagulation therapy. 4. Weight Fluctuations The patient reports weight fluctuations over the past year, maintaining a weightloss of approximately 20 pounds from her highest weight. Dietary habits, including the avoidance of dairy, sugar, and wheat, contribute to her weight management strategy. 5. Preventative Care A repeat Pap smear is planned today due to previous atypical cells, and a mammogram is scheduled for February. Plan - Schedule and attend the repeat Pap smear today. - Plan for the mammogram in February as scheduled. - Consider non-hormonal options for managing hot flashes if they worsen. - Maintain current dietary habits to manage weight. 11/02/24 1534 <Electronically signed by Julianna Montejo DO> Date _ Julianna Hsu DO [facility] Signature: Date (if applicable) CC: ~ [facility] Work Phone: 1(959) 645-272908-18-2025 Evaluation note* Diagnosis Onset Date Resolution Status Admit Date Breast cancer, left acute Augus t 2024 8:29am Encounter for routine gynecological examination noneactive November 02, 2024 2:27pm [facility] Work Phone: 1(594) 596-841308-18-2025 [facility] [address] [place] [address] OFFICE VISIT Date of Service: 10/29/24 0831 MR#: [id number] Acct: [id number] Name: QUETA STAUFFER Rep # : [id number] : 1975 From: Raymundo rai DO Age/Sex: 48/F [place] [facility] Status: Signed Intake Vital Signs 06/25/24 15:31 07/09/24 08:04 10/29/24 08:36 Height 5 ft 11 in 5 ft 11 in 5 ft 11 in Weight: 186 lb 184 lb BMI 25.9 25.7 BP 134/76 H 114/76 Blood Pressure Location Rt brachial Rt brachial Position Sitting Sitting Respiration 18 16 Pulse 83 64 Pulse Source Monitor Monitor Temp 98.2 F 98.5 F Temperature Source Temporal Artery Pulse Oximetry (%) 99 98 Oxygen Delivery Method room air room air Intake Visit Reasons: 4 MONTH BREAST Is patient in pain?: No Allergies nalbuphine (From Nubain) Allergy (Severe, Verified 10/29/24 08:35) NUMBNESS Medications ?Medication ?Instructions ?Recorded ?Confirmed ?Type multivitamin 1 tab PO DAILY 01/25/2310/12 History ipratropium bromide 21 mcg (0.03 2 spray intranasal BI D-TID PRN 07/06/24 10/29/24 Rx %) nasal spray postnasal drainage #30 mL PFSH PFSH Medical History Allergic dermatitis COVID COVID toes Herpetic alessio Wears glasses Cancer Arthritis Bruises easily Migraine Dietary lactose intolerance Heartburn during Asthma Non-smoker Hypertension Abnormal mammogram of left breast Home Medications ?Medication ?Instructions ?Recorded ?Last Taken ?Type multivitamin 1 tab PO DAILY 01/25/23 Unkn own History ipratropium bromide 21 mcg (0.03 2 spray intranasal BI D-TID PRN 07/06/24 Unknown Rx %) nasal spray postnasal drainage #30 mL Allergy/AdvReac Type Severity Reaction Status Date / Time nalbuphine (From Nubain) Allergy Severe NUMBNESS Verified 10/29/24 08:35 Family History Mother Colon cancer, Onset Age: 70 Afib Heart disease Hypertension Hyperlipidemia Father Lewy body dementia Diabetes Hypertension Surgical History History of lumpectomy (~09/2022) Hx of breast biopsy Hx of colonoscopy Hx of dilation and curettage Social History adopted: No household members: spouse current occupational status: employed 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 pets and animals: Yes Smoking Status: Never smoker Electronic Cigarette Use: not used alcohol intake: current alcohol intake frequency: holidays/special occasions only substance use type: does not use diet: gluten free, lactose free and other caffeine: No what type of physical activity do you participate in: none frequency: 3-4 times per week seatbelt use: always do you feel safe at home: Yes additional social history: -Stefan Diagnosis: Queta Stauffer is a 48-year-old female diagnosed with pathologic stage IA ([id number] (sn) Mx) grade 1 invasive ductal carcinoma (ER > 95%, ID > 95%, HER2 0+ IHC)of the left medial breast status post left breast diagnostic mammogram/ultrasound (09/20/2022), left breast biopsy (09/25/2019), left breast lumpectomy and sentinel lymph node biopsy (10/06/2022), and evaluation by medicaloncology (11/02/2022). From 12/06/2022 ? 12/27/2022 she completed adjuvant radiation to the left breast. History of Present Illness: 09/20/2022: Patient completed left breast diagnostic mammogram.? This demonstrated a 1.6 Demeter architectural distortion in the left breast at the 11o'clock position middle depth which is confirmed on spot compression and tomosynthesis views, recommend ultrasound.? BI-RADS Category 0 09/20/2022: Left breast ultrasound and left axillary ultrasound were performed.? There is a 7 mm irregular spiculated hypoechoic mass in the left breast at the 11 o'clock position middle depth about 5cm from the nipple which correlates to the mammographic finding.? No lymph nodes are noted in the left axilla.? BI- RADSCategory 4 09/24/2022: Patient completed biopsy of the left breast lesion.? Pathology demonstrated grade 1 invasive ductal carcinoma (ER > 95%, ID > 95%, HER2 0+ IHC) 09/24/2022: Patient completed left breast unilateral diagnostic mammogram which demonstrates that the clip is seen within the upper mid medial aspect of the left breast. 10/06/2022: Patient completed upper inner quadrant left breast lumpectomy and sentinel lymph node biopsy.? Pathology demonstrated grade 1 invasive ductal carcinoma measuring 0.5 x 0.5 x 0.5 cm, there is associated grade 1 DCIS involving 2/10 blocks, margins are negative with the closest margin being1 cm, lymph-vascular invasion is not identified, 7 lymph nodes were obtained and none contained metastatic disease. 11/02/2022: Patient was evaluated by medical oncology.? Oncotype DX score was ordered and found to be 6. From 12/06/2022 ? 12/27/2022: received adjuvant radiation therapy consisting of 4000 cGy delivered to the left whole breast with a simultaneous boost consistingof 4800 cGy delivered to the lumpectomy PTV eval all in 15 fractions. She was treated using a 3D conformal technique in the prone position with 6 and 10 MV photons. 02/28/2023: Patient completed bilateral diagnostic mammogram. This demonstratedno dominant masses or suspicious calcifications. There is evidence of prior lumpectomy in the deep upper slightly medialaspect of the left breast with resultant postoperative deformity. Surgical clips are also noted in the left axillary region. Recommend targeted ultrasound of the right upper outer quadrant of the breast as this is the area of concern for palpable abnormality. 02/28/2023: Right breast ultrasound was performed. There is evidence for mildlydilated ducts in theupper outer quadrant of the right breast with no other abnormalities. Parents category 2. 03/02/2024: Patient completed bilateral screening mammogram. This demonstrated benign findings. Hudson's category 2 Radiation Treatment History: 1) From 12/06/2022 ? 12/27/2022: received adjuvant radiation therapy consisting of 4000 cGy delivered to the left whole breast with a simultaneous boost consisting of 4800 cGy delivered to the lumpectomy PTV eval all in 15 fractions.She was treated using a 3D conformal technique in the prone position with 6 and 10 MV photons. Interval History: Patient returns for routine follow-up approximately 22 months after completing adjuvant radiation therapy to the left breast. She denies having any skin erythema, dryness, tanning, thickening. She denies fatigue. She does report full arm range of motion without tightness or stiffness and denies having any breast or arm discomfort/swelling. Occasional very minor breast discomfort. Shedenies bone pain. She denies cough, shortness of breath, chest pain. She denies headaches, vision changes, focal weakness/numbness, nausea/vomiting. Shecompletes all ADLs without any difficulty and denies having other problems or concerns at this time. Review of Systems: A 12-point review of systems was completed and was negative except for what is noted in the HPI/Interval History and by the nurse. Physical Exam: Weight: 184 lbs ECO KARNOFSKY SCORE: 90% CONSTITUTIONAL: Well-developed, well-nourished, and in no apparent distress. NECK: Supple, no thyromegaly, and non-tender. Trachea midline. No cervical or supraclavicular adenopathy noted. CARDIAC: Regular rate and rhythm. Normal S1, S2. No murmurs, rubs, or gallops. PULMONARY/CHEST: Lungs are clear to auscultation and percussion bilaterally. No wheezes, rhonchi, or crackles noted. No increased work of breathing. BREAST: Bilateral breasts are examined the seated and supine position. Within the left breast thereis no evidence of skin thickening or tanning. Breasts appear mostly symmetrical. There is a well-healed lumpectomy incision in the left breast and a well-healed axillary incision. No palpable nodulesor lesionsare noted in either breast. EXTREMITIES: Full range of motion in all four extremities. No evidence of edema. PSYCHIATRIC: Appropriate mood and affect for the clinical situation. Imaging: As per HPI Laboratory Data: None Assessment & Plan Assessment/Plan (1) Breast cancer, left: QUALIFIERS: Breast location: upper inner quadrant of breast Estrogen receptor status: positive Patient sex: female Qualified Code(s): C50.212 - Malignant neoplasm of upper-inner quadrant of left female breast; Z17.0 - Estrogen receptor positive status [ER+] PLAN: Plan Assessment: Queta Stauffer is a 48-year-old female diagnosed with pathologic stage IA (pT1a pN0 (sn) Mx) grade1 invasive ductal carcinoma (ER > 95%, ID > 95%, HER2 0+ IHC) of the left medial breast status post left breast diagnostic mammogram/ultrasound (09/20/2022), left breast biopsy (09/25/2019), leftbreast lumpectomy and sentinel lymph node biopsy (10/06/2022), and evaluation by medical oncology (11/02/2022). From 12/06/2022 ? 12/27/2022 she completed adjuvant radiation to the left breast. Plan: Patient returns for routine follow-up approximately 22 months after completing adjuvant radiation therapy to the left breast. She does not have any residual toxicity related to treatment. She does not have any signs or symptoms concerning for development of disease progression or metastatic disease. After careful consideration and discussion with medical oncology she has elected to do a more natural approach for reducing estrogen, she does have factor V Leiden and there is some risk for clotting and has decided not to take tamoxifen. For follow-up I recommended a breast exam every 6 months for years 3-5 and resumption of her annual mammography in February 2025. She was instructed to call with any further questions or concerns in the interim. Thank you for allowing me to participate in the management and care of your patient. If I may answer any questions in the interim, please do not hesitate to contact me at any time. Raymundo Tan DO, MS Data Architect Manager, Department of Radiation Oncology [facility] Coding Level of Care Code Off vis,est,level 3 Diagnoses Malignant neoplasm of upper-inner quadrant of left breast in female, estrogen receptor positive C50.212; Z17.0 Breast location: upper inner quadrant of breast Estrogen receptor status: positive Patient sex: female 10/29/24904 DO> Date _ Raymundo Tan DO Cosigner Signature: Date (if applicable) CC: ~ [facility]08-18-2025 Progress note Author Raymundo Tan [facility] Note Date/Time October 29, 2024 9: 05am [id number] [place] [address] OFFICE VISIT Date of Service: 10/29/24830 MR#: [id number] Acct: [id number] Name: QUETA STAUFFER Rep # : [id number] : 1975 From: Raymundo rai DO Age/Sex: 48/F [place] [facility] [place] Status: Signed Intake Vital Signs 06/25/24 15:31 07/09/24 08:04 10/29/24 08:36 Height 5 ft 11 in 5 ft 11 in 5 ft 11 in Weight: 186 lb 184 lb BMI 25.9 25.7 BP 134/76 H 114/76 Blood Pressure Location Rt brachial Rt brachial Position Sitting Sitting Respiration 18 16 Pulse 83 64 Pulse Source Monitor Monitor Temp 98.2 F 98.5 F Temperature Source Temporal Artery Pulse Oximetry (%) 99 98 Oxygen Delivery Method room air room air Intake Visit Reasons: 4 MONTH BREAST Is patient in pain?: No Allergies nalbuphine (From Nubain) Allergy (Severe, Verified 10/29/24 08:35) NUMBNESS Medications ?Medication ?Instructions ?Recorded ?Confirmed ?Type multivitamin 1 tab PO DAILY 01/25/2310/12 History ipratropium bromide 21 mcg (0.03 2 spray intranasal BI D-TID PRN 07/06/24 10/29/24 Rx %) nasal spray postnasal drainage #30 mL PFSH PFSH Medical History Allergic dermatitis COVID COVID toes Herpetic alessio Wears glasses Cancer Arthritis Bruises easily Migraine Dietary lactose intolerance Heartburn during Asthma Non-smoker Hypertension Abnormal mammogram of left breast Home Medications ?Medication ?Instructions ?Recorded ?Last Taken ?Type multivitamin 1 tab PO DAILY 01/25/23 Unkn own History ipratropium bromide 21 mcg (0.03 2 spray intranasal BI D-TID PRN 07/06/24 Unknown Rx %) nasal spray postnasal drainage #30 mL Allergy/AdvReac Type Severity Reaction Status Date / Time nalbuphine (From Nubain) Allergy Severe NUMBNESS Verified 10/29/24 08:35 Family History Mother Colon cancer, Onset Age: 70 Afib Heart disease Hypertension Hyperlipidemia Father Lewy body dementia Diabetes Hypertension Surgical History History of lumpectomy (~09/2022) Hx of breast biopsy Hx of colonoscopy Hx of dilation and curettage Social History adopted: No household members: spouse current occupational status: employed 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 pets and animals: Yes Smoking Status: Never smoker Electronic Cigarette Use: not used alcohol intake: current alcohol intake frequency: holidays/special occasions only substance use type: does not use diet: gluten free, lactose free and other caffeine: No what type of physical activity do you participate in: none frequency: 3-4 times per week seatbelt use: always do you feel safe at home: Yes additional social history: -Stefan Diagnosis: Queta Stauffer is a 48-year-old female diagnosed with pathologic stage IA (qB6qoC6 (sn) Mx) grade 1 invasive ductal carcinoma (ER > 95%, ID > 95%, HER2 0+ IHC)of the left medial breast status post left breast diagnostic mammogram/ultrasound (09/20/2022), left breast biopsy (09/25/2019), left breast lumpectomy and sentinel lymph node biopsy (10/06/2022), and evaluation by medicaloncology (11/02/2022). From 12/06/2022 ? 12/27/2022 she completed adjuvant radiation to the left breast. History of Present Illness: 09/20/2022: Patient completed left breast diagnostic mammogram.? This demonstrated a 1.6 Demeter architectural distortion in the left breast at the 11o'clock position middle depth which is confirmed on spot compression and tomosynthesis views, recommend ultrasound.? BI-RADS Category 0 09/20/2022: Left breast ultrasound and left axillary ultrasound were performed.? There is a 7 mm irregular spiculated hypoechoic mass in the left breast at the 11 o'clock position middle depth about 5 cm from the nipple which correlates to the mammographic finding.? No lymph nodes are noted in the left axilla.? BI-RADSCategory 4 09/24/2022: Patient completed biopsy of the left breast lesion.? Pathology demonstrated grade 1 invasive ductal carcinoma (ER > 95%, ID > 95%, HER2 0+ IHC) 09/24/2022: Patient completed left breast unilateral diagnostic mammogram which demonstrates that the clip is seen within the upper mid medial aspect of the left breast. 10/06/2022: Patient completed upper inner quadrant left breast lumpectomy and sentinel lymph node biopsy.? Pathology demonstrated grade 1 invasive ductal carcinoma measuring 0.5 x 0.5 x 0.5 cm, there is associated grade 1 DCIS involving 2/10 blocks, margins are negative with the closest margin being 1 cm, lymph-vascular invasion is not identified, 7 lymph nodes were obtained and none contained metastatic disease. 11/02/2022: Patient was evaluated by medical oncology.? Oncotype DX score was ordered and found to be 6. From 12/06/2022 ? 12/27/2022: received adjuvant radiation therapy consisting of 4000 cGy delivered to the left whole breast with a simultaneous boost consistingof 4800 cGy delivered to the lumpectomy PTV eval all in 15 fractions. She was treated using a 3D conformal technique in the prone position with 6 and 10 MV photons. 02/28/2023: Patient completed bilateral diagnostic mammogram. This demonstratedno dominant masses or suspicious calcifications. There is evidence of prior lumpectomy in the deep upper slightly medial aspect of the left breast with resultant postoperative deformity. Surgical clips are also noted in the left axillary region. Recommend targeted ultrasound of the right upper outer quadrant of the breast as this is the area of concern for palpable abnormality. 02/28/2023: Right breast ultrasound was performed. There is evidence for mildlydilated ducts in the upper outer quadrant of the right breast with no other abnormalities. Parents category 2. 03/02/2024: Patient completed bilateral screening mammogram. This demonstrated benign findings. Hudson's category 2 Radiation Treatment History: 1) From 12/06/2022 ? 12/27/2022: received adjuvant radiation therapy consisting of 4000 cGy delivered to the left whole breast with a simultaneous boost consisting of 4800 cGy delivered to the lumpectomy PTV eval all in 15 fractions.She was treated using a 3D conformal technique in the prone position with 6 and 10 MV photons. Interval History: Patient returns for routine follow-up approximately 22 months after completing adjuvant radiation therapy to the left breast. She denies having any skin erythema, dryness, tanning, thickening. She denies fatigue. She does report full arm range of motion without tightness or stiffness and denies having any breast or arm discomfort/swelling. Occasional very minor breast discomfort. Shedenies bone pain. She denies cough, shortness of breath, chest pain. She denies headaches, vision changes, focal weakness/numbness, nausea/vomiting. Shecompletes all ADLs without any difficulty and denies having other problems or concerns at this time. Review of Systems: A 12-point review of systems was completed and was negative except for what is noted in the HPI/Interval History and by the nurse. Physical Exam: Weight: 184 lbs ECO KARNOFSKY SCORE: 90% CONSTITUTIONAL: Well-developed, well-nourished, and in no apparent distress. NECK: Supple, no thyromegaly, and non-tender. Trachea midline. No cervical or supraclavicular adenopathy noted. CARDIAC: Regular rate and rhythm. Normal S1, S2. No murmurs, rubs, or gallops. PULMONARY/CHEST: Lungs are clear to auscultation and percussion bilaterally. No wheezes, rhonchi, or crackles noted. No increased work of breathing. BREAST: Bilateral breasts are examined the seated and supine position. Within the left breast there is no evidence of skin thickening or tanning. Breasts appear mostly symmetrical. There is a well-healed lumpectomy incision in the left breast and a well-healed axillary incision. No palpable nodules or lesionsare noted in either breast. EXTREMITIES: Full range of motion in all four extremities. No evidence of edema. PSYCHIATRIC: Appropriate mood and affect for the clinical situation. Imaging: As per HPI Laboratory Data: None Assessment & Plan Assessment/Plan (1) Breast cancer, left: QUALIFIERS: Breast location: upper inner quadrant of breast Estrogen receptor status: positive Patient sex: female Qualified Code(s): C50.212 - Malignant neoplasm of upper-inner quadrant of left female breast; Z17.0 - Estrogen receptor positive status [ER+] PLAN: Plan Assessment: Queta Stauffer is a 48-year-old female diagnosed with pathologic stage IA (pT1a pN0 (sn) Mx) grade 1 invasive ductal carcinoma (ER > 95%, ID > 95%, HER2 0+ IHC) of the left medial breast status post left breast diagnostic mammogram/ultrasound (09/20/2022), left breast biopsy (09/25/2019), left breast lumpectomy and sentinel lymph node biopsy (10/06/2022), and evaluation by medical oncology (11/02/2022). From 12/06/2022 ? 12/27/2022 she completed adjuvant radiation to the left breast. Plan: Patient returns for routine follow-up approximately 22 months after completing adjuvant radiation therapy to the left breast. She does not have any residual toxicity related to treatment. She does not have any signs or symptoms concerning for development of disease progression or metastatic disease. After careful consideration and discussion with medical oncology she has elected to do a more natural approach for reducing estrogen, she does have factor V Leiden and there is some risk for clotting and has decided not to take tamoxifen. For follow-up I recommended a breast exam every 6 months for years 3-5 and resumption of her annual mammography in February 2025. She was instructed to call with any further questions or concerns in the interim. Thank you for allowing me to participate in the management and care of your patient. If I may answer any questions in the interim, please do not hesitate to contact me at any time. Raymundo Tan DO, MS Data Architect Manager, Department of Radiation Oncology [facility] Coding Level of Care Code Off vis,est,level 3 Diagnoses Malignant neoplasm of upper-inner quadrant of left breast in female, estrogen receptor positive C50.212; Z17.0 Breast location: upper inner quadrant of breast Estrogen receptor status: positive Patient sex: female 10/29/24904 <Electronically signed by Raymundo Tan DO> Date _ Raymundo Tan DO Cosigner Signature: Date (if applicable) CC: ~ [facility] [employer] Work Phone: 1(828) 578-356804-25-2025 Evaluation note* Diagnosis Onset Date Resolution Status Admit Date Acute sinusitis acute June 4:13pm Acute sinusitis acute June 7:58am Breast cancer acute July 09, 2024 7:58am Factor V Leiden mutation chronic July 09, 2024 7:58am Screening for depression noneactive July 09, 2024 7:58am Immunization due noneactive July 092024 7:58am Annual physical exam noneactive Apri l 2024 7:58am Mixed hyperlipidemia noneactive Apri l 2024 7:58am Breast cancer, left acute Augus 2024 8:29am [facility] Work Phone: 1(402) 347-656304-25-2025 Evaluation note* Diagnosis Onset Date Resolution Status Admit Date Acute sinusitis acute June 4:13pm Acute sinusitis acute June 7:58am Breast cancer acute July 09, 2024 7:58am Factor V Leiden mutation chronic July 09, 2024 7:58am Screening for depression noneactive July 09, 2024 7:58am Immunization due noneactive July 092024 7:58am Annual physical exam noneactive Apri 2024 7:58am Mixed hyperlipidemia noneactive Apri 2024 7:58am Breast cancer, left acute Augus 2024 8:29am Encounter for routine gynecological examination noneactive November 02, 2024 2:27pm [facility] [employer] [facility] Work Phone: 1(338) 277-513104-14-2025 Evaluation note* Diagnosis Onset Date Resolution Status Admit Date Breast cancer, left acute June 25, 2024 3:27pm Acute sinusitis acute June 4:13pm Acute sinusitis acute June 7:58am Breast cancer acute July 09, 2024 7:58am Factor V Leiden mutation chronic July 09, 2024 7:58am Screening for depression noneactive July 09, 2024 7:58am Immunization due noneactive July 092024 7:58am Annual physical exam noneactive Apri l 2024 7:58am Mixed hyperlipidemia noneactive Apri l 2024 7:58am [facility] Work Phone: 1(655) 629-759412-24-2023 Discharge summary Author Rock Sheehan [facility] March 06, 2023 4:37pm Note Date/Time March 06, 2023 4:06pm [facility] Medical Records Department [address] [place] [address] Emergency Department Summary 03/06/23 MR#: [id number] Acct: [id number] Name: QUETA STAUFFER Rep #:[id number] : 1975 47 From: Rock Hernandez PCP: Angélica Ramirez NP Status:PRE ER Location: ED HPI History of Present Illness Chief Complaint: Laceration PFSH PFSH Medical History Abnormal mammogram of left breast Arthritis Asthma Bruises easily Cancer Dietary lactose intolerance Heartburn during Hypertension Migraine Non-smoker Wears glasses Home Medications multivitamin 1 tab PO DAILY 01/25/23 [History Last Taken Unknown] Allergy/AdvReac Type Severity Reaction Status Date / Time nalbuphine [From Nubain] Allergy Severe NUMBNESS Verified 03/06/23 15:59 Family History Mother Colon cancer Surgical History History of lumpectomy (~09/2022) Hx of breast biopsy Hx of colonoscopy Hx of dilation and curettage Social History (Updated 02/25/23 @ 09:19 by Keya Mcelroy) Smoking Status: Never smoker alcohol intake: never substance use type: does not use caffeine: No what type of physical activity do you participate in: none seatbelt use: always do you feel safe at home: Yes additional social history: -Stefan EXAM Physical Exam Const Vital Signs: 03/06/23 15:59 Temperature 97.9 F Temperature Source Temporal Pulse Rate 60 Respiratory Rate 16 Blood Pressure 124/77 H Blood Pressure Mean 92 Pulse Ox 98 Oxygen Delivery Method Room Air MDM MDM MDM Narrative Medical decision making narrative: HISTORY OF PRESENT ILLNESS: 47-year-old female presents with laceration to right pinky finger. REVIEW OF SYSTEMS: Pertinent positives: Laceration Pertinent negatives: Loss of sensation PHYSICAL EXAM: Nursing triage notes reviewed, Vital signs reviewed Constitutional: please see mdm HENT: MMM Eyes: Pupils equal round and reactive to light, Extraocular muscles intact Neck: No stridor, no JVD, full neck ROM Lungs: Clear to auscultation, No wheezing or rales. No increased work of breathing, no conversational dyspnea, no accessory muscle use, no nasal flaring. No respiratory distress noted Heart: Regular rate and rhythm, No murmurs, No rubs and No gallops, 2+ distal pulses (radial, femoral, posterior tibial) in all extremities Abdomen: Soft, there is no tenderness, rigidity, rebound or guarding, no obviousperitoneal signs, no palpable pulsatile abdominal masses, no auscultated abdominal bruit : No CVAT Extremities: No edema, intact Neuro: intact 5/5 strength with ok sign (median), intact finger abduction (ulnar) intact wrist extension (radial n). Intact sensation in the radial, ulnar, and median nerve distributions. Skin: Small approximately 0.5 cm linear laceration noted to the distal tip of the right fifth digit MEDICAL DECISION MAKING: Chief Complaint: Finger laceration [facility] Narrative: The patient was hemodynamically stable, afebrile, nontoxic-appearing. Exam without foreign bodies, no tendon involvement. The patient suffered lacerations to the right distal fifth digit On exam there was no evidence of foreign bodies. There was no evidence of neurovascular injury. Patient had a normal distal vascular exam, and had intactROM and sensation. There was also no evidence of tendon injury, with normal distal full range of motion, flexion, extension, abduction, abduction. There isno evidence of local joint space involvement at this time. Wound care applied (irrigation and/or local cleansing solution). Laceration repair was then performed please see procedure note. The patient was given signs and symptoms warnings for infection, such as increasing pain, redness, swelling, associated heat, pus or fever. Patient was given instructions for timely follow-up for removal. Patient agreed with the plan of care Procedure: Laceration repair. The procedure was performed by myself. Indication: Wound repair Risks and benefits: risks, benefits and alternatives were discussed Consent: Consent was obtained. Wound Details:0.5 cm linear laceration noted to the distal tip of the Fifth digit on the palmar surface. Foreign bodies noted, no tenderness involvement. Anesthesia: Digital block with 1% lidocaine Wound prep: Patient was prepped and draped in the usual sterile fashion. Tetanus: [Up to date Irrigation Solution: Saline Wound Preparation: Irrigated with tap water at home. Clinical chlorhexidine here. The wound was explored to its base in a bloodless field. Procedure Description: Placed 1, 5-0 Chromic Gut absorbable sutures with close approximation Patient tolerated the procedure well with no immediate complications The patient and/or family, caregivers express understanding. The patient and/or family, caregivers agrees with the plan. Shared decision making: I will have a discussion with the patient and or visitors regarding risk/benefits of further testing or admission. They will be made aware of of the risk/benefits inherent in this decision they will be given the opportunity to voice understanding. Total critical care time today provided was at least 0 minutes. This excludes separately billable procedures. Critical care time (if documented) is secondary to the patient having high probability of clinically significant/life threatening deterioration in the patient's condition which required my urgent intervention. Impression: 1. Finger laceration Dispo: discharge Discharge Plan Triage Chief Complaint: Laceration ED Provider: Rock Sheehan Dx/Rx/DC Orders Prescriptions: No Action multivitamin Tablet 1 tab PO DAILY Primary Care Provider: Angélica Ramirez NP Referrals: Angélica Ramirez NP, [facility]ENE[facility] STACKER-C [Primary Care Provider] - What to do if you have Problems For any increased pain, shortness of breath, bleeding, nausea or vomiting, chestpain, or any unexpected problems, contact your Primary Care Provider. Call [facility] ([phone]) or report to the closest Emergency Room. Call 911 if necessary. 03/06/23 1637 <Electronically signed by Rock Sheehan DO> Cosigner Signature (if applicable): CC: Angélica Ramirez NP ~ Signed [facility] Work Phone: [phone] 504-596112-15-2023 NotePap Smear Specimen AdequacyDecember 2022 5:10pmComment.Satisfactory for evaluation. Endocervical and/or squamous metaplasticcells (endocervical component)are present.[facility] INTERFACED A#[id number] Health SpringfieldComment on above:Satisfactory for evaluation. Endocervical and/or squamous metaplasticcells (endocervical component)are present.02-25-2023 NotePap Smear Specimen AdequacyDececlearsky rehabilitation hospital [facility] 2022 5:10pmComment.Satisfactory for evaluation. Endocervical and/or squamous metaplasticcells (endocervical component)are present.[facility] INTERFACED A#[id number] Christ HospitalComment on above:Satisfactory for evaluation. Endocervical and/or squamous metaplasticcells (endocervical component)are present.09-20-2022 Note ORIGINAL FROM: ANDREW [address] [address] PROCEDURE FOR: QUETA STAUFFER [address] [facility] [place] [address] Home: PID#: [id number] Exam#: [id number] : 1975 Age: 46 TO: ANGÉLICA RAMIREZ APRN [facility] [address] [facility] [address] [place], [place] [address] Fax: NO FAX EXAMINATION: ULTRASOUND OF THE LEFT BREAST AND AXILLA 09/20/2022 10:04 am TECHNIQUE: Color flow and real-time targeted ultrasound of the left breast 11 o'clock and left axilla were performed. COMPARISON: 09/20/2022, 09/06/2022, 09/09/2021, 05/26/2021, 06/20/2017 HISTORY: ORDERING SYSTEM PROVIDED HISTORY: Reason for Exam: abnormal mammo Architectural distortion left breast 11 o'clock FINDINGS: There is a 7 mm irregular spiculated hypoechoic mass in the left breast at 11 o'clock middle depth 5 cm from the nipple. This correlates with the mammographic finding. There is no vascularity present. Normal lymph nodes are seen in the left axilla. IMPRESSION: The 7 mm irregular mass in the left breast at 11 o'clock appears suspicious for malignancy. An ultrasound guided biopsy is recommended. BIRADS: MAMMOGRAM BI-RADS: 4: Suspicious abnormality RECALL: immediate RECALL TYPE: Biopsy followup LETTER SENT: Biopsy Recommended BI-RADS 4 and 5 Interpreted by: Juan Luis Block MD Preliminary Report By: Juan Luis Block MD Electronically signed By Juan Luis Block MD Dictated Date: 09/20/2022 10:23:17 AM Prelim Date: 09/20/2022 11:29:44 AM Sign Date: 09/20/2022 11:29:44 AM Ordering Provider: ANGÉLICA RAMIREZ CLINICAL: ARCHITECTURAL DISTORTION LEFT BREAST. Traffic Chief: MAYNOR LEBLANC RT,RDMS,RVT,RDCS letter sent: Biopsy Recommended BI-RADS 4 and 5 Ultrasound BI-RADS: 4 Suspicious for malignancy [facility]07-10-2023 Note ORIGINAL FROM: [address] [address] PROCEDURE FOR: QUETA STAUFFER [address] [facility] [place] [address] Home: PID#: [id number] Exam#: [id number] : 1975 Age: 46 TO: ANGÉLICA RAMIREZ GAUGER DELIVERY [facility] [address] [facility] [address] [place], [place] [address] Fax: NO FAX EXAMINATION: DIAGNOSTIC DIGITAL LEFT BREAST MAMMOGRAM WITH TOMOSYNTHESIS, 09/20/2022 9:14 am TECHNIQUE: Diagnostic mammography of the left breast was performed with tomosynthesis. 2D standard and 3D tomosynthesis combination imaging performed through the left breast. Computer aided detection was utilized in the interpretation of this exam. Current study was also evaluated with a Computer Aided Detection (CAD) system. COMPARISON: 09/06/2022, 09/09/2021, 05/26/2021, 06/20/2017 HISTORY: ORDERING SYSTEM PROVIDED HISTORY: Reason for Exam: Abnormal mammogram Architectural distortion left breast 11 o'clock FINDINGS: BREAST DENSITY: Heterogeneously dense There is a 1.6 cm architectural distortion in the left breast at 11 o'clock middle depth. This is confirmed on additional spot compression tomosynthesis views. No other significant masses, calcifications, or other findings. IMPRESSION: The 1.6 cm architectural distortion in the left breast at 11 o'clock appears indeterminate. A left breast ultrasound will be performed today and reported separately. BIRADS: MAMMOGRAM BI-RADS: 0: Needs addl evaluation RECALL: immediate RECALL TYPE: Left US LETTER SENT: Abnormal-Needs additional work up BI-RADS 0 Interpreted by: Juan Luis Block MD Preliminary Report By: Juan Luis Block MD Electronically signed By Juan Luis Block MD Dictated Date: 09/20/2022 9:57:31 AM Prelim Date: 09/20/2022 10:03:01 AM Sign Date: 09/20/2022 10:03:01 AM Ordering Provider: MERISSA WADE CLINICAL: ARCHITECTURAL DISTORTION LEFT BREAST. Traffic Chief: MAYNOR LEBLANC RT,RDMS,RVT,RDCS letter sent: Biopsy Recommended BI-RADS 4 and 5 Ultrasound BI-RADS: 4 Suspicious for malignancy [facility]07-10-2023 Note ORIGINAL FROM: [address] [address] PROCEDURE FOR: QUETA STAUFFER [address] [place] [address] Home: PID#: [id number] Exam#: [id number] : 1975 Age: 46 TO: ANGÉLICARyan RAMIREZ GAUGER DELIVERY [facility] [address] [place] [phone] Fax: NO FAX EXAMINATION: ULTRASOUND OF THE LEFT BREAST AND AXILLA 09/20/2022 10:04 am TECHNIQUE: Color flow and real-time targeted ultrasound of the left breast 11 o'clock and left axilla were performed. COMPARISON: 09/20/2022, 09/06/2022, 09/09/2021, 05/26/2021, 06/20/2017 HISTORY: ORDERING SYSTEM PROVIDED HISTORY: Reason for Exam: abnormal mammo Architectural distortion left breast 11 o'clock FINDINGS: There is a 7 mm irregular spiculated hypoechoic mass in the left breast at 11 o'clock middle depth 5 cm from the nipple. This correlates with the mammographic finding. There is no vascularity present. Normal lymph nodes are seen in the left axilla. IMPRESSION: The 7 mm irregular mass in the left breast at 11 o'clock appears suspicious for malignancy. An ultrasound guided biopsy is recommended. BIRADS: MAMMOGRAM BI-RADS: 4: Suspicious abnormality RECALL: immediate RECALL TYPE: Biopsy followup LETTER SENT: Biopsy Recommended BI-RADS 4 and 5 Interpreted by: Juan Luis Block MD Preliminary Report By: Juan Luis Block MD Electronically signed By Juan Luis Block MD Dictated Date: 09/20/2022 10:23:17 AM Prelim Date: 09/20/2022 11:29:44 AM Sign Date: 09/20/2022 11:29:44 AM Ordering Provider: ANGÉLICA RAMIREZ CLINICAL: ARCHITECTURAL DISTORTION LEFT BREAST. Traffic Chief: MAYNOR LEBLANC RT,RDMS,RVT,RDCS letter sent: Biopsy Recommended BI-RADS 4 and 5 Ultrasound BI-RADS: 4 Susp[facility] for malignancy[facility] Note ORIGINAL FROM: [address] [address] PROCEDURE FOR: QUETA STAUFFER [address] [place] [address] Home: PID#: [id number] Exam#: [id number] : 1975 Age: 46 TO: ANGÉLICA RAMIREZ GAUGER DELIVERY [facility] [address] [facility] [address] [place] [phone] Fax: NO FAX EXAMINATION: DIAGNOSTIC DIGITAL LEFT BREAST MAMMOGRAM WITH TOMOSYNTHESIS, 09/20/2022 9:14 am TECHNIQUE: Diagnostic mammography of the left breast was performed with tomosynthesis. 2D standard and 3D tomosynthesis combination imaging performed through the left breast. Computer aided detection was utilized in the interpretation of this exam. Current study was also evaluated with a Computer Aided Detection (CAD) system. COMPARISON: 09/06/2022, 09/09/2021, 05/26/2021, 06/20/2017 HISTORY: ORDERING SYSTEM PROVIDED HISTORY: Reason for Exam: Abnormal mammogram Architectural distortion left breast 11 o'clock FINDINGS: BREAST DENSITY: Heterogeneously dense There is a 1.6 cm architectural distortion in the left breast at 11 o'clock middle depth. This is confirmed on additional spot compression tomosynthesis views. No other significant masses, calcifications, or other findings. IMPRESSION: The 1.6 cm architectural distortion in the left breast at 11 o'clock appears indeterminate. A left breast ultrasound will be performed today and reported separately. BIRADS: MAMMOGRAM BI-RADS: 0: Needs addl evaluation RECALL: immediate RECALL TYPE: Left US LETTER SENT: Abnormal-Needs additional work up BI-RADS 0 Interpreted by: Juan Luis Block MD Preliminary Report By: Juan Luis Block MD Electronically signed By Juan Luis Block MD Dictated Date: 09/20/2022 9:57:31 AM Prelim Date: 09/20/2022 10:03:01 AM Sign Date: 09/20/2022 10:03:01 AM Ordering Provider: MERISSA WADE CLINICAL: ARCHITECTURAL DISTORTION LEFT BREAST. Traffic Chief: MAYNOR LEBLANC RT,RDMS,RVT,RDCS letter sent: Biopsy Recommended BI-RADS 4 and 5 Ultrasound BI-RADS: 4 Suspicious for malignancy[facility] Note. MICRO - Microbiology PROCEDURE: Urine Culture [*1] SOURCE: Urine, Clean Catch BODY SITE: COLLECTED DATE/TIME: 09/07/2022 18:48 EDT RECEIVED DATE/TIME: 09/08/2022 13:41 EDT START DATE/TIME: 09/08/2022 13:42 EDT FREE TEXT SOURCE: FINAL REPORTS Final Report [] Verified Date/Time/Personnel: 09/09/2022 10:45 EDT 50,000 - 100,000 cfu/ml Multiple bacterial morphotypes present. Probable Contamination. Suggest recollection if clinically indicated. Performing Locations *1: This test was performed at: [address], [facility] , [facility] ([place])04-14-2022 NoteHNO ID: [id number] Author: Leonid Ch MD Service: ? Author Type: Physician Type: Progress Notes Filed: 04/14/2022 12:32 PM Note Text: Patient presents with: left index finger pain: X 2 months HPI: Skin Lesion: Location: left index finger pad Duration: noticed while after getting cactus needles in the finger about 2 months ago Pruritis/Pain: tender, sharp pain with pressure Change: NO Drainage/blister/pustule/ulceration: red with callus, no drainage, no fevers/chills/malaise Treatment: epsom soak, peroxide, antibiotic ointment, picked at. Not much treatment recently. MEDICATIONS: No prescriptions on file. ALLERGIES: ALLERGIES Allergen Reactions Seasonal Allergies Intolerance VITALS: BP 132/82 Pulse 73 Temp 36.6 ?C (97.8 ?F) (Tympanic) Resp 16 Wt 92.1 kg (203 lb) LMP 05/10/2021 SpO2 99% BMI 28.31 kg/m? PE: Pleasant, in no acute distress. Left hand dominant. Finger: left index. 2 keratotic calluses (2 and 3mm) distal pad. ASSESSMENT/PLAN: 1. Skin lesion of hand - ICD9: 709.9, ICD10: L98.9 The keratotic surface was paired down using a #15 scalpel revealing slightly translucence spherical cores below. Suspect verruca vulgaris. [place] needle foreign body is still in her differential. No current signs of infection. - CONSULT TO DERMATOLOGY. She may also consider OTC salicylic acid treatment. Leonid Ch [facility]02-01-2023 History of Present illness Narrative* Leonid Ch MD - 04/14/2022 11:55 AM EST Patient presents with: left index finger pain: X 2 months HPI: Skin Lesion: Location: left index finger pad Duration: noticed while after getting cactus needles in the finger about 2 months ago Pruritis/Pain: tender, sharp pain with pressure Change: NO Drainage/blister/pustule/ulceration: red with callus, no drainage, no fevers/chills/malaise Treatment: epsom soak, peroxide, antibiotic ointment, picked at. Not much treatment recently. MEDICATIONS: No prescriptions on file. ALLERGIES: ALLERGIES Allergen Reactions Seasonal Allergies Intolerance VITALS: BP 132/82 Pulse 73 Temp 36.6 C (97.8 F) (Tympanic) Resp 16 Wt 92.1 kg (203 lb) LMP 05/10/2021 SpO2 99% BMI 28.31 kg/m PE: Pleasant, in no acute distress. Left hand dominant. Finger: left index. 2 keratotic calluses (2 and 3mm) distal pad. ASSESSMENT/PLAN: 1. Skin lesion of hand - ICD9: 709.9, ICD10: L98.9 The keratotic surface was paired down using a #15 scalpel revealing slightly translucence sphericalcores below. Suspect verruca vulgaris. [place] needle foreign body is still in her differential. No current signsof infection. - CONSULT TO DERMATOLOGY. She may also consider OTC salicylic acid treatment. Leonid Ch MD [facility] NoteHNO ID: [id number] Author: RT Lily(R) Service: ? Author Type: Technologist Type: Progress Notes Filed: 09/09/2021 8:53 AM Note Text: Radiology Service Progress Note PATIENT NAME: Queta Stauffer DATE OF SERVICE: September 09, 2021 TIME: 8:52 AM PATIENT IDENTITY VERIFICATION COMPLETED USING TWO (2) IDENTIFIERS: Name and Date of confirmed by patient verbally. FALL SCREENING: Has the patient had 2 falls in the last year or 1 fall with injury or currently using an Ambulatory Assistive Device (Walker, Cane, Wheelchair, Crutches, etc.)? No PATIENT GENDER DATA: Female. status: : No status: NO. PATIENT RELEVANT IMPLANT DATA REVIEWED: Not Applicable RADIOLOGY DEPARTMENT: Mammography PERIPHERAL IV DATA: Not applicable SIGNED BY: RT Lily(R) September 09, 2021 8:52 [facility]06-29-2022 History of Present illness Narrative* HOMA BautistaR) - 09/09/2021 9:00 AM EDT Radiology Service Progress Note PATIENT NAME: Queta Stauffer DATE OF SERVICE: September 09, 2021 TIME: 8:52 AM PATIENT IDENTITY VERIFICATION COMPLETED USING TWO (2) IDENTIFIERS: Name and Date of confirmedby patient verbally. FALL SCREENING: Has the patient had 2 falls in the last year or 1 fall with injury or currently using an Ambulatory Assistive Device (Walker, Cane, Wheelchair, Crutches, etc.)? No PATIENT GENDER DATA: Female. status: : No status: NO. PATIENT RELEVANT IMPLANT DATA REVIEWED: Not Applicable RADIOLOGY DEPARTMENT: Mammography PERIPHERAL IV DATA: Not applicable SIGNED BY: RT Lily(Dejuan) September 09, 2021 8:52 AM documented in this encounterMart[facility]erry [facility]03-15-2022 NoteHNO ID: [id number] Author: HEIKE Bautista) Service: ? Author Type: Technologist Type: Progress Notes Filed: 05/26/2021 4:36 PM Note Text: Radiology Service Progress Note PATIENT NAME: Queta Stauffer DATE OF SERVICE: May 26, 2021 TIME: 4:35 PM PATIENT IDENTITY VERIFICATION COMPLETED USING TWO (2) IDENTIFIERS: Name and Date of confirmed by patient verbally. FALL SCREENING: Has the patient had 2 falls in the last year or 1 fall with injury or currently using an Ambulatory Assistive Device (Walker, Cane, Wheelchair, Crutches, etc.)? No PATIENT GENDER DATA: Female. status: : No status: NO. PATIENT RELEVANT IMPLANT DATA REVIEWED: Not Applicable RADIOLOGY DEPARTMENT: Mammography PERIPHERAL IV DATA: Not applicable SIGNED BY: RT Lily(Dejuan) May 26, 2021 4:35 [facility]03-08-2022 NoteHNO ID: [id number] Author: Patito Calabrese APRN.CNP Service: ? Author Type: Nurse Practitioner Type: Progress Notes Filed: 05/19/2021 3:49 PM Note Text: Queta is a 45 year old who presents for an annual gynecologic exam without complaints. Menses: cycles every 25-30 days and 5 days of flow. 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 PAST SURGICAL HISTORY Procedure Laterality Date - COLONOSCOPY 2014 - DANDC, DIAG AND/OR THERAPEUTIC 2007 FAMILY HISTORY Problem Relation Age of Onset - Colon Cancer Mother - Hypertension Mother - Hyperlipidemia Mother - other (Other) Mother Mother had a growth removed from breast, was not cancerous. - Hypertension Father - Hyperlipidemia Father - other (Dementia) Father Lewy Body - Hyperlipidemia Brother - Hypertension Brother - Heart Maternal Grandmother Quadruple bipass surgery - Heart Maternal Grandfather - Arthritis Paternal Grandmother SOCIAL HISTORY Social History Tobacco Use - Smoking status: Never Smoker - Smokeless tobacco: Never Used Vaping Use - Vaping Use: Never used Substance Use Topics - Alcohol use: Yes Comment: very rare- 4 glasses of wine a year - Drug use: No REVIEW OF SYSTEMS Abdomen: No abdominal pain, nausea, vomiting, diarrhea, or constipation. No bloating, early satiety, indigestion, or increased flatulence. Bladder: No dysuria, gross hematuria, urinary frequency, urinary urgency, or incontinence. Breast: No breast lumps, nipple d/c, overlying skin changes, redness or skin retraction. Allergies and current medication updated:Yes EXAM: BP 118/78 Ht 5' 11 (1.80m) Wt 198 lb 3.2 oz (89.9kg) LMP 05/10/2021 BMI 27.66 kg/(m2). GENERAL: pleasant, female in no apparent distress HEENT: Normocephalic, atraumatic, mucus membranes moist and no lesions NECK: Supple, full range of motion, no adenopathy and thyroid normal DERMATOLOGY: Normal, without lesions, non-icteric and non-hirsute BREAST: soft, non-tender, symmetric, no dominant mass, normal nipple-areolar complex, no lymphadenopathy and no nipple discharge CHEST: Normal inspiratory effort ABDOMEN: soft, non-tender and no masses PELVIC: external genitalia normal, normal Bartholin's glands, urethra, [place]'s glands, no vulvar lesions, good vaginal support, physiologic discharge present, normal appearing perineal body and perianal region, +multiple red spot on left side of cervix BIMANUAL: uterus normal size, shape and consistency, no adnexal masses, non-tender and no cervical motion tenderness RECTOVAGINAL: deferred. NEURO: alert and oriented x3,exam grossly non-focal EXTREMITIES: normal ASSESSMENT/PLAN: 1) Health maintenance: Pap done with HPV. Mammogram ordered. Nutrition, exercise and routine health maintenance exams reviewed. Calcium/Vitamin D supplementation information provided. 2) Contraception: none. Contraceptive options reviewed and information provided. 3) STD screening: Declined STD check. 4) Follow up one year or sooner as needed Patito Calabrese APRN.CNPCleveland Clinic [facility]on [facility] + Plan note Future Appointments Appointment Date:09/07/2022 07:30:00 AM Scheduled Provider:ANGÉLICA RAMIREZ Location:[facility] Appointment Type: Acute Appointment Date:07/15/2023 07:00:00 AM Scheduled Provider:ANGÉLICA RAMIREZ Location:[facility] Appointment Type:[facility] [address] [employer] Central[facility] + Plan note Future Appointments Appointment Date:07/15/2023 07:00:00 AM Scheduled Provider:ANGÉLICA RAMIREZ Location:[facility] Appointment Type:[facility] [address] evaluation note* Diagnosis Abnormal mammogram Abnormal mammogram, unspecified documented in this encounter [facility] note* Diagnosis Skin lesion of hand- Primary Unspecified disorder of skin and subcutaneous tissue documented in this encounter [facility] noteNo assessment information availableWThe Christ Hospital Work Phone: evaluation note* Diagnosis Onset Date Resolution Status Abnormal mammogram of left breast acute Breast cancer [facility] Work Phone: evaluation note* Diagnosis Onset Date Resolution Status Abnormal mammogram of left breast acute Breast cancer acute Breast cancer, left acute Breast cancer, left acute Breast cancer, [facility] acute [facility] Work Phone: evaluation note* Diagnosis Onset Date Resolution Status Breast cancer, left acute Breast cancer, left acute Breast cancer, left acute Factor V Leiden mutation chr onic Breast cancer, left acute Breast cancer, left acute Breast cancer, left acute Breast cancer, left acute Breast cancer, left acute Factor V Leiden mutation chr onic Breast cancer, left acute Breast cancer, left acute Factor V Leiden mutation chr onic Well woman exam with routine gynecological exam acute [facility] Work Phone: Evaluation note* Diagnosis Onset Date Resolution Status Breast cancer, left acute Breast cancer, left acute Breast cancer, left acute Breast cancer, left acute Factor V Leiden mutation chr onic Breast cancer, left acute Breast cancer, left acute Factor V Leiden mutation chr onic Well woman exam with routine gynecological exam [facility] Work Phone: Hospital course Narrative No data available for this section [facility] Hospital Discharge instructions No data available for this section [facility] Hospital Discharge instructionsAmbulatory Orders* Fast Pass: Oncology Referral [facility] Location: None Selected [facility] Work Phone: Hospital Discharge instructions Additional Instructions Thank you for trusting us with your care today! Please take Tylenol (2 pills, 650 mg), ibuprofen (2 pills, 400 mg) every 6 hours as needed for pain and fever control. After 24 hours may use ice therapy for additional pain control. Please keep your wound covered. Please change dressings daily. For the first 24 to 48 hours please use peroxide and topical antimicrobial ointment such as Neosporin or bacitracin. After this time soap and water should suffice for daily cleansing. Please return to the emergency department if your symptoms change or worsen. Specifically develop signs of infection which include redness, white-yellow discharge, increasing pain. Please follow with your primary care physician for further outpatient evaluation and management.[facility] Work Phone: Progress note No data available for this section [facility] Reason for referral (narrative)No reason for referral information availableWThe Christ Hospital Work Phone: Reason for visit Narrative* Diagnostic Procedure Only (Routine) - Closed Specialty Diagnoses / Procedures Referred By Contac t Referred To Contact [facility] Diagnoses Abnormal mammogram Procedures LAM DIAGNOSTIC BILAT DIAGNOSTIC MAMMOGRAPHY COMPUTER-AIDED DETCJ BI Patito Calabrese, JESSY.HOME HOUSEKEEPER [address] [place] [place] [address] [facility] [address] [place] [address] Referral ID Status Reason Start Date Expiration Date V isits Requested Visits Authorized [id number] Closed Auto-Generate d Referral 05/27/2021 06/26/2022 1 1 [facility] Reason for Referral Specialty Diagnoses / Procedures Referred By Loraine t Referred To Contact Dermatology Diagnoses Skin lesion of hand Procedures CONSULT TO DERMATOLOGY Leonid Ch MD [address] [place] [address] Referral ID Status Reason Start Date Expiration Date Visits Requested Visits Authorized [id number] Ref Not Required PCP Requested Referral 04/14/2022 04/14/2023 1 1 Summary Purpose Family History No Family History Records Found Relationship Condition Age at Onset Recorded Date/T adrianne mother Malignant neoplasm of colon Unknown Relationship Condition Age at Onset Recorded Date/T adrianne mother Malignant neoplasm of colon 70 Atrial fibrillation Unknown Cardiac disease Unknown Hypertension Unknown Hyperlipidemia Unknown father Lewy body dementia Unknown Diabetes mellitus Unknown Advance Directives No Advanced Directives Records Found Advance Directive Response Recorded Date/ Time Living Will No October 01, 2022 8:58am Power of Customer Service Correspondence Clerk No October 01 8:58am Advance Directive Response Recorded Date/ Time Living Will No October 01, 2022 7:58am Power of Customer Service Correspondence Clerk No October 01 7:58am Advance Directive Response Recorded Date/ Time Living Will No March 06, 2 023 4:11pm Power of Customer Service Correspondence Clerk No March 06, 2023 4:11pm Advance Directive Response Recorded Date/ Time Living Will No March 06, 2 023 5:11pm Do you have a Healthcare Power of Customer Service Correspondence Clerk? No March 06, 2023 5:11pm Chief Complaint and Reason for Visit Chief Complaint L BREAST BIRADS 4/5 BIOPSY f/u L BREAST BIOPSY 09/24 RC Reason for Visit Abnormal mammogram o f left breast Breast cancer Chief Complaint L BREAST BIRADS 4/5 BIOPSY f/u L BREAST BIOPSY 09/24 RC PREOP NEW - BREAST CA LT BREAST NDL LOC BLUE DYE RADIOTRACER AXILLARY SL LT BREAST NDL LOC BLUE DYE RADIOTRACER AXILLARY SL L BREAST BIOPSY 10-06 BREAST CA Reason for Visit Abnormal mammogram o f left breast Breast cancer Breast cancer, left Breast cancer, left Breast cancer, left Chief Complaint CONSULT - BREAST 6wk f/u L BREAST BIOPSY 10-06 3WKS REVIEW LABS/ONCOTYPE OTV OTV OTV Amb Documentation OTV 8WKS NO LABS 1 MONTH F/U POST RT BREAST SCP VASQUEZ Referral from Dr Dominick MILLER RIGHT BREAST LUMP SINUS DRAINAGE/SORE THROAT Reason for Visit Breast cancer, left Breast cancer, left Breast cancer, left Factor V Leiden mutation Breast cancer, left Breast cancer, left Breast cancer, left Breast cancer, left Breast cancer, left Factor V Leiden mutation Breast cancer, left Breast cancer, left Factor V Leiden mutation Well woman exam with routine gynecological exam Chief Complaint CONSULT - BREAST 6wk f/u L BREAST BIOPSY 10-06 3WKS REVIEW LABS/ONCOTYPE OTV OTV OTV Amb Documentation OTV 8WKS NO LABS 1 MONTH F/U POST RT BREAST SCP VASQUEZ Referral from Dr Dominick LAMBERT RIGHT BREAST LUMP SINUS DRAINAGE/SORE THROAT lac Reason for Visit Breast cancer, left Breast cancer, left Breast cancer, left Factor V Leiden mutation Breast cancer, left Breast cancer, left Breast cancer, left Breast cancer, left Breast cancer, left Factor V Leiden mutation Breast cancer, left Breast cancer, left Factor V Leiden mutation Well woman exam with routine gynecological exam Chief Complaint OTV OTV Amb Documentation OTV 8WKS NO LABS 1 MONTH F/U POST RT BREAST SCP VASQUEZ Referral from Dr Dominick MILLER RIGHT BREAST LUMP SINUS DRAINAGE/SORE THROAT lac LEFT SUPERIOR FRONTAL SCALP AND LEFT CENTRAL Reason for Visit Breast cancer, left Breast cancer, left Breast cancer, left Breast cancer, left Factor V Leiden mutation Breast cancer, left Breast cancer, left Factor V Leiden mutation Well woman exam with routine gynecological exam Chief Complaint Admit Date 6 month follow up breast June 25 3:27pm COUGH, CONGESTION July 06, 2024 4:1 3pm 1 Y FU July 09, 2024 7:5 8am Reason for Visit Admit Date Breast cancer, left June 25, 2024 3:2 7pm Acute sinusitis July 06, 2024 4:1 3pm Acute sinusitis July 09, 2024 7:5 8am Breast cancer July 09, 2024 7:5 8am Factor V Leiden mutation July 09 7:58am Screening for depression July 09 7:58am Immunization due July 09, 2024 7:5 8am Annual physical exam July 09, 2024 7: 58am Mixed hyperlipidemia July 09, 2024 7: 58am Chief Complaint Admit Date COUGH, CONGESTION July 06, 2024 4:1 3pm 1 Y FU July 09, 2024 7:5 8am 4 MONTH BREAST October 29, 2024 8: 29am Reason for Visit Admit Date Acute sinusitis July 06, 2024 4:1 3pm Acute sinusitis July 09, 2024 7:5 8am Breast cancer July 09, 2024 7:5 8am Factor V Leiden mutation July 09 7:58am Screening for depression July 09 7:58am Immunization due July 09, 2024 7:5 8am Annual physical exam July 09, 2024 7: 58am Mixed hyperlipidemia July 09, 2024 7: 58am Breast cancer, left October 29, 2024 8: 29am Chief Complaint Admit Date COUGH, CONGESTION July 06, 2024 4:1 3pm 1 Y FU July 09, 2024 7:5 8am 4 MONTH BREAST October 29, 2024 8: 29am 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 02, 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 2: 27pm Reason for Visit Admit Date Acute sinusitis July 06, 2024 4:1 3pm Acute sinusitis July 09, 2024 7:5 8am Breast cancer July 09, 2024 7:5 8am Factor V Leiden mutation July 09 7:58am Screening for depression July 09 7:58am Immunization due July 09, 2024 7:5 8am Annual physical exam July 09, 2024 7: 58am Mixed hyperlipidemia July 09, 2024 7: 58am Breast cancer, left October 29, 2024 8: 29am Encounter for routine gynecological exam ination November 02, 2024 2:27pm Chief Complaint Admit Date 4 MONTH BREAST October 29, 2024 8: 29am 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 02, 2024 2: 27pm Reason for Visit Admit Date Breast cancer, left October 29, 2024 8: 29am Encounter for routine gynecological exam ination November 02, 2024 2:27pm Additional Source Comments Source Comments (unrecognize d section and content) In the event this informatio n is protected by the Federal Confidentiality of Alcohol and Drug Abuse Patient Records regulations: The Federal rules restrict any use of the information to criminally investigate or prosecute any alcohol or drug abuse patient.[facility] event this information is protected by the Federal Confidentiality of Alcohol and Drug Abuse Patient Records regulations: The Federal rules restrict any use of the information to criminally investigate or prosecute any alcohol or drug abuse patient.[facility] Care Teams (unrecognized sec tion and content) Commissioning Editor Relationship Specialty Start Date End Date Kady Munoz PCP - General Family Practice 03/05/13 Commissioning Editor Relationship Specialty Start Date End Date Kady Munoz DO PCP - General Family Medicine 03/05/13 Team Status: Active Member Role Status Dates Dr. Kady Munoz DO Family Provider Active Angélica Ramirez NP, VENEER STACKER-C Primary Care Provider Active Team Status: Inactive Member Role Status Dates Angélica Ramirez NP, VENEER STACKER-C Primary Care Pr ovider, Attending Provider, Referring Provider Active Team Status: Inactive Member Role Status Dates Angélica Ramirez NP, VENEER STACKER-C Primary Care Provider, Referr ing Provider Active Dr. Kady Byers MD Attending Provider Active Team Status: Inactive Member Role Status Dates Angélica Ramirez VENEER STACKER, VENEER STACKER-C Primary Care Provider Active Dr. Kady Byers MD Attending Provider, Referring Provider Active Team Status: Inactive Member Role Status Dates Angélica Ramirez VENEER STACKER, VENEER STACKER-C Primary Care Provider, Referr ing Provider Active Dr. John Jenkins MD Attending Provider Active Team Status: Active Member Role Status Dates Angélica Ramirez VENEER STACKER, VENEER STACKER-C Primary Care Provider Active Dr. Kady Byers MD Attending Provid er, Referring Provider, Other Provider Active Team Status: Active Member Role Status Dates Angélica Ramirez VENEER STACKER, VENEER STACKER-C Primary Care Provider Active Dr. Addison Larson MD Attending Provider Active Dr. Kady Byers MD Referring Provider Active Team Status: Inactive Member Role Status Dates Angélica Ramirez VENEER STACKER, VENEER STACKER-C Primary Care Provider Active Dr. John Jenkins MD Attending Provider, Referring Pro vider Active Team Status: Inactive Member Role Status Dates Angélica Ramirez VENEER STACKER, VENEER STACKER-C Primary Care Provider, Referr ing Provider Active Dr. Raymundo Tan DO Attending Provider Active Team Status: Active Member Role Status Dates Angélica Ramirez VENEER STACKER, VENEER STACKER-C Primary Care Provider Active Dr. Raymundo Tan DO Attending Provider, Referring P rovider Active Team Status: Inactive Member Role Status Dates Angélica Ramirez VENEER STACKER, VENEER STACKER-C Primary Care Provider Active Dr. Raymundo Tan DO Attending Provider, Referring P rovider Active Team Status: Active Member Role Status Dates Angélica Ramirez VENEER STACKER, VENEER STACKER-C Primary Care Provider Active Dr. Raymundo Tan DO Attending Provider Active Team Status: Inactive Member Role Status Dates Angélica Ramirez VENEER STACKER, VENEER STACKER-C Primary Care Provider, Referr ing Provider Active Armida Gamble VENEER STACKER, VENEER STACKER-C Attending Provider Active Team Status: Inactive Member Role Status Dates Angélica Ramirez VENEER STACKER, VENEER STACKER-C Primary Care Provider, Referr ing Provider Active Dr. Julianna Hsu DO Attending Provider Activ e Team Status: Inactive Member Role Status Dates Angélica Ramirez VENEER STACKER, VENEER STACKER-C Primary Care Provider, Referr ing Provider Active Layo Mccarthy PA, PA Attending Provider Active Team Status: Active Member Role Status Dates Angélica Ramirez VENEER STACKER, VENEER STACKER-C Primary Care Provider Active Dr. Julianna Hsu DO Attending Provider, Refe rring Provider Active Team Status: Active Member Role Status Dates Angélica Ramirez VENEER STACKER, VENEER STACKER-C Primary Care Provider Active Dr. John Jenkins MD Referring Provider Active Dr. Raymundo Tan DO Attending Provider Active Team Status: Inactive Member Role Status Dates Angélica Ramirez VENEER STACKER, VENEER STACKER-C Primary Care Provider Active Dr. Julianna Hsu DO Attending Provider, Refe rring Provider Active Team Status: Inactive Member Role Status Dates Angélica Ramirez VENEER STACKER, VENEER STACKER-C Primary Care Provider Active Dr. Rock Sheehan DO Emergency Provider Active Team Status: Inactive Member Role Status Dates Angélica Ramirez VENEER STACKER, VENEER STACKER-C Primary Care Provider Active Dr. Rock Sheehan DO Attending Provider, Emergency P august Active Team Status: Inactive Member Role Status Dates CANDIDA OQUENDO Attending Provider, Referring Provider Active Angélica Ramirez VENEER STACKER, VENEER STACKER-C Primary Care Provider Active Team Status: Active Member Role Status Dates Dr. Chelsi Elkins MD Primary Care Provider Active Team Status: Inactive Member Role Status Dates Dr. Chelsi Elkins MD Primary Care Provider Active Start: June 25, 2024 End: June 25, 2024 Dr. Chelsi Elkins MD Referring Provider Active Start: June 25, 2024 End: June 25, 2024 Dr. Raymundo Tan DO Attending Provider Active Start: June 25, 2024 End: June 25, 2024 Team Status: Inactive Member Role Status Dates Dr. Chelsi Elkins MD Primary Care Provider Active Start: July 06, 2024 End: July 06, 2024 Dr. Chelsi Elkins MD Referring Provider Active Start: July 06, 2024 End: July 06, 2024 Ezio Watkins PA, PA Attending Provider Active Sta rt: July 06, 2024 End: July 06, 2024 Team Status: Inactive Member Role Status Dates Angélica Ramirez VENEER STACKER, VENEER STACKER-C Referring Provider Active Start: July 09, 2024 End: July 09, 2024 Dr. Chelsi Elkins MD Primary Care Provider Active Start: July 09, 2024 End: July 09, 2024 Dr. Chelsi Elkins MD Attending Provider Active Start: July 09, 2024 End: July 09, 2024 Team Status: Inactive Member Role Status Dates Dr. Chelsi Elkins MD Primary Care Provider Active Start: August 10, 2024 End: August 10, 2024 Dr. Chelsi Elkins MD Attending Provider Active Start: August 10, 2024 End: August 10, 2024 Dr. Chelsi Elkins MD Referring Provider Active Start: August 10, 2024 End: August 10, 2024 Team Status: Active Member Role/Relationship Status Dates Dr. Chelsi Elkins MD Primary Care Provider Active Team Status: Inactive Member Role/Relationship Status Dates Dr. Chelsi Elkins MD Primary Care Provider Active Start: July 06, 2024 End: July 06, 2024 Dr. Chelsi Elkins MD Referring Provider Active Start: July 06, 2024 End: July 06, 2024 Ezio Watkins PA PA Attending Provider Active Sta rt: July 06, 2024 End: July 06, 2024 Team Status: Inactive Member Role/Relationship Status Dates Angélica Ramirez VENEER STACKER, VENEER STACKER-C Referring Provider Active Start: July 09, 2024 End: July 09, 2024 Dr. Chelsi Elkins MD Primary Care Provider Active Start: July 09, 2024 End: July 09, 2024 Dr. Chelsi Elkins MD Attending Provider Active Start: July 09, 2024 End: July 09, 2024 Team Status: Inactive Member Role/Relationship Status Dates Dr. Chelsi Elkins MD Primary Care Provider Active Start: August 10, 2024 End: August 10, 2024 Dr. Chelsi Elkins MD Attending Provider Active Start: August 10, 2024 End: August 10, 2024 Dr. Chelsi Elkins MD Referring Provider Active Start: August 10, 2024 End: August 10, 2024 Team Status: Inactive Member Role/Relationship Status Dates Dr. Chelsi Elkins MD Primary Care Provider Active Start: October 29, 2024 End: October 29, 2024 Dr. Chelsi Elkins MD Referring Provider Active Start: October 29, 2024 End: October 29, 2024 Dr. Raymundo Tan DO Attending Provider Active Start: October 29, 2024 End: October 29, 2024 Team Status: Inactive Member Role/Relationship Status Dates Dr. Chelsi Elkins MD Primary Care Provider Active Start: November 02, 2024 End: November 02, 2024 Dr. Chelsi Elkins MD Referring Provider Active Start: November 02, 2024 End: November 02, 2024 Dr. Julianna Hsu DO Attending Provider Activ e Start: November 02, 2024 End: November 02, 2024 Team Status: Inactive Member Role/Relationship Status Dates Dr. Chelsi Elkins MD Primary Care Provider Active Start: August 10, 2024 End: August 10, 2024 Dr. Chelsi Elkins MD Attending Provider Active Start: August 10, 2024 End: August 10, 2024 Dr. Chelsi Elkins MD Referring Provider Active Start: August 10, 2024 End: August 10, 2024 Team Status: Inactive Member Role/Relationship Status Dates Dr. Chelsi Elkins MD Primary Care Provider Active Start: October 29, 2024 End: October 29, 2024 Dr. Chelsi Elkins MD Referring Provider Active Start: October 29, 2024 End: October 29, 2024 Dr. Raymundo Tan DO Attending Provider Active Start: October 29, 2024 End: October 29, 2024 Team Status: Inactive Member Role/Relationship Status Dates Dr. Chelsi Elkins MD Primary Care Provider Active Start: November 02, 2024 End: November 02, 2024 Dr. Chelsi Elkins MD Referring Provider Active Start: November 02, 2024 End: November 02, 2024 Dr. Julianna Hsu DO Attending Provider Activ e Start: November 02, 2024 End: November 02, 2024 Team Status: Inactive Member Role/Relationship Status Dates Dr. Chelsi Elkins MD Primary Care Provider Active Start: November 02, 2024 End: November 02, 2024 Dr. Julianna Hsu DO Attending Provider Activ e Start: November 02, 2024 End: November 02, 2024 Reason for Visit (unrecogniz ed section and content) Reason Comments left index finger pain X 2 months INFORMATION SOURCE (unrecogn ized section and content) DATE CREATED AUTHOR 04/15/2022 [facility] DATE CREATED AUTHOR AUTHOR'S ORGANIZ ATION 09/23/2022 [facility] ([place]) DATE CREATED AUTHOR AUTHOR'S ORGANIZ ATION 01/17/2025 [facility] Goals (unrecognized section and content) Goals may be documented in a n alternate section No data available for this section No data available for this section No data available for this sectionGoals may be documented in an alternate sectionGoals may be documented in an alternate sectionGoals may be documented in an alternate sectionGoals may be documented in an alternate sectionGoals may be documented in an alternate sectionGoals may be documented in an alternate sectionGoals may be documented in an alternate sectionGoals may be documented in an alternate sectionGoals may be documented in an alternate section FOR RECORDS PERTAINING TO PATIENTS WHO ARE OR HAVE BEEN ENROLLED IN A CHEMICAL DEPENDENCY/SUBSTANCEABUSE PROGRAM, SOME INFORMATION MAY BE OMITTED. This clinical summary was aggregated from multiple sources. Caution should be exercised in using it in the provision of clinical care. This summary normalizes information from multiple sources, and as a consequence, information in this document may materially change the coding, format and clinical context of patient data. In addition, data may be omitted in some cases. CLINICAL DECISIONS SHOULD BE BASED ON THE PRIMARY CLINICAL RECORDS. [employer] [facility]. provides no warranty or guarantee of the accuracy or completeness of information in this document.
== END | disposition home or self-care (01) ==
LOC: OPBI 07:18
PROVIDERS: PCP Internal Medicine; Referring Provider Student in an Organized Health Care Education/Training Program; Visit Provider Student in an Organized Health Care Education/Training Program
DX: Z12.31 Encounter for screening mammogram for malignant neoplasm of breast (principal); C50.212 Malignant neoplasm of upper-inner quadrant of left female breast; Z17.0 Estrogen receptor positive status [ER+]
CPT/HCPCS: 77063; 77067